=== PATIENT | male | born 1975 | race African-American/Black ===

== ENCOUNTER 2024-08-12 14:06 | Inpatient (IN) | payer OTHER, MEDICAID ==
[~2024-08-12] VITALS: Ht 195.6 cm; Wt 87.8 kg
[2024-08-12] VITALS (25 sets, daily range): BP systolic 73–196; BP diastolic 44–107; PULSE 72–114; RESP 16–24; TEMP 97.6; O2SAT 95–100
[~2024-08-12 14:06] MED LIST: OXYC30TA50 PO; PANT40T PO; PROM25TA10 PO; insulin
[2024-08-12] MEDS: AMIODARONE BOLUS KIT 100 ML IV ONE (14:17)
[2024-08-12] MEDS: AMIODARONE 360mg/200mL PREMIX 200 ML IV ONE ×2 (14:27→14:38)
[2024-08-12] MEDS: MIDAZOLAM DRIP 50 mg/50mL 50 ML IV ONE ×2 (14:36→15:48)
[2024-08-12] MEDS: EPINEPHrine HCL 250 ML IV ONE (14:38)
[2024-08-12] MEDS: NOREPINEPHRINE 8 MG/250ML KIT 250 ML IV SCH (14:42)
--- NOTE | 2024-08-12 15:06 | DVH ---
CHEST RADIOGRAPH Indication: POST INTUBATION AND OG Technique: Single frontal view of the chest was obtained COMPARISON: None FINDINGS: Lines and Tubes: Endotracheal tube, enteric catheter, left and right central venous catheter is in sa tisfactory position. Lungs: Clear Pleura: No effusion. No pneumothorax. Cardiomediastinal contours: Unremarkable Bones: Unremarkable IMPRESSION: Lines and tubes in satisfactory position.
[2024-08-12 15:09] LABS: Hematocrit 32.2 % (41.0-53.0); Mean Corpuscular Volume 102.8 fL (80.0-100.0); Red Blood Cells 3.14 10^6/uL (4.5-5.90)
[2024-08-12 15:10] LABS: Mean Corpuscular Hemoglobin 31.8 pg (28.0-32.0); Mean Corpuscular Hgb Conc. 30.9 g/dL (32.0-36.0); Platelet Count (auto) 172 10^3/uL (140-450); Red Cell Distribution Width 13.7 % (11.8-14.3)
[2024-08-12 15:14] LABS: Basophils % (manual) 0 (0.0-2.0); Blast Cells 0; Eosinophils % (manual) 0 (0-7); Myelocytes % 0; Promyelocytes % 0; Reactive Lymphocytes 0
[2024-08-12] MEDS: NOREPINEPHRINE 8 MG/250ML KIT 250 ML IV ONE (15:15)
[2024-08-12] MEDS: EPINEPHrine HCL 250 ML IV SCH (15:16)
[2024-08-12] MEDS: MIDAZOLAM DRIP 50 mg/50mL 50 ML IV SCH (15:17)
[2024-08-12 15:20] LABS: Alanine Aminotransferase 201 U/L (7-40); Albumin 3.1 g/dL (3.2-4.8); Alkaline Phosphatase 67 U/L (46-116); Anion Gap 18 (5-15); Aspartate Aminotransferase 290 U/L (13-40); BUN/Creatinine Ratio 3.8 (10.0-20.0); Blood Urea Nitrogen 16 mg/dL (9-23); Carbon Dioxide 22 mmol/L (20-31); Chloride 103 mmol/L (98-107); Glucose 321 mg/dL (74-106); Magnesium 2.2 mg/dL (1.6-2.6); Potassium 3.7 mmol/L (3.5-5.1); Sodium 143 mmol/L (136-145); Total Protein 5.3 g/dL (5.7-8.2)
[2024-08-12 15:21] LABS: Bilirubin, Total 0.2 mg/dL (0.2-1.0); Lactic Acid w/Reflex 12.8 mmol/L (0.4-2.0)
[2024-08-12 15:24] LABS: INR 1.16 (0.9-1.15); Partial Thromboplastin Time 39.3 SEC (24.5-34.5); Prothrombin Time 12.1 sec (9.3-11.8)
[2024-08-12] MEDS: PROPOFOL 100 ML IV SCH (15:28)
--- NOTE | 2024-08-12 15:38 | ECG ---
[facility] Test Date: 2024-08-12 Test Time: 15:36:50 Pat Name: KATIE REYES Department: ER Room: [address] [place] [address] Gender: M Activity Therapist: ROWENA : 1975 Requested By: SAMARA RIVERA Order Number: [id number] Reading MD: Shahab Winters Measurements Intervals Bledsoe Rate: 106 P: 76 AK: 176 QRS: -26 QRSD: 135 T: 30 QT: 370 QTc: 492 Interpretive Statements Sinus tachycardia Multiple ventricular premature complexes Right bundle branch block Inferior infarct, old Electronically Signed On 08-14-2024 14:56:52 PDT by Shahab Winters Please click the below link to view image of tracing.
--- NOTE | 2024-08-12 15:42 | DVHINCON2 ---
Date of service: Aug 12, 2024 History of Present Illness 49 yo M with ESRD , ?pad, toe amputation admitted for sob and shock. pt was found unresponsive at HD. he was brought here and bagged per ER team. pt then had PEA per dr morse and then code saritha mckinney. pt was intubated and given epi. now HR 130s and bp 180s . ecg showed ,wide complex rhythm rate of 130s. i was called for immediate assessment and saw the patient within 5 mins of call. Past Medical History reviewed Family History: FH: kidney disease G8 SISTER Family history: Arthritis G8 FATHER Family history: Diabetes mellitus G8 MOTHER G8 FATHER G8 SISTER Allergies: Coded Allergies: Ondansetron (Verified Allergy, Intermediate, Itching, 01/08/23) Metoclopramide (Unverified Allergy, Unknown, 12/19/16) Morphine (Unverified Allergy, Unknown, 12/19/16) Prochlorperazine (Unverified Allergy, Unknown, 12/19/16) Home Meds Active Scripts Pantoprazole Sodium Sesquihydr (Pantoprazole Sodium) 40 Mg Tab, 40 MG PO BID, #60 TAB Prov:MANUEL WAY MD 10/15/16 Reported Medications [insulin] No Conflict Check 01/11/18 Promethazine Hcl (Promethazine Hcl) 25 Mg Tab, 50 MG PO QIDP PRN for NAUSEA OR VOMITING, TAB 10/13/16 Oxycodone Hcl (Roxicodone) 30 Mg Tab, 30 MG PO QIDP PRN for SEVERE PAIN, TAB 01/27/14 Current Medications Current Medications Medications (Trade) Dose Ordered Sig/Clay Route PRN Reason Start Time Stop Time Status Last Admin Midazolam HCl 50 ml @ 1 mls/hr Q24H IV 08/12/24 14:45 08/12/24 15:17 Propofol 100 ml @ 2.19 mls/hr Q24H IV 08/12/24 14:45 08/12/24 15:28 Epinephrine HCl 250 ml @ 7.5 mls/hr Q24H IV 08/12/24 14:45 Norepinephrine Bitartrate 250 ml @ 3.75 mls/hr Q24H IV 08/12/24 14:45 08/12/24 14:42 Review of Systems not obtaiend Vital Signs Vital Signs Date Time Temp Pulse Resp B/P (MAP) Pulse Ox O2 Delivery O2 Flow Rate FiO2 08/12/24 15:28 183/104 08/12/24 14:30 18 95 Mechanical Ventilator+ 100 100 08/12/24 14:22 137 Physical Exam intubated sedated s1 s2 tachycardic diffuse rhonchi abd soft nt/ Labs/Diagnostic Data Labs Test 08/12/24 14:20 Range/Units White Blood Count 11.0 H 4.4-10.8 10^3/uL Red Blood Count 3.14 L 4.5-5.90 10^6/uL Hemoglobin 10.0 L 13.5-17.5 g/dL Hematocrit 32.2 L 41.0-53.0 % Mean Corpuscular Volume 102.8 H 80.0-100.0 fL Mean Corpuscular Hemoglobin 31.8 28.0-32.0 pg Mean Corpuscular Hemoglobin Concent 30.9 L 32.0-36.0 g/dL Red Cell Distribution Width 13.7 11.8-14.3 % Platelet Count 172 140-450 10^3/uL Mean Platelet Volume 8.4 6.9-10.8 fL Neutrophils (%) (Auto) 37.0-80.0 % Lymphocytes (%) (Auto) 10.0-50.0 % Monocytes (%) (Auto) 0.0-12.0 % Basophils (%) (Auto) 0.0-2.0 % Neutrophils # (Auto) 1.6-8.6 10 ^3/uL Lymphocytes # (Auto) 0.4-5.4 10 ^3/uL Monocytes # (Auto) 0-1.3 10 ^3/uL Prothrombin Time 12.1 H 9.3-11.8 sec Prothrombin Time INR 1.16 H 0.9-1.15 Activated Partial Thromboplast Time 39.3 H 24.5-34.5 SEC Sodium Level 143 136-145 mmol/L Potassium Level 3.7 3.5-5.1 mmol/L Chloride Level 103 98-107 mmol/L Carbon Dioxide Level 22 20-31 mmol/L Anion Gap 18 H 5-15 Blood Urea Nitrogen 16 9-23 mg/dL Creatinine 4.24 H 0.700-1.30 mg/dL Glomerular Filtration Rate Calc 16 >90 mL/min BUN/Creatinine Ratio 3.8 L 10.0-20.0 Serum Glucose 321 H 74-106 mg/dL Lactic Acid Level 12.8 *H 0.4-2.0 mmol/L Calcium Level 9.0 8.7-10.4 mg/dL Magnesium Level 2.2 1.6-2.6 mg/dL Total Bilirubin 0.2 0.2-1.0 mg/dL Aspartate Amino Transferase (AST) 290 H 13-40 U/L Alanine Aminotransferase (ALT) 201 H 7-40 U/L Alkaline Phosphatase 67 46-116 U/L Troponin I High Sensitivity 24 </=54 ng/L B-Type Natriuretic Peptide 52.46 0-100 pg/mL Total Protein 5.3 L 5.7-8.2 g/dL Albumin 3.1 L 3.2-4.8 g/dL Assessment cardiac arrest ESRD on HD wide complex tachycardia r/o ACS resp failure AMS Plan/Recommendation agree with current management wide complex rhythm, BMP is pending ,K is pending , pt got some amount of HD stat echo shows hyperdynamic LV ef 70%, trivial pericardial effusion, RV appears normal function limited study fu troponin vent management bicarb if needed renal consult pressors as needed, levophed 40 mins critical care time spent Plan discussed with: Patient CYNDIE BACON MD Aug 12, 2024 15:42
--- NOTE | 2024-08-12 15:43 | DVHINCON2 ---
Date of service: Aug 12, 2024 Reason for Consultation ESRD to manage HD History of Present Illness Patient is 49 y/o male with PMH of ESRD on HD q MWF, DM and hypertension is admitted from HD center when patient became unresponsiveness and hypotension. In the ER patient coded status post cardiac arrest, taken to the cardiac cath technologist by Dr. Ruth status post PTCA and PCI. Patient intubated on ventilator Past Medical History End-stage renal disease, DM, High Lipids, HTN, MT, peripheral arterial disease Past Surgical History PTCA, PCI, Right chest tunneled IJ hemodialysis catheter Bilateral midtarsal foot amputation Allergies: Coded Allergies: Ondansetron (Verified Allergy, Intermediate, Itching, 01/08/23) Metoclopramide (Unverified Allergy, Unknown, 12/19/16) Morphine (Unverified Allergy, Unknown, 12/19/16) Prochlorperazine (Unverified Allergy, Unknown, 12/19/16) Home Meds Active Scripts Pantoprazole Sodium Sesquihydr (Pantoprazole Sodium) 40 Mg Tab, 40 MG PO BID, #60 TAB Prov:MANUEL WAY MD 10/15/16 Reported Medications [insulin] No Conflict Check 01/11/18 Promethazine Hcl (Promethazine Hcl) 25 Mg Tab, 50 MG PO QIDP PRN for NAUSEA OR VOMITING, TAB 10/13/16 Oxycodone Hcl (Roxicodone) 30 Mg Tab, 30 MG PO QIDP PRN for SEVERE PAIN, TAB 01/27/14 Current Medications Current Medications Medications (Trade) Dose Ordered Sig/Clay Route PRN Reason Start Time Stop Time Status Last Admin Midazolam HCl 50 ml @ 1 mls/hr Q24H IV 08/12/24 14:45 08/13/24 07:53 Propofol 100 ml @ 2.19 mls/hr Q24H IV 08/12/24 14:45 08/13/24 09:58 Epinephrine HCl 250 ml @ 7.5 mls/hr Q24H IV 08/12/24 14:45 Norepinephrine Bitartrate 250 ml @ 3.75 mls/hr Q24H IV 08/12/24 14:45 08/12/24 14:42 Ticagrelor (Brilinta) 90 mg BID PO 08/13/24 07:30 08/13/24 07:53 Aspirin 81 mg DAILY PO 08/13/24 10:00 08/13/24 09:23 Atorvastatin Calcium (Lipitor) 80 mg DAILY PO 08/12/24 22:00 08/13/24 09:23 Diagnostic Test (Pha) (Accu-Chek Comfort Curve T) 1 strip Q6HR 08/13/24 12:00 Insulin Human Regular (InsuLIN R) Q6HR SC 08/13/24 12:00 Dextrose 50 ml UD PRN IV Blood Sugar LESS THAN 60 08/13/24 09:00 Family History: FH: kidney disease G8 SISTER Family history: Arthritis G8 FATHER Family history: Diabetes mellitus G8 MOTHER G8 FATHER G8 SISTER Review of Systems Can not be obtained H&P Exam Vital Signs/I&O Vital Sign Date Time Temp Pulse Resp B/P (MAP) Pulse Ox O2 Delivery O2 Flow Rate FiO2 08/13/24 11:17 88 18 107/80 (89) 100 30 08/13/24 10:00 Mechanical Ventilator+ 08/13/24 04:15 98.5 98.5 Intake and Output 08/12/24 08/13/24 19:00 07:00 Intake Total 128.03 ml 1493.82 ml Output Total 700 ml Balance 128.03 ml 793.82 ml Intake Oral 60 ml IV Total 128.03 ml 1433.82 ml Output Urine Total 700 ml Physical Exam Patient intubated on ventilator Lungs clear to auscultation bilaterally Cardiac exam regular rate and rhythm GI soft nontender Arauz catheter Extremity bilateral midtarsal amputation Neuro patient is unresponsive Labs/Diagnostic Data Labs/Diagnostic Data Laboratory Tests Test 08/13/24 06:55 08/13/24 03:30 08/12/24 19:40 08/12/24 18:15 Range/Units Blood Gas Specimen Type Arterial Arterial Blood Gas Sample Site Right radial Right radial Blood Gas Patient Temperature 37.0 37.0 Arterial Blood Date Drawn [id number] Arterial Blood pH 7.443 7.512 H 7.350-7.450 Arterial Blood Partial Pressure CO2 41.2 33.8 L 35.0-48.0 mmHg Arterial Blood Partial Pressure O2 60.9 L 83.2 83.0-108.0 mmHg Arterial Blood HCO3 27.5 26.5 21.0-28.0 mmol/L Arterial Blood Oxygen Saturation 90.3 L 96.0 94.0-98.0 % Arterial Blood Base Excess 3.2 H 3.7 H -2.0-3.0 mmol/L Arterial Blood Oxyhemoglobin 89.8 L 92.9 L 94.0-98.0 % Arterial Blood Carboxyhemoglobin 0.6 2.9 H 0.5-1.5 % Arterial Blood Methemoglobin 0.0 0.3 0.0-1.5 % Obey Test Modified Modified Blood Gas Total Hemoglobin 11.50 L 11.50 L 13.5-17.5 g/dL Blood Gas Set Respiration Rate 16.0 20.0 Blood Gas Modality Vent - ac Vent - ac FiO2 % 30.0 30.0 Blood Gas Tidal Volume 500.0 500.0 Blood Gas PEEP or CPAP 5.0 5.0 White Blood Count 20.1 #H 4.4-10.8 10^3/uL Red Blood Count 3.51 L 4.5-5.90 10^6/uL Hemoglobin 11.1 L 13.5-17.5 g/dL Hematocrit 33.7 L 41.0-53.0 % Mean Corpuscular Volume 95.9 # 80.0-100.0 fL Mean Corpuscular Hemoglobin 31.6 28.0-32.0 pg Mean Corpuscular Hemoglobin Concent 33.0 32.0-36.0 g/dL Red Cell Distribution Width 13.2 11.8-14.3 % Platelet Count 248 140-450 10^3/uL Mean Platelet Volume 8.5 6.9-10.8 fL Neutrophils (%) (Auto) 90.4 H 37.0-80.0 % Lymphocytes (%) (Auto) 4.2 L 10.0-50.0 % Monocytes (%) (Auto) 4.9 0.0-12.0 % Eosinophils (%) (Auto) 0.2 0.0-7.0 % Basophils (%) (Auto) 0.3 0.0-2.0 % Neutrophils # (Auto) 18.1 H 1.6-8.6 10 ^3/uL Lymphocytes # (Auto) 0.9 0.4-5.4 10 ^3/uL Monocytes # (Auto) 1.0 0-1.3 10 ^3/uL Eosinophils # (Auto) 0 0-0.8 10 ^3/uL Basophils # (Auto) 0.1 0-0.2 10 ^3/uL Nucleated Red Blood Cells 0.0 % Sodium Level 143 136-145 mmol/L Potassium Level 3.8 3.5-5.1 mmol/L Chloride Level 101 98-107 mmol/L Carbon Dioxide Level 28 20-31 mmol/L Anion Gap 14 5-15 Blood Urea Nitrogen 26 #H 9-23 mg/dL Creatinine 5.18 H 0.700-1.30 mg/dL Glomerular Filtration Rate Calc 13 >90 mL/min BUN/Creatinine Ratio 5.0 L 10.0-20.0 Serum Glucose 159 #H 74-106 mg/dL Calcium Level 7.9 L 8.7-10.4 mg/dL Total Bilirubin 0.2 0.2-1.0 mg/dL Aspartate Amino Transferase (AST) 433 H 13-40 U/L Alanine Aminotransferase (ALT) 255 H 7-40 U/L Alkaline Phosphatase 83 46-116 U/L Total Protein 6.5 5.7-8.2 g/dL Albumin 3.8 3.2-4.8 g/dL Urine Color Light-brown Yellow Urine Clarity Turbid H Clear Urine pH 6.0 5.0-9.0 Urine Specific [place] 1.015 1.001-1.035 Urine Protein 2+ H Negative Urine Ketones Negative Negative Urine Blood Negative Negative /uL Urine Nitrite Negative Negative Urine Bilirubin Negative Negative Urine Urobilinogen Normal Negative mg/dL Urine Leukocyte Esterase Negative Negative /uL Urine RBC <1 0 - 3 /hpf Urine Microscopic WBC < 1 0-3 /HPF Urine Squamous Epithelial Cells Mod <5 /hpf Urine Bacteria None seen None Seen /hpf Urine Glucose Normal Normal mg/dL Test 08/12/24 17:27 08/12/24 16:22 08/12/24 15:46 08/12/24 14:20 Range/Units Lactic Acid Level 3.6 *H 12.8 *H 0.4-2.0 mmol/L Troponin I High Sensitivity 05908 *H 5974 *H 24 </=54 ng/L Blood Gas Specimen Type Arterial Blood Gas Sample Site Right radial Blood Gas Patient Temperature 37.0 Arterial Blood Date Drawn [id number] Arterial Blood pH 7.170 *L 7.350-7.450 Arterial Blood Partial Pressure CO2 52.4 H 35.0-48.0 mmHg Arterial Blood Partial Pressure O2 222.9 H 83.0-108.0 mmHg Arterial Blood HCO3 18.7 L 21.0-28.0 mmol/L Arterial Blood Oxygen Saturation 99.1 H 94.0-98.0 % Arterial Blood Base Excess -9.8 L -2.0-3.0 mmol/L Arterial Blood Oxyhemoglobin 94.9 94.0-98.0 % Arterial Blood Carboxyhemoglobin 3.9 H 0.5-1.5 % Arterial Blood Methemoglobin 0.3 0.0-1.5 % Obey Test Yes Blood Gas Total Hemoglobin 11.90 L 13.5-17.5 g/dL Blood Gas Set Respiration Rate 18.0 Blood Gas Modality Vent - ac FiO2 % 80.0 Blood Gas Tidal Volume 500.0 Blood Gas PEEP or CPAP 5.0 Blood Gas Critical Value Read Back Yes Blood Gas Notified Whom janessa Head md Blood Gas Notified Time [id number] Blood Gas Notified By rebeka Freire rrt White Blood Count 11.0 H 4.4-10.8 10^3/uL Red Blood Count 3.14 L 4.5-5.90 10^6/uL Hemoglobin 10.0 L 13.5-17.5 g/dL Hematocrit 32.2 L 41.0-53.0 % Mean Corpuscular Volume 102.8 H 80.0-100.0 fL Mean Corpuscular Hemoglobin 31.8 28.0-32.0 pg Mean Corpuscular Hemoglobin Concent 30.9 L 32.0-36.0 g/dL Red Cell Distribution Width 13.7 11.8-14.3 % Platelet Count 172 140-450 10^3/uL Mean Platelet Volume 8.4 6.9-10.8 fL Neutrophils (%) (Auto) 37.0-80.0 % Lymphocytes (%) (Auto) 10.0-50.0 % Monocytes (%) (Auto) 0.0-12.0 % Basophils (%) (Auto) 0.0-2.0 % Neutrophils # (Auto) 1.6-8.6 10 ^3/uL Lymphocytes # (Auto) 0.4-5.4 10 ^3/uL Monocytes # (Auto) 0-1.3 10 ^3/uL Differential Total Cells Counted 100.0 100 Neutrophils % (Manual) 40 37.0-80.0 Band Neutrophils % (Manual) 6 Lymphocytes % (Manual) 41 10.0-50.0 Monocytes % (Manual) 12 0-12 Eosinophils % (Manual) 0 0-7 Basophils % (Manual) 0 0.0-2.0 Metamyelocytes % (manual) 1 Myelocytes % (Manual) 0 Promyelocytes % (Manual) 0 Blast Cells % (Manual) 0 Reactive Lymphocytes 0 Platelet Estimate Adequate Anisocytosis (manual) Slight Macrocytosis Slight [place] Cells Few Prothrombin Time 12.1 H 9.3-11.8 sec Prothrombin Time INR 1.16 H 0.9-1.15 Activated Partial Thromboplast Time 39.3 H 24.5-34.5 SEC Sodium Level 143 136-145 mmol/L Potassium Level 3.7 3.5-5.1 mmol/L Chloride Level 103 98-107 mmol/L Carbon Dioxide Level 22 20-31 mmol/L Anion Gap 18 H 5-15 Blood Urea Nitrogen 16 9-23 mg/dL Creatinine 4.24 H 0.700-1.30 mg/dL Glomerular Filtration Rate Calc 16 >90 mL/min BUN/Creatinine Ratio 3.8 L 10.0-20.0 Serum Glucose 321 H 74-106 mg/dL Uric Acid 4.3 3.7-9.2 mg/dL Calcium Level 9.0 8.7-10.4 mg/dL Phosphorus Level 5.6 H 2.4-5.1 mg/dL Magnesium Level 2.2 1.6-2.6 mg/dL Total Bilirubin 0.2 0.2-1.0 mg/dL Aspartate Amino Transferase (AST) 290 H 13-40 U/L Alanine Aminotransferase (ALT) 201 H 7-40 U/L Alkaline Phosphatase 67 46-116 U/L B-Type Natriuretic Peptide 52.46 0-100 pg/mL Total Protein 5.3 L 5.7-8.2 g/dL Albumin 3.1 L 3.2-4.8 g/dL Amylase Level 94 30-118 U/L Assessment ESRD on HD Acute respiratory failure, intubated on ventilator Status post cardiac arrest Acute MT status post PTCA/PCI 6/2 DM type II Hyperglycemia Septic shock Anemia of CKD, we will compensated REC: Resume hemodialysis 3 times weekly Strict I&Os IV Abx Insulin SS IV pressors for BP support Cardiology on board Will continue to follow Patient seen and examined by myself. I discussed my plan of care with the primary nurse at the bedside I would like to thank Dr. Head for the consult, will follow up Plan discussed with: Spouse, Other (Nurse) YANNA GARCIA MD Aug 12, 2024 15:42
[2024-08-12 15:54] LABS: Base Excess -9.8 mmol/L (-2.0-3.0)
--- NOTE | 2024-08-12 15:58 | DVHSR ---
APPROVED REPORT EXAM: Two-dimensional and M-mode echocardiogram with Doppler and color Doppler. Blood Pressure: 142/73 mmHg INDICATION S/P CPR RISK FACTORS Height: 6'0", Weight: 160 DIMENSIONS LVDd3.4 (3.8-5.7cm)LA (2D) (1.9-4.0cm)Aortic Root3.8 (2.0-3.7cm) LVDs2.3 (2.5-4.0cm)LA (MM) (1.9-4.0cm)Aortic Cusp Exc1.8 (1.5-2.0cm) EF (%) 65.0 (55-70%)Rt. Atrium (1.9-4.0cm)Asc. Aorta cm IVSd1.1 (0.7-1.1cm)RV (D) (1.8-2.4cm) PWd1.3 (0.7-1.1cm) Mitral Valve MitralMitral Stenosis E wave0.75m/sMV Mean GR.mmHg E/A ratio0.02D MVAcm2 Aortic Valve Aortic ValveAortic Stenosis V11.43m/Son Mean GR.3mmHg V21.19m/Son Peak GR.6mmHg LVOT Diameter2.4 (1.8-2.4cm)Doppler AVA5.43cm2 Pulmonic Valve V20.85m/s Tricuspid Valve TR Velocity3.39m/s [id number] Other Information Quality : LimitedRhythm : Technically limited study due to body habitus, patient position and on vent. Conclusion lvef 65-70% hyperdyanamic LV in setting of sinus tach rate of 130 mild LVH normal rv function normal atria mild to moderate tricuspid regurg moderate pulm htn trivial to small pericardial effusion noted, no HD compromise
[2024-08-12] MEDS: SODIUM BICARB 8.4% 50Meq/50ml SYR Vial IV ONE ×2 (16:07→17:53)
[2024-08-12 16:11] LABS: Uric Acid 4.3 mg/dL (3.7-9.2)
[2024-08-12] MEDS: CLINDAMYCIN 300MG IV 50 ML IV ONE (16:14)
[2024-08-12] MEDS: SODIUM CHLORIDE 0.9% 500 ML IV ONE ×2 (16:14→22:17)
[2024-08-12 16:15] LABS: Anisocytosis Slight; Band Neutrophils % (manual) 6; Lymphocytes % (manual) 41 (10.0-50.0); Macrocytosis Slight; Metamyelocytes % 1; Monocytes % (manual) 12 (0-12); Platelet Estimate Adequate
[2024-08-12 16:16] LABS: Phosphorus 5.6 mg/dL (2.4-5.1)
--- NOTE | 2024-08-12 16:21 | ED.PDOC ---
History of Present Illness HPI Comments 49-year-old male brought by paramedics from dialysis center because he was altered while getting dialysis. Unable to get a good history from the paramedics. Patient came in being bagged when transferred the patient to our gurney of the he had no pulses. We started CPR introduced ET tube. Patient did come without intravenous line ET tube or CPR. He was not sick prior to going to dialysis. History of chronic kidney disease on dialysis Monday hypertension. Chief Complaint: ALOC Time Seen by MD: 14:07 Primary Care Provider: unknown Reviewed Notes: Nurses Notes, Medications, Allergies Allergies: Coded Allergies: Ondansetron (Verified Allergy, Intermediate, Itching, 01/08/23) Metoclopramide (Unverified Allergy, Unknown, 12/19/16) Morphine (Unverified Allergy, Unknown, 12/19/16) Prochlorperazine (Unverified Allergy, Unknown, 12/19/16) Home Meds Active Scripts Pantoprazole Sodium Sesquihydr (Pantoprazole Sodium) 40 Mg Tab, 40 MG PO BID, #60 TAB Prov:MANUEL WAY MD 10/15/16 Reported Medications [insulin] No Conflict Check 01/11/18 Promethazine Hcl (Promethazine Hcl) 25 Mg Tab, 50 MG PO QIDP PRN for NAUSEA OR VOMITING, TAB 10/13/16 Oxycodone Hcl (Roxicodone) 30 Mg Tab, 30 MG PO QIDP PRN for SEVERE PAIN, TAB 01/27/14 Information Source: Emergency Med Personnel Mode of Arrival: EMS Severity: Moderate Timing: Hours Duration: Since onset Past Medical History PAST MEDICAL HISTORY: DM, High Lipids, HTN Surgical History: Denies all surgeries Family History Family History: Unknown Social History Smoker: Non-Smoker Alcohol: Denies ETOH Use Drugs: Marijuana Lives In: Home Unable to Obtain due to: Altered Mental Status Physical Exam General Appearance: Moderate Distress HEENT: Other (Pupils sluggish) Neck: Normal Inspection Respiratory: Accessory Muscle Use, Other (Intubated the patient) Cardiovascular: Other (No pulse) Breast Exam: Deferred Gastrointestinal: Soft Genitalia: Deferred Pelvic: Deferred Rectal: Deferred Extremities: Other (Bilateral toe amputation) Neurologic: Disoriented Cerebellar Function: NOT DONE Reflexes: NOT DONE Skin: Pallor Peripheral Pulses: 3+ Radial (R), 3+ Radial (L) Lymphatic: NOT DONE Was a procedure done? Was a procedure done?: Yes Sedation Sedation?: No Central Line Recorder of insertion practice: Aluminum Shingle Roofer Occupation of log rafter: Attending Physician Indication: Hypotension, CVP monitoring Room prepared for procedure: Yes Aluminum Shingle Roofer performed hand hygien: Yes Maximal sterile barrier precau: Mask/Eye shield, Sterile gown Skin Preparation: Chlorhexidine gluconate, Providine iodine Skin preparation completely dr: Yes Insertion site: Right, Femoral Central line catheter type: [id number] dialysis Number of lumens: 3 Antiseptic ointment applied to: Yes Intubation Indication: Respiratory Insufficiency Prep: Preoxygenation Pretreated with: Analgesia Medicated with: Vecuronium Intubation Approach: Orotracheal Intubation size: cm (8) EKG EKG : Pulse Rate (adult): 150 Cardiac Rhythm: Afib Block: LBBB Differential Dx Considerations may include: Encephalopathy Answering his renal disease X-Ray, Labs, Meds, VS Vital Signs Date Time Temp Pulse Resp B/P (MAP) Pulse Ox O2 Delivery O2 Flow Rate FiO2 08/12/24 17:30 106 08/12/24 17:30 103 26 174/98 (123) 97 08/12/24 17:29 174/98 08/12/24 17:29 174/98 08/12/24 17:20 180/88 08/12/24 17:15 108 26 174/97 (122) 97 08/12/24 17:00 112 20 212/107 (142) 97 08/12/24 17:00 180/88 08/12/24 16:45 111 26 187/100 (129) 97 08/12/24 16:30 128/84 08/12/24 16:30 128/84 08/12/24 16:30 109 14 128/84 (99) 96 08/12/24 16:23 114 20 196/107 (136) 96 30 08/12/24 16:20 160/92 08/12/24 16:20 150 08/12/24 16:15 120 14 183/105 (131) 96 08/12/24 16:00 107 20 105/71 (82) 99 08/12/24 16:00 160/92 08/12/24 15:45 106 18 94/63 (73) 100 08/12/24 15:36 106 08/12/24 15:30 115 17 163/95 (117) 100 08/12/24 15:28 183/104 08/12/24 15:17 180/98 08/12/24 15:17 150/94 08/12/24 15:15 118 18 183/104 (130) 100 08/12/24 15:00 119 18 183/102 (129) 100 08/12/24 14:45 78 18 119/81 (94) 100 08/12/24 14:42 80/40 08/12/24 14:30 18 95 Mechanical Ventilator+ 100 100 08/12/24 14:22 137 08/12/24 14:15 86 18 73/44 (54) 98 100 08/12/24 14:15 77 8 142/73 (96) 87 Lab Test 08/12/24 17:27 08/12/24 16:22 08/12/24 15:46 08/12/24 14:20 Range/Units Lactic Acid Level Pending 12.8 *H 0.4-2.0 mmol/L Troponin I High Sensitivity Pending 5974 *H 24 </=54 ng/L Blood Gas Specimen Type Arterial Blood Gas Sample Site Right radial Blood Gas Patient Temperature 37.0 Arterial Blood Date Drawn [id number] Arterial Blood pH 7.170 *L 7.350-7.450 Arterial Blood Partial Pressure CO2 52.4 H 35.0-48.0 mmHg Arterial Blood Partial Pressure O2 222.9 H 83.0-108.0 mmHg Arterial Blood HCO3 18.7 L 21.0-28.0 mmol/L Arterial Blood Oxygen Saturation 99.1 H 94.0-98.0 % Arterial Blood Base Excess -9.8 L -2.0-3.0 mmol/L Arterial Blood Oxyhemoglobin 94.9 94.0-98.0 % Arterial Blood Carboxyhemoglobin 3.9 H 0.5-1.5 % Arterial Blood Methemoglobin 0.3 0.0-1.5 % Obey Test Yes Blood Gas Total Hemoglobin 11.90 L 13.5-17.5 g/dL Blood Gas Set Respiration Rate 18.0 Blood Gas Modality Vent - ac FiO2 % 80.0 Blood Gas Tidal Volume 500.0 Blood Gas PEEP or CPAP 5.0 Blood Gas Critical Value Read Back Yes Blood Gas Notified Whom janessa Rivera md Blood Gas Notified Time [id number] Blood Gas Notified By rebeka Freire rrt White Blood Count 11.0 H 4.4-10.8 10^3/uL Red Blood Count 3.14 L 4.5-5.90 10^6/uL Hemoglobin 10.0 L 13.5-17.5 g/dL Hematocrit 32.2 L 41.0-53.0 % Mean Corpuscular Volume 102.8 H 80.0-100.0 fL Mean Corpuscular Hemoglobin 31.8 28.0-32.0 pg Mean Corpuscular Hemoglobin Concent 30.9 L 32.0-36.0 g/dL Red Cell Distribution Width 13.7 11.8-14.3 % Platelet Count 172 140-450 10^3/uL Mean Platelet Volume 8.4 6.9-10.8 fL Neutrophils (%) (Auto) 37.0-80.0 % Lymphocytes (%) (Auto) 10.0-50.0 % Monocytes (%) (Auto) 0.0-12.0 % Basophils (%) (Auto) 0.0-2.0 % Neutrophils # (Auto) 1.6-8.6 10 ^3/uL Lymphocytes # (Auto) 0.4-5.4 10 ^3/uL Monocytes # (Auto) 0-1.3 10 ^3/uL Differential Total Cells Counted 100.0 100 Neutrophils % (Manual) 40 37.0-80.0 Band Neutrophils % (Manual) 6 Lymphocytes % (Manual) 41 10.0-50.0 Monocytes % (Manual) 12 0-12 Eosinophils % (Manual) 0 0-7 Basophils % (Manual) 0 0.0-2.0 Metamyelocytes % (manual) 1 Myelocytes % (Manual) 0 Promyelocytes % (Manual) 0 Blast Cells % (Manual) 0 Reactive Lymphocytes 0 Platelet Estimate Adequate Anisocytosis (manual) Slight Macrocytosis Slight [place] Cells Few Prothrombin Time 12.1 H 9.3-11.8 sec Prothrombin Time INR 1.16 H 0.9-1.15 Activated Partial Thromboplast Time 39.3 H 24.5-34.5 SEC Sodium Level 143 136-145 mmol/L Potassium Level 3.7 3.5-5.1 mmol/L Chloride Level 103 98-107 mmol/L Carbon Dioxide Level 22 20-31 mmol/L Anion Gap 18 H 5-15 Blood Urea Nitrogen 16 9-23 mg/dL Creatinine 4.24 H 0.700-1.30 mg/dL Glomerular Filtration Rate Calc 16 >90 mL/min BUN/Creatinine Ratio 3.8 L 10.0-20.0 Serum Glucose 321 H 74-106 mg/dL Uric Acid 4.3 3.7-9.2 mg/dL Calcium Level 9.0 8.7-10.4 mg/dL Phosphorus Level 5.6 H 2.4-5.1 mg/dL Magnesium Level 2.2 1.6-2.6 mg/dL Total Bilirubin 0.2 0.2-1.0 mg/dL Aspartate Amino Transferase (AST) 290 H 13-40 U/L Alanine Aminotransferase (ALT) 201 H 7-40 U/L Alkaline Phosphatase 67 46-116 U/L B-Type Natriuretic Peptide 52.46 0-100 pg/mL Total Protein 5.3 L 5.7-8.2 g/dL Albumin 3.1 L 3.2-4.8 g/dL Amylase Level 94 30-118 U/L Current Medications Medications (Trade) Dose Ordered Sig/Clay Route Start Time Stop Time Status Last Admin Amiodarone HCl 100 ml @ 600 mls/hr ONCE ONCE IV 08/12/24 14:30 08/12/24 14:39 DC 08/12/24 14:17 Midazolam HCl 50 ml @ 1 mls/hr Q24H IV 08/12/24 14:45 08/12/24 15:17 Propofol 100 ml @ 2.19 mls/hr Q24H IV 08/12/24 14:45 08/12/24 15:28 Norepinephrine Bitartrate 250 ml @ 3.75 mls/hr Q24H IV 08/12/24 14:45 08/12/24 14:42 Sodium Bicarbonate 100 ml ONCE ONCE IV 08/12/24 16:00 08/12/24 16:01 DC 08/12/24 16:07 Sodium Chloride 500 ml @ 500 mls/hr Q1H ONCE IV 08/12/24 16:00 08/12/24 16:59 DC 08/12/24 16:14 Piperacillin Sod/ Tazobactam Sod 100 ml @ 100 mls/hr ONCE ONCE IV 08/12/24 16:00 08/12/24 16:59 DC 08/12/24 16:57 Clindamycin Phosphate 50 ml @ 50 mls/hr ONCE ONCE IV 08/12/24 16:00 08/12/24 16:59 DC 08/12/24 16:14 Patient unconscious. Came from dialysis. No pulse upon arrival. Started CPR. He was being bagged. Intubated the patient. Blood pressure on the low side. ACLS drugs use. Blood sugar elevated. Lactic acid level are elevated. Chronic kidney disease on dialysis. WBC slightly elevated. ABG does show metabolic acidosis with compensation. Adjusted the ventilator settings. Was able to revive the patient. Was given Zosyn. Was given clindamycin. Nephrology consultation. Family later came to bedside. Cardiology at bedside. Echocardiogram performed. Has good motion. Continue monitoring. Time of 1ST Reevaluation: 16:17 Reevaluation 1ST: Unchanged Patient Education/Counseling: Pt Unresponsive Family Education/Counseling: No Family Present Sepsis Sepsis Reasesment Focused Exam Orders: Laboratory Tests 08/12/24 14:20: Lactic Acid Level 12.8 08/12/24 17:27: Departure 1 Departure Time of Disposition: 16:20 Impression: Primary Impression: Cardiac arrest Additional Impressions: Metabolic encephalopathy Respiratory failure Qualified Codes: J96.01 - Acute respiratory failure with hypoxia NSTEMI (non-ST elevated myocardial infarction) Disposition: 09 ADMITTED INPATIENT Admit to: Med Surg Condition: Guarded Critical Care Note Critical Care Time?: Yes (90 min-critical care time only) Critical care comment: Continue to monitor Stability Stability form required: No Heart Score Heart Score: Heart Score Response (Comments) Value History Slightly Suspicious 0 EKG Normal 0 Age 45-64 1 Risk Factors >3 or Hx ASHD 2 Troponin >3 x's Normal limit 2 Total 5 SAMARA RIVERA MD Aug 12, 2024 16:20
[2024-08-12] MEDS: PIPERACILLIN-TAZOB 3.375GM 100 ML IV ONE (16:57)
[2024-08-12] MEDS: LABETALOL HCL 20 MG/4 ML VL IV ONE (17:29)
[2024-08-12] MEDS: HEPARIN IN NS 1000Units/500mL 1,500 ML ONE (17:37)
[2024-08-12] MEDS: IODIXANOL 320MG/ML 100ML BTL IV ONE (17:37)
[2024-08-12] MEDS: LIDOCAINE 2%HCL (LOCAL ANESTH.) INJ 20ML MDV ONE (17:41)
[2024-08-12] MEDS: SODIUM CHL 0.9% 50 ML ONE (17:41)
[2024-08-12] MEDS: ANGIOMAX 250 MG VIAL IV ONE (17:41)
--- NOTE | 2024-08-12 18:05 | RESUS ---
CHRISTINE BRITTON ASSESSSMENT History of Events History of Events: Patient brought to ER via EMS for c/o ALOC after dialysis treatment. Per ER Staff, patient was being intubated for airway protection when he suddenly became apneic and bedside phototypesetting equipment monitor displayed bradycardia. Upon assessment, no palpable detected. Christine Britton initiated Initial Information Date: Aug 12, 2024 Time: 14:11 Location of Arrest: ER Arrest Witnessed: Yes CPR started initial time: 14:11 CPR started by whom: Hospital Staff Pre-Hospital Care: ACLS Type of arrest: Cardiac, Respiratory Spontaneous Respirations: No Monitoring: Pulse Oximetry, Telemetry Crash Cart Opened and Supplies: Yes Airway Ventilation Breathing at Onset: Apneic Oxygen Delivery Method: Ambu-Bag Artificial Ventilation: Bag/Endo tube Intubation Size: 7.5 cuffed Intubated by: dr hinds Intubation Attempts: 1 Intubated orally: Yes Intubated Nasaly: No Tube secured at: 24 Cricoid pressure done: No CO2 indicator used: Yes Confirmation: Auscultation, Exhaled CO2 Circulation Circulation #1: Time: 14:13 Circulation Comment: asystole Circulation #2: Time: 14:15 Circulation Comment: ASYSTOLE Circulation #3: Time: 14:17 Pulse Rate (adult): 144 Blood Pressure Systolic: 96 Blood Pressure Diastolic: 59 Temperature (Fahrenheit): 96.8 Circulation Comment: ROSC AFIB RVR Procedure - IV Procedure - IV : IV Side: Right IV Location: Antecubital IV Catheter Type: Peripheral IV IV Placed: Pre-Hospital IV Placed by ems IV Gauge: 20 IV Line Care: Saline Flush Medications & Response Medications and Responses #1: Medication Time: 14:11 ADULT Medications Given ADULT: Epinephrine 1 mg Route of Administration: IV Medications and Responses #2: Medication Time: 14:12 ADULT Medications Given ADULT: Sodium Bacarbinate 50 meq, Calcium Chloride 10 mL Route of Administration: IV Medications and Responses #3: Medication Time: 14:14 ADULT Medications Given ADULT: Epinephrine 1 mg Route of Administration: IV Medications and Responses #4: Medication Time: 14:15 ADULT Medications Given ADULT: Sodium Bacarbinate 50 meq Route of Administration: IV Medications and Responses #5: Medication Time: 14:18 ADULT Medications Given ADULT: Sodium Bacarbinate 50 meq Route of Administration: IV Medication Comment: given post ROSC as ordered by Dr Duran Medications and Responses #6: Medication Time: 14:24 ADULT Medications Given ADULT: Amiodarone 150 mg Route of Administration: IV Procedure - Central Venous Cat Central venous catheter time: 14:13 Central venous catheter site: Rt Femoral Nurses Notes [place] Coma Scale Eye Opening: None (1) [place] Coma Scale Verbal: None (1) [place] Coma Scale Motor: None (1) Pupil Reaction: Sluggish Bedside Blood Glucose: 213 EKG Rhythm: Atrial Fibrillation Nurses Notes - Comment: EKG- AFIB RVR Time Code Ended Time Code Ended: 14:17 Post Arrest Status: Ventilated Outcome of code: Successful Family notified: Yes Code Team Present: DR HINDS RT MAYUR BLANC RN LOWELL LIAO LAURA ERT GABRIELA, DANIELLA RNRUIZ ZHANG ROSC Time of ROSC: 14:17 Marita Dickens Aug 12, 2024 18:05
[2024-08-12 18:31] LABS: Base Excess 3.7 mmol/L (-2.0-3.0)
--- NOTE | 2024-08-12 18:35 | DVH ---
EXAM: CT Head Without Intravenous Contrast CLINICAL INDICATION: altered TECHNIQUE: Axial computed tomography images of the head/brain without intravenous contrast. This CT exam was performed using one or more of the following dose reduction techniques: automated exposure control, adjustment of the mA and/or kV according to patient size, and/or use of iterative reconstru ction technique. CONTRAST: COMPARISON: None FINDINGS: BRAIN AND EXTRA-AXIAL SPACES: Multiple hypodense lesion in the left cerebellar hemisphere. Further evaluation with MRI is recommended. Areas of decreased attenuation in the deep cerebral white matte r are consistent with small vessel ischemic/degenerative changes. The cerebral and cerebellar sulci are prominent consistent with brain atrophy. No acute intracranial hemorrhage. BONES/JOINTS: Unremarkable. No acute fracture. SOFT TISSUES: Unremarkable. SINUSES: Unremarkable as visualized. No acute sinusitis. MASTOID AIR CELLS: Unremarkable as visualized. No mastoid effusion. OTHER FINDINGS: . . IMPRESSION: 1. No acute intracranial hemorrhage. 2. Multiple hypodense lesion in the left cerebellar hemisphere. Further evaluation with MRI is maryuri mmended. 3. Small vessel ischemic/degenerative changes. 4. Generalized brain atrophy.
[2024-08-12] MEDS: TICAGRELOR 90 MG TAB ONE (19:04)
[2024-08-12] MEDS: ASPirin 325 MG TAB ONE (19:04)
[2024-08-12 19:42] LABS: Urine Bacteria None Seen /hpf (None Seen)
[2024-08-12 19:58] LABS: Urine Blood Negative /uL (Negative); Urine Clarity Turbid (Clear); Urine Color Light-Brown (Yellow); Urine Protein, UAD 2+ (Negative); Urine Specific Gravity 1.015 (1.001-1.035); Urine Squamous Epithelial Cell MOD /hpf (<5); Urine Urobilinogen Normal (Negative); Urine WBC < 1 /HPF (0-3)
[2024-08-12] MEDS: AMIODARONE 360mg/200mL PREMIX 200 ML IV SCH (20:57)
[2024-08-12] MEDS: ATORVASTATIN 20 MG TAB PO SCH (21:02)
--- NOTE | 2024-08-12 21:43 | DVHOP ---
DATE OF SURGERY: 08/12/2024 PREOPERATIVE DIAGNOSES: Acute myocardial infarction, non-ST elevation myocardial infarction, cardiac arrest, shock. POSTOPERATIVE DIAGNOSES: Acute myocardial infarction, non-ST elevation myocardial infarction, cardiac arrest, shock. DESCRIPTION OF PROCEDURE: The patient's family signed informed consent. He understands the risks, benefits, and alternatives of procedure. They wished to proceed. He was brought to the labor standards director in NPO state. He was prepped in a sterile fashion. The patient was on Versed and fentanyl from being intubated. I gave 5 mL of 2% lidocaine to the left groin with antegrade flow wall puncture using ultrasound-guided access. I cannulated his left common femoral artery and saved to the PACS system and placed a 6-Ukrainian sheath. Ipsilateral angiogram was performed showing appropriate arteriotomy site. Then, I took a 6-Ukrainian JL4 and JR4 for selective coronary angiogram. FINDINGS: * Left vein: Short left vein, bifurcates LAD and circumflex free of any severe disease with mild diffuse plaquing. * LAD: LAD in the ostium and proximal portion are patent. Mid LAD has mild plaquing, but widely patent and mid and distal apical LAD is free of any severe disease. * Circumflex: Circumflex in the very proximal 3-4 mm has a 99% ruptured plaque with thrombus noted. There appears to be KAITLIN 2 flow with several OM branches going on distally and the distal circumflex in the AV groove is overall a small to moderate-sized vessel. * RCA: RCA is a moderately large vessel. It is dominant. It is free of any severe disease in the proximal, mid, and distal portion giving off a PDA and PL branch with mild diffuse plaque. * Intervention: I switched out to 6-Ukrainian XB 3.5 guide. Angiomax bolus and drip had been initiated. I brought an 0.014 x 190 cm BMW when I crossed into the distal circumflex. At this point, I took a 3.0 x 15 mm balloon and performed balloon angioplasty up to 10 atmospheres. Following this, I decided to stent with a 4.0 x 12 mm stent in the proximal circumflex and multiple views. I was satisfied with my position and the balloon was inflated up to 14 atmospheres with two separate inflations, each lasting 15 seconds. Following this, I removed the stent balloon. Angiogram was performed showing 0% residual stenosis and excellent flow throughout the circumflex and the coronary tree. The patient was initially on pressors, then was off pressors during the CT scan and now back on pressors for the cath as the blood pressure was in the 60s to 80s, but he was otherwise hemodynamically stable. At this point, all guides and wires were removed and a 6-Ukrainian Angio-Seal was delivered for closure. There were no immediate complications. The patient was Brilinta and aspirin loaded. CONCLUSION: Successful PCI of a 99% ruptured plaque in the proximal circumflex and placement of drug-eluting stent. PLAN: * Continue ICU admission. * DAPT. * Statin therapy. * Pressors as needed. * Dialysis Team evaluating the patient. Lonnie Ruth MD CM/THAI TID: [id number] RECEIPT: [id number]
[2024-08-12] MEDS: SODIUM CHLORIDE 0.9% 1,000 ML IV ONE (22:17)
[2024-08-13] VITALS (107 sets, daily range): BP systolic 99–195; BP diastolic 66–106; PULSE 77–115; RESP 15–25; TEMP 98.1–98.6; O2SAT 100
[2024-08-13 04:19] LABS: Alkaline Phosphatase 83 U/L (46-116); Anion Gap 14 (5-15); Carbon Dioxide 28 mmol/L (20-31); Chloride 101 mmol/L (98-107); Potassium 3.8 mmol/L (3.5-5.1); Sodium 143 mmol/L (136-145); Total Protein 6.5 g/dL (5.7-8.2)
[2024-08-13 04:20] LABS: Albumin 3.8 g/dL (3.2-4.8)
[2024-08-13 04:26] LABS: Alanine Aminotransferase 255 U/L (7-40); Aspartate Aminotransferase 433 U/L (13-40); Bilirubin, Total 0.2 mg/dL (0.2-1.0); Blood Urea Nitrogen 26 mg/dL (9-23); Calcium 7.9 mg/dL (8.7-10.4); Glucose 159 mg/dL (74-106)
[2024-08-13 04:39] LABS: Basophils # (auto) 0.1 10 ^3/uL (0-0.2); Basophils % (auto) 0.3 % (0.0-2.0); Eosinophils # (auto) 0 10 ^3/uL (0-0.8); Eosinophils % (auto) 0.2 % (0.0-7.0); Hematocrit 33.7 % (41.0-53.0); Hemoglobin 11.1 g/dL (13.5-17.5); Lymphocytes # (auto) 0.9 10 ^3/uL (0.4-5.4); Lymphocytes % (auto) 4.2 % (10.0-50.0); Mean Corpuscular Hemoglobin 31.6 pg (28.0-32.0); Mean Corpuscular Volume 95.9 fL (80.0-100.0); Monocytes % (auto) 4.9 % (0.0-12.0); Neutrophils # (auto) 18.1 10 ^3/uL (1.6-8.6); Neutrophils % (auto) 90.4 % (37.0-80.0); Platelet Count (auto) 248 10^3/uL (140-450); Red Blood Cells 3.51 10^6/uL (4.5-5.90); Red Cell Distribution Width 13.2 % (11.8-14.3); White Blood Cell 20.1 10^3/uL (4.4-10.8)
--- NOTE | 2024-08-13 05:39 | DVH ---
EXAM: XR Chest, 1 View CLINICAL INDICATION: intubation TECHNIQUE: Frontal view of the chest. COMPARISON: XY CHEST XRAY 1 VIEW on DOS: 08/12/24 FINDINGS: LUNGS AND PLEURAL SPACES: Stable interstitial opacity. HEART: Unremarkable. No cardiomegaly. MEDIASTINUM: Unremarkable. Normal mediastinal contour. BONES/JOINTS: Unremarkable. No acute fracture. TUBES, LINES AND DEVICES: Right internal jugular central venous catheter tip in the superior vena c elena. The endotracheal tube (ETT) is in satisfactory position. Enteric tube tip cannot be seen but i s below the diaphragm. Left internal jugular central venous catheter tip in the superior vena cava. Left-sided Mediport with the distal tip in the SVC. No pneumothorax. OTHER FINDINGS: . . . . . IMPRESSION: No significant change from the prior exam.
[2024-08-13 07:17] LABS: Base Excess 3.2 mmol/L (-2.0-3.0)
[2024-08-13] MEDS: TICAGRELOR 90 MG TAB PO SCH (07:53)
[2024-08-13] MEDS ORDERED: DEXTROSE (50%) 50ML SYRG IV PRN (09:00)
[2024-08-13] MEDS: ASPirin 81 mg TAB PO SCH (09:23)
--- NOTE | 2024-08-13 11:43 | DVHPN2 ---
Progress Note Date Seen: Aug 13, 2024 Medical Necessity Reason Pt with a Central, PICC or Fol: No Subjective Review of Systems: RESPIRATORY:Abnormal Other Systems: Patient seen and examined by myself today in follow-up Objective vital signs Vital Sign Date Time Temp Pulse Resp B/P (MAP) Pulse Ox O2 Delivery O2 Flow Rate FiO2 08/13/24 11:17 88 18 107/80 (89) 100 30 08/13/24 10:00 Mechanical Ventilator+ 08/13/24 04:15 98.5 98.5 Total Intake and Output 08/12/24 08/12/24 08/13/24 15:00 23:00 07:00 Intake Total 458.51 ml 1163.34 ml Output Total 700 ml Balance 458.51 ml 463.34 ml medications Current Medications Medications Dose Ordered Sig/Clay Route Start Time Stop Time Status Last Admin Dose Admin Midazolam HCl 50 ml @ 1 mls/hr Q24H IV 08/12/24 14:45 08/13/24 07:53 Propofol 100 ml @ 2.19 mls/hr Q24H IV 08/12/24 14:45 08/13/24 09:58 Epinephrine HCl 250 ml @ 7.5 mls/hr Q24H IV 08/12/24 14:45 Norepinephrine Bitartrate 250 ml @ 3.75 mls/hr Q24H IV 08/12/24 14:45 08/12/24 14:42 Ticagrelor 90 mg BID PO 08/13/24 07:30 08/13/24 07:53 Aspirin 81 mg DAILY PO 08/13/24 10:00 08/13/24 09:23 Atorvastatin Calcium 80 mg DAILY PO 08/12/24 22:00 08/13/24 09:23 Diagnostic Test (Pha) 1 strip Q6HR 08/13/24 12:00 Insulin Human Regular Q6HR SC 08/13/24 12:00 Dextrose 50 ml UD PRN IV 08/13/24 09:00 Examination: LUNGS:Normal, CVS:Normal, MSK:Abnormal laboratory and microbiology Laboratory Tests 08/13/24 03:30 Test 08/13/24 03:30 Range/Units Serum Glucose 159 #H 74-106 mg/dL Problem List/Assessment/Plan Problem List/Assessment/Plan ESRD on HD Acute respiratory failure, intubated on ventilator Status post cardiac arrest Acute VT status post PTCA/PCI 6/2 DM type II Hyperglycemia Septic shock Anemia of CKD, we will compensated REC: Hemodialysis tomorrow Epogen 2000 subQ 3 times weekly Strict I&Os IV Abx Insulin SS IV pressors for BP support Cardiology on board Will continue to follow Plan discussed with: Spouse, Other (Nurse) My Orders My Orders Orders - YANNA GARCIA MD Procedure Category Date Status Time Hemodialysis Orders ORDERS 08/14/24 Transmitted 07:00 Dialysis Nursing KAY 08/14/24 In Process Message 07:00 Heparin Sodium PHA 08/14/24 In Process (Porcine) 07:00 Sodium Chloride 0.9% PHA 08/14/24 In Process 07:00 Document Fluid Input KAY 08/14/24 In Process And Outpu 07:00 Dietary Evaluation Review Comments: 1. Pt needs a high protein lower calorie formula d/t Propofol fusiion. Recommend Vital High protein TF @50ml/hr, providing 105 g Protein, 1200kcal. meeting his protein needs @96%, energy needs @95% after adding Propofol@9.7ml/hr for 24 hours. 2. TPN perpharmacy if EN not tolerated. Expected Outcomes/Goals: Reassess needs when extubated YANNA GARCIA MD Aug 13, 2024 11:43
[2024-08-13] MEDS: InsuLIN REG 1unit/0.01ml Soln (100units/ml) SC SCH (11:44)
[2024-08-13] MEDS: ACCU-CHEK COMFORT CURVE STRIP VI SCH (11:44)
[2024-08-13] MEDS ORDERED: VANCOMYCIN PER PHARMACY 0 MG IV SCH (12:00)
--- NOTE | 2024-08-13 12:24 | DVHPN2 ---
Progress Note Date Seen: Aug 13, 2024 Medical Necessity Reason Pt with a Central, PICC or Fol: No Subjective Other Systems: intubated sedated seen with RN spoke to on phone Objective vital signs Vital Sign Date Time Temp Pulse Resp B/P (MAP) Pulse Ox O2 Delivery O2 Flow Rate FiO2 08/13/24 11:45 87 17 114/80 (91) 100 08/13/24 11:17 30 08/13/24 10:00 Mechanical Ventilator+ 08/13/24 08:00 98.4 98.4 Total Intake and Output 08/12/24 08/12/24 08/13/24 15:00 23:00 07:00 Intake Total 458.51 ml 1220.96 ml Output Total 700 ml Balance 458.51 ml 520.96 ml medications Current Medications Medications Dose Ordered Sig/Clay Route Start Time Stop Time Status Last Admin Dose Admin Midazolam HCl 50 ml @ 1 mls/hr Q24H IV 08/12/24 14:45 08/13/24 12:05 12 MLS/HR Propofol 100 ml @ 2.19 mls/hr Q24H IV 08/12/24 14:45 08/13/24 09:58 19.71 MLS/HR Epinephrine HCl 250 ml @ 7.5 mls/hr Q24H IV 08/12/24 14:45 Norepinephrine Bitartrate 250 ml @ 3.75 mls/hr Q24H IV 08/12/24 14:45 08/12/24 14:42 3.75 MLS/HR Ticagrelor 90 mg BID PO 08/13/24 07:30 08/13/24 07:53 90 MG Aspirin 81 mg DAILY PO 08/13/24 10:00 08/13/24 09:23 81 MG Atorvastatin Calcium 80 mg DAILY PO 08/12/24 22:00 08/13/24 09:23 80 MG Diagnostic Test (Pha) 1 strip Q6HR 08/13/24 12:00 08/13/24 11:44 1 STRIP Insulin Human Regular Q6HR SC 08/13/24 12:00 Dextrose 50 ml UD PRN IV 08/13/24 09:00 Vancomycin HCl 0 ml @ 0 mls/hr UD IV 08/13/24 12:00 UNV Examination: GENERAL:Abnormal, HEENT:Abnormal, LUNGS:Abnormal, CVS:Abnormal, ABDOMEN:Abnormal laboratory and microbiology Laboratory Tests 08/13/24 03:30 Test 08/13/24 03:30 Range/Units Serum Glucose 159 #H 74-106 mg/dL Microbiology Date/Time Source Procedure Growth Status 08/12/24 14:20 Blood Blood Culture - Preliminary Resulted Problem List/Assessment/Plan Problem List/Assessment/Plan cardiac arrest resp failure cad s/p pci nstemi esrd on hd pad hypotension cont dapt cont statin wean off pressors daily awakening, abg improved HD per renal eventual PAD assessment when more stable for chronic condition critial care time spent 40 mins Plan discussed with: Patient My Orders My Orders Orders - CYNDIE BACON MD Procedure Category Date Status Time Electrocardigram EKG 08/12/24 Logged 15:45 Electrocardigram EKG 08/12/24 Logged 18:45 Cl Left Heart Cath CL 08/12/24 Taken 17:23 Ticagrelor (Brilinta) PHA 08/13/24 In Process 07:30 Aspirin Tablet PHA 08/13/24 In Process 10:00 Atorvastatin (Lipitor) PHA 08/12/24 In Process 22:00 Admit ADMIT 08/12/24 Transmitted 19:21 * Hospitalist Consult CONS 08/12/24 Transmitted Communication Order ORDERS 08/12/24 Transmitted 19:21 Mrsa Screen JAVIER 08/12/24 In Process 20:15 Pharmacy KAY 08/13/24 In Process Clarification: 04:00 Ventilator Orders RT 08/12/24 Transmitted 19:30 * Wound Consult CONS 08/13/24 Transmitted * Dietary Consult CONS 08/13/24 Transmitted 07:20 *Consult CONS 08/13/24 Transmitted / 07:50 Dietary Evaluation Review Comments: 1. Pt needs a high protein lower calorie formula d/t Propofol fusiion. Recommend Vital High protein TF @50ml/hr, providing 105 g Protein, 1200kcal. meeting his protein needs @96%, energy needs @95% after adding Propofol@9.7ml/hr for 24 hours. 2. TPN perpharmacy if EN not tolerated. Expected Outcomes/Goals: Reassess needs when extubated Date of Service: Aug 13, 2024 Billing Provider: CYNDIE BACON MD Common Visit Codes: NOT BILLABLE CYNDIE BACON MD Aug 13, 2024 12:24
[2024-08-13] MEDS ORDERED: AMIODARONE HCL (50 MG/ ML) 3 ML VIAL IV ONE (12:30)
--- NOTE | 2024-08-13 13:16 | ECG ---
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
--- NOTE | 2024-08-13 14:43 | DVHHP2 ---
Review of Systems Allergies: Coded Allergies: Ondansetron (Verified Allergy, Intermediate, Itching, 01/08/23) Metoclopramide (Unverified Allergy, Unknown, 12/19/16) Morphine (Unverified Allergy, Unknown, 12/19/16) Prochlorperazine (Unverified Allergy, Unknown, 12/19/16) Medications Current Medications Medications Dose Ordered Sig/Clay Route Start Time Stop Time Status Last Admin Dose Admin Midazolam HCl 50 ml @ 1 mls/hr Q24H IV 08/12/24 14:45 08/13/24 12:05 12 MLS/HR Propofol 100 ml @ 2.19 mls/hr Q24H IV 08/12/24 14:45 08/13/24 14:27 21.9 MLS/HR Epinephrine HCl 250 ml @ 7.5 mls/hr Q24H IV 08/12/24 14:45 Norepinephrine Bitartrate 250 ml @ 3.75 mls/hr Q24H IV 08/12/24 14:45 08/12/24 14:42 3.75 MLS/HR Ticagrelor 90 mg BID PO 08/13/24 07:30 08/13/24 07:53 90 MG Aspirin 81 mg DAILY PO 08/13/24 10:00 08/13/24 09:23 81 MG Atorvastatin Calcium 80 mg DAILY PO 08/12/24 22:00 08/13/24 09:23 80 MG Diagnostic Test (Pha) 1 strip Q6HR 08/13/24 12:00 08/13/24 11:44 1 STRIP Insulin Human Regular Q6HR SC 08/13/24 12:00 Dextrose 50 ml UD PRN IV 08/13/24 09:00 Vancomycin HCl 0 ml @ 0 mls/hr UD IV 08/13/24 12:00 Exam Vital Signs Vital Signs Date Time Temp Pulse Resp B/P (MAP) Pulse Ox O2 Delivery O2 Flow Rate FiO2 08/13/24 14:15 83 17 106/71 (83) 100 08/13/24 14:00 30 08/13/24 14:00 Mechanical Ventilator+ 08/13/24 12:00 98.6 98.6 Labs/Xrays Labs Test 08/13/24 11:41 08/13/24 06:55 08/13/24 03:30 6/2/25 19:40 Range/Units POC Glucose 150 H 70-106 mg/dl Blood Gas Specimen Type Arterial Blood Gas Sample Site Right radial Blood Gas Patient Temperature 37.0 Arterial Blood Date Drawn [id number] Arterial Blood pH 7.443 7.350-7.450 Arterial Blood Partial Pressure CO2 41.2 35.0-48.0 mmHg Arterial Blood Partial Pressure O2 60.9 L 83.0-108.0 mmHg Arterial Blood HCO3 27.5 21.0-28.0 mmol/L Arterial Blood Oxygen Saturation 90.3 L 94.0-98.0 % Arterial Blood Base Excess 3.2 H -2.0-3.0 mmol/L Arterial Blood Oxyhemoglobin 89.8 L 94.0-98.0 % Arterial Blood Carboxyhemoglobin 0.6 0.5-1.5 % Arterial Blood Methemoglobin 0.0 0.0-1.5 % Obey Test Modified Blood Gas Total Hemoglobin 11.50 L 13.5-17.5 g/dL Blood Gas Set Respiration Rate 16.0 Blood Gas Modality Vent - ac FiO2 % 30.0 Blood Gas Tidal Volume 500.0 Blood Gas PEEP or CPAP 5.0 White Blood Count 20.1 #H 4.4-10.8 10^3/uL Red Blood Count 3.51 L 4.5-5.90 10^6/uL Hemoglobin 11.1 L 13.5-17.5 g/dL Hematocrit 33.7 L 41.0-53.0 % Mean Corpuscular Volume 95.9 # 80.0-100.0 fL Mean Corpuscular Hemoglobin 31.6 28.0-32.0 pg Mean Corpuscular Hemoglobin Concent 33.0 32.0-36.0 g/dL Red Cell Distribution Width 13.2 11.8-14.3 % Platelet Count 248 140-450 10^3/uL Mean Platelet Volume 8.5 6.9-10.8 fL Neutrophils (%) (Auto) 90.4 H 37.0-80.0 % Lymphocytes (%) (Auto) 4.2 L 10.0-50.0 % Monocytes (%) (Auto) 4.9 0.0-12.0 % Eosinophils (%) (Auto) 0.2 0.0-7.0 % Basophils (%) (Auto) 0.3 0.0-2.0 % Neutrophils # (Auto) 18.1 H 1.6-8.6 10 ^3/uL Lymphocytes # (Auto) 0.9 0.4-5.4 10 ^3/uL Monocytes # (Auto) 1.0 0-1.3 10 ^3/uL Eosinophils # (Auto) 0 0-0.8 10 ^3/uL Basophils # (Auto) 0.1 0-0.2 10 ^3/uL Nucleated Red Blood Cells 0.0 % Sodium Level 143 136-145 mmol/L Potassium Level 3.8 3.5-5.1 mmol/L Chloride Level 101 98-107 mmol/L Carbon Dioxide Level 28 20-31 mmol/L Anion Gap 14 5-15 Blood Urea Nitrogen 26 #H 9-23 mg/dL Creatinine 5.18 H 0.700-1.30 mg/dL Glomerular Filtration Rate Calc 13 >90 mL/min BUN/Creatinine Ratio 5.0 L 10.0-20.0 Serum Glucose 159 #H 74-106 mg/dL Calcium Level 7.9 L 8.7-10.4 mg/dL Total Bilirubin 0.2 0.2-1.0 mg/dL Aspartate Amino Transferase (AST) 433 H 13-40 U/L Alanine Aminotransferase (ALT) 255 H 7-40 U/L Alkaline Phosphatase 83 46-116 U/L Total Protein 6.5 5.7-8.2 g/dL Albumin 3.8 3.2-4.8 g/dL Urine Color Light-brown Yellow Urine Clarity Turbid H Clear Urine pH 6.0 5.0-9.0 Urine Specific [place] 1.015 1.001-1.035 Urine Protein 2+ H Negative Urine Ketones Negative Negative Urine Blood Negative Negative /uL Urine Nitrite Negative Negative Urine Bilirubin Negative Negative Urine Urobilinogen Normal Negative mg/dL Urine Leukocyte Esterase Negative Negative /uL Urine RBC <1 0 - 3 /hpf Urine Microscopic WBC < 1 0-3 /HPF Urine Squamous Epithelial Cells Mod <5 /hpf Urine Bacteria None seen None Seen /hpf Urine Glucose Normal Normal mg/dL Test 08/12/24 17:27 08/12/24 15:46 08/12/24 14:20 Range/Units Lactic Acid Level 3.6 *H 0.4-2.0 mmol/L Troponin I High Sensitivity 31762 *H </=54 ng/L Blood Gas Critical Value Read Back Yes Blood Gas Notified Whom janessa Head md Blood Gas Notified Time [id number] Blood Gas Notified By rebeka Freire rrt Differential Total Cells Counted 100.0 100 Neutrophils % (Manual) 40 37.0-80.0 Band Neutrophils % (Manual) 6 Lymphocytes % (Manual) 41 10.0-50.0 Monocytes % (Manual) 12 0-12 Eosinophils % (Manual) 0 0-7 Basophils % (Manual) 0 0.0-2.0 Metamyelocytes % (manual) 1 Myelocytes % (Manual) 0 Promyelocytes % (Manual) 0 Blast Cells % (Manual) 0 Reactive Lymphocytes 0 Platelet Estimate Adequate Anisocytosis (manual) Slight Macrocytosis Slight [place] Cells Few Prothrombin Time 12.1 H 9.3-11.8 sec Prothrombin Time INR 1.16 H 0.9-1.15 Activated Partial Thromboplast Time 39.3 H 24.5-34.5 SEC Uric Acid 4.3 3.7-9.2 mg/dL Phosphorus Level 5.6 H 2.4-5.1 mg/dL Magnesium Level 2.2 1.6-2.6 mg/dL B-Type Natriuretic Peptide 52.46 0-100 pg/mL Amylase Level 94 30-118 U/L Microbiology Date/Time Source Procedure Growth Status 08/12/24 14:28 Sputum Gram Stain - Final Resulted 08/12/24 14:28 Sputum Respiratory Culture - Preliminary Resulted 08/12/24 14:20 Blood Blood Culture - Preliminary Resulted Assessment/Plan Assessment/Plan see dictated note Plan discussed with: Other (rn) My Orders Orders - MAUREEN DOUGHERTY MD Procedure Category Date Status Time Abg W/ Co-Ox RT 08/13/24 Logged 06:00 Vancomycin Per PHA 08/13/24 In Process Pharmacy 12:00 Date of Service: Aug 13, 2024 Billing Provider: MAUREEN DOUGHERTY MD Common Visit Codes: 35784-[id number] CARE 30-74 MIN, [id number] CARE-EACH +30MIN MAUREEN DOUGHERTY MD Aug 13, 2024 14:43
[2024-08-13] MEDS: DEXMEDETOMIDINE HCL IN D5W 100 ML IV SCH (14:45)
[2024-08-13] MEDS: VANCOMYCIN 1.5GM/300ML 300 ML IV ONE (15:00)
[2024-08-13] MEDS: PANTOPRAZOLE 40 MG/10 ML VIAL INJ IV ONE (15:46)
--- NOTE | 2024-08-13 15:50 | DVHHP ---
ADMIT DATE: 08/12/2024 HISTORY OF PRESENT ILLNESS: The patient is a 49-year-old gentleman, who came to the Emergency Room from the dialysis center where he was noted to be increasingly altered. The patient subsequently came to the Emergency Room where he was intubated by the Emergency Room doctor. The patient subsequently, however, went into cardiorespiratory arrest and had CPR performed. The patient was noted to have no pulse at that time. The patient is currently intubated and mechanically ventilated. No other history is currently available. PAST MEDICAL HISTORY: Significant for end-stage renal disease, on hemodialysis as well as history of hypertension, GERD. MEDICATIONS: Include oxycodone, Protonix. ALLERGIES: REGLAN, MORPHINE, ZOFRAN, AND . SOCIAL HISTORY: Lives with family. Rest is unknown. FAMILY HISTORY: Negative. PHYSICAL EXAMINATION: GENERAL: The patient is intubated, mechanically ventilated. VITAL SIGNS: Temperature of 98.6, pulse of 83 per minute, blood pressure 106/71. SHEENT: Unremarkable. Pupils are reactive to light. There is no pedal edema. LUNGS: Equal bilaterally. CARDIOVASCULAR: S1 and S2 is regular. ABDOMEN: Soft. There is no organomegaly. NEUROLOGIC: Intubated and sedated. MUSCULOSKELETAL: The patient has bilateral lower extremity midfoot amputations. ASSESSMENT AND PLAN: * Acute respiratory failure for which the patient will continue on assist control ventilation. * Shock, questionably septic, questionably cardiac. The patient will be placed on broad-spectrum antibiotics. His blood cultures are currently positive. * Acute myocardial infarction, status post coronary angiography with stenting of the proximal circumflex. * Transaminitis. * End-stage renal disease, on hemodialysis. * Status post CPR. * To rule out hypoxic encephalopathy. * Peripheral vascular disease with bilateral midfoot amputations. Critical care time spent in review of information and the patient exam excluding procedures was 81 minutes. MD NADINE Brody/BEV/PRESLEY TID: [id number] RECEIPT: [id number]
[2024-08-13] MEDS: CEFEPIME 1GM/ 50ML 50 ML IV ONE (16:34)
[2024-08-13] MEDS: ENOXAPARIN SOD 30 MG/0.3 ML SYRINGE SC ONE (16:37)
[2024-08-13] MEDS ORDERED: CEFEPIME 1GM/ 50ML 50 ML IV SCH (18:00)
[2024-08-13] MEDS: hydrALAZINE HCL 20 MG/ML VL IV PRN (21:16)
[2024-08-14] VITALS (109 sets, daily range): BP systolic 81–212; BP diastolic 53–105; PULSE 68–89; RESP 8–29; TEMP 97.8–98.8; O2SAT 99–100
[2024-08-14] MEDS: LABETALOL HCL 20 MG/4 ML VL IV ONE ×2 (00:32)
--- NOTE | 2024-08-14 03:16 | DVH ---
CHEST RADIOGRAPH Indication: resp failure Technique: Single frontal view of the chest was obtained COMPARISON: XY CHEST PORTABLE on DOS: 08/13/24, XY CHEST XRAY 1 VIEW on DOS: 08/12/24 FINDINGS: Lines and Tubes: Unchanged. Lungs: Clear Pleura: No effusion. No pneumothorax. Cardiomediastinal contours: Unremarkable Bones: Unremarkable IMPRESSION: 1. No acute disease. 2. Lines and tubes unchanged.
[2024-08-14 03:44] LABS: Basophils # (auto) 0.1 10 ^3/uL (0-0.2); Basophils % (auto) 0.5 % (0.0-2.0); Eosinophils # (auto) 0.1 10 ^3/uL (0-0.8); Eosinophils % (auto) 0.7 % (0.0-7.0); Hematocrit 30.4 % (41.0-53.0); Lymphocytes # (auto) 0.9 10 ^3/uL (0.4-5.4); Lymphocytes % (auto) 7.5 % (10.0-50.0); Mean Corpuscular Hemoglobin 31.9 pg (28.0-32.0); Mean Corpuscular Volume 96.8 fL (80.0-100.0); Monocytes # (auto) 0.7 10 ^3/uL (0-1.3); Neutrophils # (auto) 10.5 10 ^3/uL (1.6-8.6); Neutrophils % (auto) 85.3 % (37.0-80.0); Platelet Count (auto) 157 10^3/uL (140-450); Red Blood Cells 3.15 10^6/uL (4.5-5.90); Red Cell Distribution Width 13.3 % (11.8-14.3); White Blood Cell 12.3 10^3/uL (4.4-10.8)
[2024-08-14 03:47] LABS: Albumin 3.7 g/dL (3.2-4.8); Alkaline Phosphatase 78 U/L (46-116); Anion Gap 12 (5-15); BUN/Creatinine Ratio 5.5 (10.0-20.0); Carbon Dioxide 26 mmol/L (20-31); Chloride 103 mmol/L (98-107); Sodium 141 mmol/L (136-145); Total Protein 6.5 g/dL (5.7-8.2)
[2024-08-14 03:48] LABS: Bilirubin, Total 0.3 mg/dL (0.2-1.0)
[2024-08-14 04:13] LABS: Alanine Aminotransferase 124 U/L (7-40); Aspartate Aminotransferase 124 U/L (13-40); Blood Urea Nitrogen 32 mg/dL (9-23); Calcium 7.7 mg/dL (8.7-10.4); Glucose 144 mg/dL (74-106)
[2024-08-14] MEDS: SODIUM CHL 0.9% 1000 ML BAG XX ONE (07:00)
[2024-08-14 07:21] LABS: Base Excess -2.8 mmol/L (-2.0-3.0)
--- NOTE | 2024-08-14 07:29 | ECG ---
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
[2024-08-14] MEDS: ALBUMIN 25% 100 ML IV SCH (09:15)
[2024-08-14] MEDS: ENOXAPARIN SOD 30 MG/0.3 ML SYRINGE SC SCH (10:00)
--- NOTE | 2024-08-14 11:01 | DVHPN2 ---
Progress Note Date Seen: Aug 14, 2024 Medical Necessity Reason Pt with a Central, PICC or Fol: No Subjective Review of Systems: RESPIRATORY:Abnormal Other Systems: Patient seen and examined by myself today in follow-up, patient remained intubated on ventilator Patient examined hemodialysis, blood pressure stable Objective vital signs Vital Sign Date Time Temp Pulse Resp B/P (MAP) Pulse Ox O2 Delivery O2 Flow Rate FiO2 08/14/24 10:00 30 08/14/24 10:00 16 100 Mechanical Ventilator+ 08/14/24 10:00 72 08/14/24 09:40 109/79 (89) 08/14/24 08:00 98.0 98.0 Total Intake and Output 08/13/24 08/13/24 08/14/24 15:00 23:00 07:00 Intake Total 419.69 ml 448.72 ml 297.42 ml Output Total 225 ml 500 ml Balance 419.69 ml 223.72 ml -202.58 ml medications Current Medications Medications Dose Ordered Sig/Clay Route Start Time Stop Time Status Last Admin Dose Admin Midazolam HCl 50 ml @ 1 mls/hr Q24H IV 08/12/24 14:45 08/13/24 19:40 11 MLS/HR Propofol 100 ml @ 2.19 mls/hr Q24H IV 08/12/24 14:45 08/14/24 08:44 15.33 MLS/HR Epinephrine HCl 250 ml @ 7.5 mls/hr Q24H IV 08/12/24 14:45 Norepinephrine Bitartrate 250 ml @ 3.75 mls/hr Q24H IV 08/12/24 14:45 08/14/24 08:44 3.75 MLS/HR Ticagrelor 90 mg BID PO 08/13/24 07:30 08/13/24 20:20 90 MG Aspirin 81 mg DAILY PO 08/13/24 10:00 08/13/24 09:23 81 MG Atorvastatin Calcium 80 mg DAILY PO 08/12/24 22:00 08/13/24 09:23 80 MG Diagnostic Test (Pha) 1 strip Q6HR 08/13/24 12:00 08/14/24 05:46 1 STRIP Insulin Human Regular Q6HR SC 08/13/24 12:00 Dextrose 50 ml UD PRN IV 08/13/24 09:00 Vancomycin HCl 0 ml @ 0 mls/hr UD IV 08/13/24 12:00 Pantoprazole Sodium 40 mg DAILY IV 08/14/24 10:00 Enoxaparin Sodium 30 mg DAILY SC 08/14/24 10:00 Cefepime HCl 50 ml @ 12.5 mls/hr DAILY@1800 IV 08/14/24 18:00 Hydralazine HCl 10 mg Q6HP PRN IV 08/13/24 20:45 08/14/24 06:20 10 MG Albumin Human 100 ml @ 100 mls/hr Q1HR IV 08/14/24 09:00 08/14/24 10:59 08/14/24 10:07 100 MLS/HR Examination: LUNGS:Normal, CVS:Normal, MSK:Normal laboratory and microbiology Laboratory Tests 08/14/24 03:00 Test 08/14/24 03:00 Range/Units Serum Glucose 144 H 74-106 mg/dL Microbiology Date/Time Source Procedure Growth Status 08/12/24 20:15 Nose MRSA Screen - Final Complete 08/12/24 14:28 Sputum Gram Stain - Final Resulted 08/12/24 14:28 Sputum Respiratory Culture - Preliminary Resulted 08/12/24 14:20 Blood Blood Culture - Preliminary Resulted Problem List/Assessment/Plan Problem List/Assessment/Plan ESRD on HD Acute respiratory failure, intubated on ventilator Status post cardiac arrest Acute LA status post PTCA/PCI 08/12 DM type II Hyperglycemia Septic shock Anemia of CKD, we will compensated REC: Continue with UF 1-2 L as tolerated Epogen 2000 subQ 3 times weekly Strict I&Os IV Abx Insulin SS IV pressors for BP support Cardiology on board Will continue to follow Plan discussed with: Other (Nurse) My Orders My Orders Orders - YANNA GARCIA MD Procedure Category Date Status Time Hepatitis B Surface LAB 08/14/24 In Process Antigen 09:25 Dietary Evaluation Review Comments: 1. Pt needs a high protein lower calorie formula d/t Propofol fusiion. Recommend Vital High protein TF @50ml/hr, providing 105 g Protein, 1200kcal. meeting his protein needs @96%, energy needs @95% after adding Propofol@9.7ml/hr for 24 hours. 2. TPN perpharmacy if EN not tolerated. Expected Outcomes/Goals: Reassess needs when extubated YANNA GARCIA MD Aug 14, 2024 11:01
[2024-08-14] MEDS: PANTOPRAZOLE 40 MG/10 ML VIAL INJ IV SCH (11:09)
--- NOTE | 2024-08-14 13:11 | DVHPN2 ---
Progress Note Date Seen: Aug 14, 2024 Medical Necessity Reason Pt with a Central, PICC or Fol: No Subjective Other Systems: spoke to [place] yesterday 6/3 RN for possible further braing imaging based off ct once pt stable Objective vital signs Vital Sign Date Time Temp Pulse Resp B/P (MAP) Pulse Ox O2 Delivery O2 Flow Rate FiO2 08/14/24 13:00 71 15 94/62 (73) 100 08/14/24 12:00 30 08/14/24 12:00 Mechanical Ventilator+ 08/14/24 11:40 98.8 98.8 Total Intake and Output 08/13/24 08/13/24 08/14/24 15:00 23:00 07:00 Intake Total 419.69 ml 448.72 ml 297.42 ml Output Total 225 ml 500 ml Balance 419.69 ml 223.72 ml -202.58 ml medications Current Medications Medications Dose Ordered Sig/Clay Route Start Time Stop Time Status Last Admin Dose Admin Midazolam HCl 50 ml @ 1 mls/hr Q24H IV 08/12/24 14:45 08/13/24 19:40 11 MLS/HR Propofol 100 ml @ 2.19 mls/hr Q24H IV 08/12/24 14:45 08/14/24 08:44 15.33 MLS/HR Epinephrine HCl 250 ml @ 7.5 mls/hr Q24H IV 08/12/24 14:45 Norepinephrine Bitartrate 250 ml @ 3.75 mls/hr Q24H IV 08/12/24 14:45 08/14/24 08:44 3.75 MLS/HR Ticagrelor 90 mg BID PO 08/13/24 07:30 08/14/24 11:09 90 MG Aspirin 81 mg DAILY PO 08/13/24 10:00 08/14/24 11:10 81 MG Atorvastatin Calcium 80 mg DAILY PO 08/12/24 22:00 08/13/24 09:23 80 MG Diagnostic Test (Pha) 1 strip Q6HR 08/13/24 12:00 08/14/24 11:10 1 STRIP Insulin Human Regular Q6HR SC 08/13/24 12:00 Dextrose 50 ml UD PRN IV 08/13/24 09:00 Vancomycin HCl 0 ml @ 0 mls/hr UD IV 08/13/24 12:00 Pantoprazole Sodium 40 mg DAILY IV 08/14/24 10:00 08/14/24 11:09 40 MG Enoxaparin Sodium 30 mg DAILY SC 08/14/24 10:00 Cefepime HCl 50 ml @ 12.5 mls/hr DAILY@1800 IV 08/14/24 18:00 Hydralazine HCl 10 mg Q6HP PRN IV 08/13/24 20:45 08/14/24 06:20 10 MG Examination: GENERAL:Abnormal, HEENT:Abnormal, LUNGS:Abnormal, CVS:Abnormal, ABDOMEN:Abnormal laboratory and microbiology Laboratory Tests 08/14/24 03:00 Test 08/14/24 03:00 Range/Units Serum Glucose 144 H 74-106 mg/dL Microbiology Date/Time Source Procedure Growth Status 08/12/24 20:15 Nose MRSA Screen - Final Complete 08/12/24 14:28 Sputum Gram Stain - Final Resulted 08/12/24 14:28 Sputum Respiratory Culture - Preliminary Resulted 08/12/24 14:20 Blood Blood Culture - Preliminary Resulted Problem List/Assessment/Plan Problem List/Assessment/Plan cardiac arrest resp failure cad s/p pci nstemi esrd on hd pad hypotension cont dapt cont statin wean off pressors daily awakening, abg improved HD per renal eventual PAD assessment when more stable for chronic condition abnormal head ct-fu per primary group critial care time spent 40 mins Plan discussed with: Other (n) Dietary Evaluation Review Comments: 1. Pt needs a high protein lower calorie formula d/t Propofol fusiion. Recommend Vital High protein TF @50ml/hr, providing 105 g Protein, 1200kcal. meeting his protein needs @96%, energy needs @95% after adding Propofol@9.7ml/hr for 24 hours. 2. TPN perpharmacy if EN not tolerated. Expected Outcomes/Goals: Reassess needs when extubated Date of Service: Aug 14, 2024 Billing Provider: CYNDIE BACON MD Common Visit Codes: NOT BILLABLE CYNDIE BACON MD Aug 14, 2024 13:11
[2024-08-14] MEDS: VANCOMYCIN 1GM/200ML PM 200 ML IV ONE (15:29)
--- NOTE | 2024-08-14 16:00 | DVHPN2 ---
Progress Note Date Seen: Aug 14, 2024 Medical Necessity Reason Pt with a Central, PICC or Fol: No Subjective Patient reports: No new complaints Review of Systems: HEENT:Normal, CVS:Normal, RESPIRATORY:Normal, GI:Normal, :Normal, MSK:Normal, NEURO:Normal Objective vital signs Vital Sign Date Time Temp Pulse Resp B/P (MAP) Pulse Ox O2 Delivery O2 Flow Rate FiO2 08/14/24 15:49 77 21 141/89 (106) 99 30 08/14/24 14:00 Mechanical Ventilator+ 08/14/24 11:40 98.8 98.8 Total Intake and Output 08/13/24 08/13/24 08/14/24 14:59 22:59 06:59 Intake Total 423.00 ml 460.29 ml 316.66 ml Output Total 225 ml 500 ml Balance 423.00 ml 235.29 ml -183.34 ml medications Current Medications Medications Dose Ordered Sig/Clay Route Start Time Stop Time Status Last Admin Dose Admin Midazolam HCl 50 ml @ 1 mls/hr Q24H IV 08/12/24 14:45 08/13/24 19:40 11 MLS/HR Propofol 100 ml @ 2.19 mls/hr Q24H IV 08/12/24 14:45 08/14/24 08:44 15.33 MLS/HR Epinephrine HCl 250 ml @ 7.5 mls/hr Q24H IV 08/12/24 14:45 Norepinephrine Bitartrate 250 ml @ 3.75 mls/hr Q24H IV 08/12/24 14:45 08/14/24 08:44 3.75 MLS/HR Ticagrelor 90 mg BID PO 08/13/24 07:30 08/14/24 11:09 90 MG Aspirin 81 mg DAILY PO 08/13/24 10:00 08/14/24 11:10 81 MG Atorvastatin Calcium 80 mg DAILY PO 08/12/24 22:00 08/13/24 09:23 80 MG Diagnostic Test (Pha) 1 strip Q6HR 08/13/24 12:00 08/14/24 11:10 1 STRIP Insulin Human Regular Q6HR SC 08/13/24 12:00 Dextrose 50 ml UD PRN IV 08/13/24 09:00 Vancomycin HCl 0 ml @ 0 mls/hr UD IV 08/13/24 12:00 Pantoprazole Sodium 40 mg DAILY IV 08/14/24 10:00 08/14/24 11:09 40 MG Enoxaparin Sodium 30 mg DAILY SC 08/14/24 10:00 Cefepime HCl 50 ml @ 12.5 mls/hr DAILY@1800 IV 08/14/24 18:00 Hydralazine HCl 10 mg Q6HP PRN IV 08/13/24 20:45 08/14/24 06:20 10 MG Examination: GENERAL:Normal, HEENT:Normal, NECK:Normal, LUNGS:Normal, LUNGS:Abnormal (intubated), CVS:Normal, ABDOMEN:Normal, MSK:Normal, MSK:Abnormal (bilateral toe amputations), SKIN:Normal, NEURO:Normal, :Normal laboratory and microbiology Laboratory Tests 08/14/24 03:00 Test 08/14/24 03:00 Range/Units Serum Glucose 144 H 74-106 mg/dL Microbiology Date/Time Source Procedure Growth Status 08/12/24 20:15 Nose MRSA Screen - Final Complete 08/12/24 14:28 Sputum Gram Stain - Final Resulted 08/12/24 14:28 Sputum Respiratory Culture - Preliminary Resulted 08/12/24 14:20 Blood Blood Culture - Preliminary Resulted Problem List/Assessment/Plan Problem List/Assessment/Plan * Acute respiratory failure for which the patient will continue on assist control ventilation, cpap trial in am * Shock, questionably septic, questionably cardiac. The patient will be placed on broad-spectrum antibiotics. His blood cultures are currently positive, iv vanc * Acute myocardial infarction, status post coronary angiography with stenting of the proximal circumflex. * Transaminitis: monitor * End-stage renal disease, on hemodialysis. * Status post CPR. * To rule out hypoxic encephalopathy. * Peripheral vascular disease with bilateral midfoot amputations. Plan discussed with: Son My Orders My Orders Orders - MAUREEN DOUGHERTY MD Procedure Category Date Status Time Cefepime 1gm/ 50ml PHA 08/14/24 In Process (Maxipime 1gm/50ml) 18:00 Communication Order ORDERS 08/14/24 Transmitted 00:59 Cpap/Sed Vacation Med ORDERS 08/14/24 Transmitted Weaning 00:59 Pharmacy [facility] 08/14/24 In Process Clarification: 09:12 Vancomycin 1gm/200ml PHA 08/14/24 In Process Pm 15:00 Vancomycin,Random LAB 08/16/24 Verified 05:00 Vancomycin Per [facility]AY 08/14/24 In Process Pharmacy Protoc 14:13 Creatinine LAB 08/16/24 Verified 05:00 Cpap Trial For Am ORDERS 08/14/24 Verified 15:56 Complete Blood Count LAB 08/15/24 Verified 06:00 Comprehensive LAB 08/15/24 Verified Metabolic Panel 06:00 Chest Portable XY 08/15/24 Verified 06:00 Abg W/ Co-Ox RT 08/15/24 Verified 06:00 Blood Culture JAVIER 08/15/24 Verified 05:00 Dietary Evaluation Review Comments: 1. Pt needs a high protein lower calorie formula d/t Propofol fusiion. Recommend Vital High protein TF @50ml/hr, providing 105 g Protein, 1200kcal. meeting his protein needs @96%, energy needs @95% after adding Propofol@9.7ml/hr for 24 hours. 2. TPN perpharmacy if EN not tolerated. Expected Outcomes/Goals: Reassess needs when extubated Critical Care Time (mins): 48 (critical care time excluding procedures is 48 mins) Date of Service: Aug 14, 2024 Billing Provider: MAUREEN DOUGHERTY MD Common Visit Codes: [id number] CARE 30-74 MIN MAUREEN DOUGHERTY MD Aug 14, 2024 16:00
[2024-08-14] MEDS: CEFEPIME 1GM/ 50ML 50 ML IV SCH (17:32)
[2024-08-14] MEDS: HEPARIN SODIUM (PORCINE) 5000 UNITS/ML 1ML VIAL SC SCH (21:30)
[2024-08-15] VITALS (75 sets, daily range): BP systolic 110–205; BP diastolic 63–112; PULSE 71–96; RESP 12–29; TEMP 97.8–98.8; O2SAT 94–100
[2024-08-15 03:54] LABS: Basophils # (auto) 0.1 10 ^3/uL (0-0.2); Basophils % (auto) 0.7 % (0.0-2.0); Eosinophils # (auto) 0.3 10 ^3/uL (0-0.8); Eosinophils % (auto) 2.6 % (0.0-7.0); Hematocrit 28.5 % (41.0-53.0); Hemoglobin 9.5 g/dL (13.5-17.5); Lymphocytes # (auto) 0.7 10 ^3/uL (0.4-5.4); Lymphocytes % (auto) 5.5 % (10.0-50.0); Mean Corpuscular Hgb Conc. 33.3 g/dL (32.0-36.0); Mean Corpuscular Volume 96.1 fL (80.0-100.0); Monocytes # (auto) 0.7 10 ^3/uL (0-1.3); Monocytes % (auto) 5.6 % (0.0-12.0); Neutrophils # (auto) 10.7 10 ^3/uL (1.6-8.6); Neutrophils % (auto) 85.6 % (37.0-80.0); Platelet Count (auto) 164 10^3/uL (140-450); Red Blood Cells 2.96 10^6/uL (4.5-5.90); White Blood Cell 12.5 10^3/uL (4.4-10.8)
[2024-08-15 04:27] LABS: Albumin 4.4 g/dL (3.2-4.8); Alkaline Phosphatase 77 U/L (46-116); Anion Gap 16 (5-15); BUN/Creatinine Ratio 4.7 (10.0-20.0); Carbon Dioxide 24 mmol/L (20-31); Chloride 101 mmol/L (98-107); Potassium 4.1 mmol/L (3.5-5.1); Sodium 141 mmol/L (136-145); Total Protein 7.3 g/dL (5.7-8.2)
[2024-08-15 04:28] LABS: Bilirubin, Total 0.6 mg/dL (0.2-1.0)
[2024-08-15 04:42] LABS: Alanine Aminotransferase 70 U/L (7-40); Aspartate Aminotransferase 53 U/L (13-40); Blood Urea Nitrogen 26 mg/dL (9-23); Calcium 8.4 mg/dL (8.7-10.4); Glucose 136 mg/dL (74-106)
--- NOTE | 2024-08-15 05:39 | DVH ---
CHEST RADIOGRAPH Indication: resp fAILURE Technique: Single frontal view of the chest was obtained Comparison: XY CHEST PORTABLE on DOS: 08/14/24 FINDINGS: Lines and Tubes: The endotracheal tube terminates 6.7 cm above the choco. The enteric tube terminate s in the stomach. Right hemodialysis catheter terminates in the right atrium. Left central venous ca theter terminates in the superior vena cava. Lungs: The left apex is excluded from the field of view limiting evaluation. No focal consolidation. Pleura: No effusion. No pneumothorax. Cardiomediastinal contours: Unremarkable Bones: No acute osseous abnormality. IMPRESSION: 1. Stable position of the support lines and tubes. 2. No acute cardiopulmonary disease.
[2024-08-15] MEDS: LABETALOL HCL 20 MG/4 ML VL IV PRN (05:53)
[2024-08-15 06:54] LABS: Base Excess -2.9 mmol/L (-2.0-3.0)
--- NOTE | 2024-08-15 09:00 | DVHPN2 ---
Progress Note Date Seen: Aug 15, 2024 Medical Necessity Reason Pt with a Central, PICC or Fol: No Subjective Patient reports: Feels better Other Systems: cpap trial pending on ami gtt Objective vital signs Vital Sign Date Time Temp Pulse Resp B/P (MAP) Pulse Ox O2 Delivery O2 Flow Rate FiO2 08/15/24 07:31 80 15 172/88 (116) 100 30 08/15/24 06:00 Mechanical Ventilator+ 08/15/24 04:00 98.1 98.1 Total Intake and Output 08/14/24 08/14/24 08/15/24 15:00 23:00 07:00 Intake Total 309.28 ml 270.21 ml 239.83 ml Output Total 300 ml 500 ml Balance 309.28 ml -29.79 ml -260.17 ml medications Current Medications Medications Dose Ordered Sig/Clay Route Start Time Stop Time Status Last Admin Dose Admin Midazolam HCl 50 ml @ 1 mls/hr Q24H IV 08/12/24 14:45 08/13/24 19:40 11 MLS/HR Propofol 100 ml @ 2.19 mls/hr Q24H IV 08/12/24 14:45 08/14/24 23:34 2.19 MLS/HR Epinephrine HCl 250 ml @ 7.5 mls/hr Q24H IV 08/12/24 14:45 Norepinephrine Bitartrate 250 ml @ 3.75 mls/hr Q24H IV 08/12/24 14:45 08/14/24 08:44 3.75 MLS/HR Ticagrelor 90 mg BID PO 08/13/24 07:30 08/14/24 21:29 90 MG Aspirin 81 mg DAILY PO 08/13/24 10:00 08/14/24 11:10 81 MG Atorvastatin Calcium 80 mg DAILY PO 08/12/24 22:00 08/13/24 09:23 80 MG Diagnostic Test (Pha) 1 strip Q6HR 08/13/24 12:00 08/15/24 05:52 1 STRIP Insulin Human Regular Q6HR SC 08/13/24 12:00 Dextrose 50 ml UD PRN IV 08/13/24 09:00 Vancomycin HCl 0 ml @ 0 mls/hr UD IV 08/13/24 12:00 Pantoprazole Sodium 40 mg DAILY IV 08/14/24 10:00 08/14/24 11:09 40 MG Cefepime HCl 50 ml @ 12.5 mls/hr DAILY@1800 IV 08/14/24 18:00 08/14/24 17:32 12.5 MLS/HR Hydralazine HCl 10 mg Q6HP PRN IV 08/13/24 20:45 08/14/24 19:00 10 MG Heparin Sodium (Porcine) 5,000 units Q12HR SC 08/14/24 22:00 08/14/24 21:30 5,000 UNITS Labetalol HCl 10 mg Q4HPRN PRN IV 08/14/24 20:00 08/15/24 05:53 10 MG Examination: GENERAL:Abnormal, HEENT:Abnormal, LUNGS:Abnormal, CVS:Abnormal, ABDOMEN:Abnormal laboratory and microbiology Laboratory Tests 08/15/24 03:00 Test 08/15/24 03:00 Range/Units Serum Glucose 136 H 74-106 mg/dL Microbiology Date/Time Source Procedure Growth Status 08/12/24 20:15 Nose MRSA Screen - Final Complete 08/12/24 14:28 Sputum Gram Stain - Final Resulted 08/12/24 14:28 Sputum Respiratory Culture - Preliminary Resulted 08/12/24 14:20 Blood Blood Culture - Preliminary Resulted Problem List/Assessment/Plan Problem List/Assessment/Plan cardiac arrest resp failure cad s/p pci nstemi esrd on hd pad hypotension cont dapt cont statin wean off pressors daily awakening, abg improved HD per renal eventual PAD assessment when more stable for chronic condition abnormal head ct-fu per primary group dc amio gtt start coreg cont bp control extubate when feasible cont dapt critial care time spent 40 mins Plan discussed with: Patient Dietary Evaluation Review Comments: 1. Pt needs a high protein lower calorie formula d/t Propofol fusiion. Recommend Vital High protein TF @50ml/hr, providing 105 g Protein, 1200kcal. meeting his protein needs @96%, energy needs @95% after adding Propofol@9.7ml/hr for 24 hours. 2. TPN perpharmacy if EN not tolerated. Expected Outcomes/Goals: Reassess needs when extubated Date of Service: Aug 15, 2024 Billing Provider: CYNDIE BACON MD Common Visit Codes: NOT BILLABLE CYNDIE BACON MD Aug 15, 2024 09:00
--- NOTE | 2024-08-15 09:19 | DVHPN2 ---
Progress Note Date Seen: Aug 15, 2024 Medical Necessity Reason Pt with a Central, PICC or Fol: No Subjective Review of Systems: RESPIRATORY:Abnormal Other Systems: Patient seen and examined by myself today in follow-up, patient remained intubated on ventilator Objective vital signs Vital Sign Date Time Temp Pulse Resp B/P (MAP) Pulse Ox O2 Delivery O2 Flow Rate FiO2 08/15/24 07:31 80 15 172/88 (116) 100 30 08/15/24 06:00 Mechanical Ventilator+ 08/15/24 04:00 98.1 98.1 Total Intake and Output 08/14/24 08/14/24 08/15/24 15:00 23:00 07:00 Intake Total 309.28 ml 270.21 ml 239.83 ml Output Total 300 ml 500 ml Balance 309.28 ml -29.79 ml -260.17 ml medications Current Medications Medications Dose Ordered Sig/Clay Route Start Time Stop Time Status Last Admin Dose Admin Midazolam HCl 50 ml @ 1 mls/hr Q24H IV 08/12/24 14:45 08/13/24 19:40 11 MLS/HR Propofol 100 ml @ 2.19 mls/hr Q24H IV 08/12/24 14:45 08/14/24 23:34 2.19 MLS/HR Epinephrine HCl 250 ml @ 7.5 mls/hr Q24H IV 08/12/24 14:45 Norepinephrine Bitartrate 250 ml @ 3.75 mls/hr Q24H IV 08/12/24 14:45 08/14/24 08:44 3.75 MLS/HR Ticagrelor 90 mg BID PO 08/13/24 07:30 08/14/24 21:29 90 MG Aspirin 81 mg DAILY PO 08/13/24 10:00 08/14/24 11:10 81 MG Atorvastatin Calcium 80 mg DAILY PO 08/12/24 22:00 08/13/24 09:23 80 MG Diagnostic Test (Pha) 1 strip Q6HR 08/13/24 12:00 08/15/24 05:52 1 STRIP Insulin Human Regular Q6HR SC 08/13/24 12:00 Dextrose 50 ml UD PRN IV 08/13/24 09:00 Vancomycin HCl 0 ml @ 0 mls/hr UD IV 08/13/24 12:00 Pantoprazole Sodium 40 mg DAILY IV 08/14/24 10:00 08/14/24 11:09 40 MG Cefepime HCl 50 ml @ 12.5 mls/hr DAILY@1800 IV 08/14/24 18:00 08/14/24 17:32 12.5 MLS/HR Hydralazine HCl 10 mg Q6HP PRN IV 08/13/24 20:45 08/14/24 19:00 10 MG Heparin Sodium (Porcine) 5,000 units Q12HR SC 08/14/24 22:00 08/14/24 21:30 5,000 UNITS Labetalol HCl 10 mg Q4HPRN PRN IV 08/14/24 20:00 08/15/24 05:53 10 MG Carvedilol 6.25 mg Q12HR PO 08/15/24 10:00 Examination: LUNGS:Normal, CVS:Normal, MSK:Normal laboratory and microbiology Laboratory Tests 08/15/24 03:00 Test 08/15/24 03:00 Range/Units Serum Glucose 136 H 74-106 mg/dL Microbiology Date/Time Source Procedure Growth Status 08/12/24 20:15 Nose MRSA Screen - Final Complete 08/12/24 14:28 Sputum Gram Stain - Final Resulted 08/12/24 14:28 Sputum Respiratory Culture - Preliminary Resulted 08/12/24 14:20 Blood Blood Culture - Preliminary Resulted Problem List/Assessment/Plan Problem List/Assessment/Plan ESRD on HD Acute respiratory failure, intubated on ventilator Status post cardiac arrest Acute WI status post PTCA/PCI 08/12 DM type II Hyperglycemia Septic shock Anemia of CKD, we will compensated REC: Hemodialysis tomorrow Epogen 10,000 subQ 3 times weekly Strict I&Os IV Abx Insulin SS IV pressors for BP support Cardiology on board Will continue to follow Plan discussed with: Other (Nurse) Dietary Evaluation Review Comments: 1. Pt needs a high protein lower calorie formula d/t Propofol fusiion. Recommend Vital High protein TF @50ml/hr, providing 105 g Protein, 1200kcal. meeting his protein needs @96%, energy needs @95% after adding Propofol@9.7ml/hr for 24 hours. 2. TPN perpharmacy if EN not tolerated. Expected Outcomes/Goals: Reassess needs when extubated YANNA GARCIA MD Aug 15, 2024 09:19
[2024-08-15] MEDS: CARVEDILOL 3.125 MG TAB PO SCH (09:58)
[2024-08-15 10:04] LABS: Base Excess -3.7 mmol/L (-2.0-3.0)
--- NOTE | 2024-08-15 11:54 | DVHPN2 ---
Progress Note Date Seen: Aug 15, 2024 Medical Necessity Reason Pt with a Central, PICC or Fol: No Subjective Patient reports: No new complaints Review of Systems: HEENT:Normal, CVS:Normal, RESPIRATORY:Normal, GI:Normal, :Normal, MSK:Normal, NEURO:Normal Objective vital signs Vital Sign Date Time Temp Pulse Resp B/P (MAP) Pulse Ox O2 Delivery O2 Flow Rate FiO2 08/15/24 11:29 171/91 08/15/24 11:15 78 18 100 08/15/24 10:22 8.0 08/15/24 10:00 Mechanical Ventilator+ 30 30 08/15/24 08:00 98.8 98.8 Total Intake and Output 08/14/24 08/14/24 08/15/24 15:00 23:00 07:00 Intake Total 309.28 ml 270.21 ml 248.86 ml Output Total 300 ml 500 ml Balance 309.28 ml -29.79 ml -251.14 ml medications Current Medications Medications Dose Ordered Sig/Clay Route Start Time Stop Time Status Last Admin Dose Admin Midazolam HCl 50 ml @ 1 mls/hr Q24H IV 08/12/24 14:45 08/13/24 19:40 11 MLS/HR Propofol 100 ml @ 2.19 mls/hr Q24H IV 08/12/24 14:45 08/14/24 23:34 2.19 MLS/HR Epinephrine HCl 250 ml @ 7.5 mls/hr Q24H IV 08/12/24 14:45 Norepinephrine Bitartrate 250 ml @ 3.75 mls/hr Q24H IV 08/12/24 14:45 08/14/24 08:44 3.75 MLS/HR Ticagrelor 90 mg BID PO 08/13/24 07:30 08/15/24 09:57 90 MG Aspirin 81 mg DAILY PO 08/13/24 10:00 08/15/24 09:56 81 MG Atorvastatin Calcium 80 mg DAILY PO 08/12/24 22:00 08/15/24 09:59 80 MG Diagnostic Test (Pha) 1 strip Q6HR 08/13/24 12:00 08/15/24 05:52 1 STRIP Insulin Human Regular Q6HR SC 08/13/24 12:00 Dextrose 50 ml UD PRN IV 08/13/24 09:00 Vancomycin HCl 0 ml @ 0 mls/hr UD IV 08/13/24 12:00 Pantoprazole Sodium 40 mg DAILY IV 08/14/24 10:00 08/15/24 09:55 40 MG Cefepime HCl 50 ml @ 12.5 mls/hr DAILY@1800 IV 08/14/24 18:00 08/14/24 17:32 12.5 MLS/HR Hydralazine HCl 10 mg Q6HP PRN IV 08/13/24 20:45 08/15/24 11:29 10 MG Heparin Sodium (Porcine) 5,000 units Q12HR SC 08/14/24 22:00 08/15/24 10:04 5,000 UNITS Labetalol HCl 10 mg Q4HPRN PRN IV 08/14/24 20:00 08/15/24 05:53 10 MG Carvedilol 6.25 mg Q12HR PO 08/15/24 10:00 08/15/24 09:58 6.25 MG Examination: GENERAL:Normal, HEENT:Normal, NECK:Normal, LUNGS:Normal, LUNGS:Abnormal (intubated), CVS:Normal, ABDOMEN:Normal, MSK:Normal, MSK:Abnormal (bilateral mid foot amputations), SKIN:Normal, NEURO:Normal, :Normal laboratory and microbiology Laboratory Tests 08/15/24 03:00 Test 08/15/24 03:00 Range/Units Serum Glucose 136 H 74-106 mg/dL Microbiology Date/Time Source Procedure Growth Status 08/12/24 20:15 Nose MRSA Screen - Final Complete 08/12/24 14:28 Sputum Gram Stain - Final Resulted 08/12/24 14:28 Sputum Respiratory Culture - Preliminary Resulted 08/12/24 14:20 Blood Blood Culture - Preliminary Resulted Problem List/Assessment/Plan Problem List/Assessment/Plan * Acute respiratory failure for which the patient will continue on assist control ventilation, cpap trial- extubate * Shock, questionably septic, questionably cardiac. The patient will be placed on broad-spectrum antibiotics. His blood cultures are currently positive, iv vanc * Acute myocardial infarction, status post coronary angiography with stenting of the proximal circumflex. * Transaminitis: monitor * End-stage renal disease, on hemodialysis. * Status post CPR. * To rule out hypoxic encephalopathy. * Peripheral vascular disease with bilateral midfoot amputations. Plan discussed with: Other (rn) My Orders My Orders Orders - MAUREEN DOUGHERTY MD Procedure Category Date Status Time Vancomycin,Random LAB 08/16/24 Verified 05:00 Vancomycin Per [facility] 08/14/24 In Process Pharmacy Protoc 14:13 Creatinine LAB 08/16/24 Verified 05:00 Cpap Trial For Am ORDERS 08/14/24 Transmitted 15:56 Chest Portable XY 08/15/24 Resulted 06:00 Abg W/ Co-Ox RT 08/15/24 Logged 06:00 Blood Culture JAVIER 08/15/24 In Process 05:00 Abg W/ Co-Ox RT 08/15/24 Logged 10:00 Extubate KAY 08/15/24 In Process 10:11 Dietary Evaluation Review Comments: 1. Pt needs a high protein lower calorie formula d/t Propofol fusiion. Recommend Vital High protein TF @50ml/hr, providing 105 g Protein, 1200kcal. meeting his protein needs @96%, energy needs @95% after adding Propofol@9.7ml/hr for 24 hours. 2. TPN perpharmacy if EN not tolerated. Expected Outcomes/Goals: Reassess needs when extubated Critical Care Time (mins): 81 (critical care time including monitoring during cpap trial and excluding procedures was 81 mins) Date of Service: Aug 15, 2024 Billing Provider: MAUREEN DOUGHERTY MD Common Visit Codes: 62901-[id number] CARE 30-74 MIN, [id number] CARE-EACH +30MIN MAUREEN DOUGHERTY MD Aug 15, 2024 11:54
[2024-08-15] MEDS: cloNIDine HCL 0.1 MG TAB PO SCH (23:45)
[2024-08-16] VITALS (70 sets, daily range): BP systolic 102–199; BP diastolic 71–105; PULSE 71–102; RESP 11–28; TEMP 97.7–98.3; O2SAT 91–100
[2024-08-16] MEDS: NIFEdipine ER 30 MG TAB PO SCH (00:23)
[2024-08-16 03:42] LABS: Basophils # (auto) 0.1 10 ^3/uL (0-0.2); Basophils % (auto) 0.7 % (0.0-2.0); Eosinophils # (auto) 0.1 10 ^3/uL (0-0.8); Eosinophils % (auto) 1.3 % (0.0-7.0); Hematocrit 31.4 % (41.0-53.0); Hemoglobin 10.5 g/dL (13.5-17.5); Lymphocytes # (auto) 0.8 10 ^3/uL (0.4-5.4); Mean Corpuscular Hemoglobin 32.1 pg (28.0-32.0); Mean Corpuscular Hgb Conc. 33.4 g/dL (32.0-36.0); Mean Corpuscular Volume 96.1 fL (80.0-100.0); Monocytes # (auto) 0.7 10 ^3/uL (0-1.3); Monocytes % (auto) 6.9 % (0.0-12.0); Neutrophils # (auto) 9.1 10 ^3/uL (1.6-8.6); Neutrophils % (auto) 84.1 % (37.0-80.0); Platelet Count (auto) 179 10^3/uL (140-450); Red Blood Cells 3.27 10^6/uL (4.5-5.90); Red Cell Distribution Width 13.8 % (11.8-14.3); White Blood Cell 10.8 10^3/uL (4.4-10.8)
[2024-08-16 04:03] LABS: Albumin 4.3 g/dL (3.2-4.8); Alkaline Phosphatase 82 U/L (46-116); Anion Gap 14 (5-15); BUN/Creatinine Ratio 5.1 (10.0-20.0); Carbon Dioxide 22 mmol/L (20-31); Chloride 103 mmol/L (98-107); Glucose 100 mg/dL (74-106); Potassium 3.9 mmol/L (3.5-5.1); Sodium 139 mmol/L (136-145); Total Protein 7.3 g/dL (5.7-8.2)
[2024-08-16 04:04] LABS: Alanine Aminotransferase 44 U/L (7-40); Aspartate Aminotransferase 31 U/L (13-40); Bilirubin, Total 0.8 mg/dL (0.2-1.0); Blood Urea Nitrogen 32 mg/dL (9-23); Calcium 8.6 mg/dL (8.7-10.4)
--- NOTE | 2024-08-16 06:04 | DVH ---
CHEST RADIOGRAPH Indication: chf Technique: Single frontal view of the chest was obtained Comparison: XY CHEST PORTABLE on DOS: 08/15/24 FINDINGS: Lines and Tubes: Right central venous catheter terminates in the right atrium. Left infusion cathete r terminates in the superior vena cava. Lungs: Hazy right lung opacities. Pleura: No effusion. No pneumothorax. Cardiomediastinal contours: Unremarkable Bones: No acute osseous abnormality. IMPRESSION: 1. Hazy right lung opacities which may reflect pulmonary congestion.
[2024-08-16] MEDS: SODIUM CHL 0.9% 1000 ML BAG XX ONE (07:00)
--- NOTE | 2024-08-16 12:12 | DVHPN2 ---
Progress Note - Dictate Date Seen: Aug 16, 2024 Medical Necessity Reason Pt with a Central, PICC or Fol: No Subjective somnolent, head of the bed elevatred. patient's daughter at bedside vital signs Vital Sign Date Time Temp Pulse Resp B/P (MAP) Pulse Ox O2 Delivery O2 Flow Rate FiO2 08/16/24 11:23 84 145/85 08/16/24 10:00 14 100 08/16/24 10:00 Nasal Cannula* 5 40 08/16/24 08:00 98.2 98.2 Total Intake and Output 08/15/24 08/15/24 08/16/24 15:00 23:00 07:00 Intake Total 24.763 ml 60 ml 120 ml Output Total 790 ml 700 ml Balance 24.763 ml -730 ml -580 ml medications Current Medications Medications Dose Ordered Sig/Clay Route Start Time Stop Time Status Last Admin Dose Admin Epinephrine HCl 250 ml @ 7.5 mls/hr Q24H IV 08/12/24 14:45 Norepinephrine Bitartrate 250 ml @ 3.75 mls/hr Q24H IV 08/12/24 14:45 08/14/24 08:44 3.75 MLS/HR Ticagrelor 90 mg BID PO 08/13/24 07:30 08/15/24 21:53 90 MG Aspirin 81 mg DAILY PO 08/13/24 10:00 08/15/24 09:56 81 MG Atorvastatin Calcium 80 mg DAILY PO 08/12/24 22:00 08/15/24 09:59 80 MG Diagnostic Test (Pha) 1 strip Q6HR 08/13/24 12:00 08/16/24 06:12 1 STRIP Insulin Human Regular Q6HR SC 08/13/24 12:00 08/15/24 23:56 2 UNITS Dextrose 50 ml UD PRN IV 08/13/24 09:00 Vancomycin HCl 0 ml @ 0 mls/hr UD IV 08/13/24 12:00 Pantoprazole Sodium 40 mg DAILY IV 08/14/24 10:00 08/16/24 11:24 40 MG Cefepime HCl 50 ml @ 12.5 mls/hr DAILY@1800 IV 08/14/24 18:00 08/15/24 17:39 12.5 MLS/HR Hydralazine HCl 10 mg Q6HP PRN IV 08/13/24 20:45 08/16/24 03:29 10 MG Heparin Sodium (Porcine) 5,000 units Q12HR SC 08/14/24 22:00 08/16/24 11:36 5,000 UNITS Labetalol HCl 10 mg Q4HPRN PRN IV 08/14/24 20:00 08/16/24 04:45 10 MG Carvedilol 6.25 mg Q12HR PO 08/15/24 10:00 08/16/24 11:23 6.25 MG Nifedipine 60 mg DAILY PO 08/15/24 23:30 08/16/24 00:23 60 MG Clonidine HCl 0.1 mg TID PO 08/15/24 23:30 08/16/24 06:12 0.1 MG Albuterol 2.5 mg Q4HR NEB 08/16/24 14:00 Ipratropium [place] 0.5 mg Q4HR NEB 08/16/24 14:00 objective gen: nad lungs: cta cvs: no rub ext + edema laboratory and microbiology Laboratory Tests 08/16/24 03:15 Test 08/16/24 03:15 Range/Units Serum Glucose 100 74-106 mg/dL Assessment/Plan ESRD on HD Acute respiratory failure, intubated on ventilator Status post cardiac arrest Acute [place] status post PTCA/PCI 08/12 DM type II Hyperglycemia Septic shock Anemia of CKD, we will compensated REC: will continue with daily evaluation for [employer] discussed with patient's family re plan of care from nephrology perspective Dietary Evaluation Review Comments: 1. Pt needs a high protein lower calorie formula d/t Propofol fusiion. Recommend Vital High protein TF @50ml/hr, providing 105 g Protein, 1200kcal. meeting his protein needs @96%, energy needs @95% after adding Propofol@9.7ml/hr for 24 hours. 2. TPN perpharmacy if EN not tolerated. Expected Outcomes/Goals: Reassess needs when extubated Plan discussed with: Daughter KIERSTEN LEE MD Aug 16, 2024 12:12
--- NOTE | 2024-08-16 12:19 | DVHPN2 ---
Progress Note - Dictate Date Seen: Aug 16, 2024 Medical Necessity Reason Pt with a Central, PICC or Fol: No vital signs Vital Sign Date Time Temp Pulse Resp B/P (MAP) Pulse Ox O2 Delivery O2 Flow Rate FiO2 08/16/24 11:23 84 145/85 08/16/24 10:00 14 100 08/16/24 10:00 Nasal Cannula* 5 40 08/16/24 08:00 98.2 98.2 Total Intake and Output 08/15/24 08/15/24 08/16/24 15:00 23:00 07:00 Intake Total 24.763 ml 60 ml 120 ml Output Total 790 ml 700 ml Balance 24.763 ml -730 ml -580 ml medications Current Medications Medications Dose Ordered Sig/Clay Route Start Time Stop Time Status Last Admin Dose Admin Epinephrine HCl 250 ml @ 7.5 mls/hr Q24H IV 08/12/24 14:45 Norepinephrine Bitartrate 250 ml @ 3.75 mls/hr Q24H IV 08/12/24 14:45 08/14/24 08:44 3.75 MLS/HR Ticagrelor 90 mg BID PO 08/13/24 07:30 08/15/24 21:53 90 MG Aspirin 81 mg DAILY PO 08/13/24 10:00 08/15/24 09:56 81 MG Atorvastatin Calcium 80 mg DAILY PO 08/12/24 22:00 08/15/24 09:59 80 MG Diagnostic Test (Pha) 1 strip Q6HR 08/13/24 12:00 08/16/24 06:12 1 STRIP Insulin Human Regular Q6HR SC 08/13/24 12:00 08/15/24 23:56 2 UNITS Dextrose 50 ml UD PRN IV 08/13/24 09:00 Vancomycin HCl 0 ml @ 0 mls/hr UD IV 08/13/24 12:00 Pantoprazole Sodium 40 mg DAILY IV 08/14/24 10:00 08/16/24 11:24 40 MG Cefepime HCl 50 ml @ 12.5 mls/hr DAILY@1800 IV 08/14/24 18:00 08/15/24 17:39 12.5 MLS/HR Hydralazine HCl 10 mg Q6HP PRN IV 08/13/24 20:45 08/16/24 03:29 10 MG Heparin Sodium (Porcine) 5,000 units Q12HR SC 08/14/24 22:00 08/16/24 11:36 5,000 UNITS Labetalol HCl 10 mg Q4HPRN PRN IV 08/14/24 20:00 08/16/24 04:45 10 MG Carvedilol 6.25 mg Q12HR PO 08/15/24 10:00 08/16/24 11:23 6.25 MG Nifedipine 60 mg DAILY PO 08/15/24 23:30 08/16/24 00:23 60 MG Clonidine HCl 0.1 mg TID PO 08/15/24 23:30 08/16/24 06:12 0.1 MG Albuterol 2.5 mg Q4HR NEB 08/16/24 14:00 Ipratropium [place] 0.5 mg Q4HR NEB 08/16/24 14:00 laboratory and microbiology Laboratory Tests 08/16/24 03:15 Test 08/16/24 03:15 Range/Units Serum Glucose 100 74-106 mg/dL Assessment/Plan covering for Dr Tran Patient seen and examined in the ICU Events Asked to see patient For altered mental status Impression/diagnoses Status post cardiac arrest requiring CPR End-stage renal disease/hemodialysis Acute hypoxemic respiratory failure status post extubation Diabetes with multiple complications Labs reviewed/imaging studies reviewed Chest x-ray hazy opacity Patient arousable to noxious stimuli only Very lethargic Did not sleep last night Status post hemodialysis 2 L Management plan Obtain ABG Okay to use BiPAP for increased work of breathing And hypercapnia NPO until more awake Risk for aspiration Continue antibiotics for sepsis Bronchodilators Dialysis/defer to Nephrology Family at the bedside updated Patient is full code Critical care time 35 minutes Dietary Evaluation Review Comments: 1. Pt needs a high protein lower calorie formula d/t Propofol fusiion. Recommend Vital High protein TF @50ml/hr, providing 105 g Protein, 1200kcal. meeting his protein needs @96%, energy needs @95% after adding Propofol@9.7ml/hr for 24 hours. 2. TPN perpharmacy if EN not tolerated. Expected Outcomes/Goals: Reassess needs when extubated Plan discussed with: Patient (rn) IVONNE BEAUCHAMP MD Aug 16, 2024 12:19
--- NOTE | 2024-08-16 13:05 | DVH ---
CT HEAD WITHOUT CONTRAST INDICATION: ALOC EXAM DATE: 08/16/2024 12:33 PM COMPARISON: CT HEAD WITHOUT CONTRAST on DOS: 08/12/24 RADIATION DOSE: CTDIvol: 69.38 mGy, DLP: 1366.97 mGy*cm PROCEDURE: CT scans of the head were obtained from the vertex to the skull base. Sagittal and coronal reconstructions were provided. All CT scans at this medical facility are performed using dose modulation techniques as appropriate t o a performed exam including the following: Automated exposure control was utilized; adjustment of th e MA and/or KV according to patient size; and use of iterative reconstruction technique. FINDINGS: Hypodensity in the left cerebellum from old infarct, stable. There is sulcal and ventricul ar prominence. The brain otherwise shows normal morphology and bagley-white matter differentiation, wit hout intracranial hemorrhage, extra-axial fluid collection, mass effect or acute large vessel infarct . The ventricles are normal in size. The basal cisterns are patent. The skull and visible facial bone s are intact. The paranasal sinuses, mastoid air cells and middle ear cavities are well-aerated. The soft tissues of the scalp are unremarkable. IMPRESSION: No acute intracranial abnormality.
--- NOTE | 2024-08-16 14:23 | DVHPN2 ---
Subjective He was extubated yesterday morning He is lethargic now He wakes up and follows commands was very weak with faint voice He is able to move his extremities on command Oxygen saturation is normal although he was hypoxic overnight Changes from previous H/P or p: Changes Objective Vitals Vital Signs Date Time Temp Pulse Resp B/P (MAP) Pulse Ox O2 Delivery O2 Flow Rate FiO2 08/16/24 12:54 83 159/94 08/16/24 12:00 14 100 Nasal Cannula* 5 40 08/16/24 08:00 98.2 98.2 Intake/Output Intake and Output 08/16/24 07:00 Intake Total 204.763 ml Output Total 1490 ml Balance -1285.237 ml Intake Oral 180 ml IV Total 24.763 ml Output Urine Total 1490 ml Stool Total 0 ml General Appearance: Alert, Other Lungs: Clear to auscultation, Normal air movement Cardiovascular: Regular rate, Normal S1, Normal S2 Abdomen: Normal bowel sounds, Soft, No tenderness Extremities: No edema Medications Current Medications Medications Dose Ordered Sig/Clay Route Start Time Stop Time Status Last Admin Dose Admin Epinephrine HCl 250 ml @ 7.5 mls/hr Q24H IV 08/12/24 14:45 Norepinephrine Bitartrate 250 ml @ 3.75 mls/hr Q24H IV 08/12/24 14:45 08/14/24 08:44 3.75 MLS/HR Ticagrelor 90 mg BID PO 08/13/24 07:30 08/15/24 21:53 90 MG Aspirin 81 mg DAILY PO 08/13/24 10:00 08/15/24 09:56 81 MG Diagnostic Test (Pha) 1 strip Q6HR 08/13/24 12:00 08/16/24 12:00 1 STRIP Insulin Human Regular Q6HR SC 08/13/24 12:00 08/15/24 23:56 2 UNITS Dextrose 50 ml UD PRN IV 08/13/24 09:00 Vancomycin HCl 0 ml @ 0 mls/hr UD IV 08/13/24 12:00 Pantoprazole Sodium 40 mg DAILY IV 08/14/24 10:00 08/16/24 11:24 40 MG Cefepime HCl 50 ml @ 12.5 mls/hr DAILY@1800 IV 08/14/24 18:00 08/15/24 17:39 12.5 MLS/HR Hydralazine HCl 10 mg Q6HP PRN IV 08/13/24 20:45 08/16/24 03:29 10 MG Heparin Sodium (Porcine) 5,000 units Q12HR SC 08/14/24 22:00 08/16/24 11:36 5,000 UNITS Labetalol HCl 10 mg Q4HPRN PRN IV 08/14/24 20:00 08/16/24 04:45 10 MG Carvedilol 6.25 mg Q12HR PO 08/15/24 10:00 08/16/24 11:23 6.25 MG Nifedipine 60 mg DAILY PO 08/15/24 23:30 08/16/24 00:23 60 MG Clonidine HCl 0.1 mg TID PO 08/15/24 23:30 08/16/24 06:12 0.1 MG Albuterol 2.5 mg Q4HR NEB 08/16/24 14:00 Ipratropium [place] 0.5 mg Q4HR NEB 08/16/24 14:00 Atorvastatin Calcium 80 mg HS PO 08/16/24 22:00 Laboratory Results Laboratory Tests 08/16/24 03:15 Chemistry Test 08/16/24 03:15 Albumin 4.3 g/dL (3.2-4.8) Calcium Level 8.6 mg/dL (8.7-10.4) L Total Protein 7.3 g/dL (5.7-8.2) LFT Test 08/16/24 03:15 Alanine Aminotransferase (ALT) 44 U/L (7-40) H Alkaline Phosphatase 82 U/L (46-116) Aspartate Amino Transferase (AST) 31 U/L (13-40) Total Bilirubin 0.8 mg/dL (0.2-1.0) Urinalysis Test 08/12/24 19:40 Urine Color Light-brown (Yellow) Urine Clarity Turbid (Clear) H Urine pH 6.0 (5.0-9.0) Urine Specific [place] 1.015 (1.001-1.035) Urine Protein 2+ (Negative) H Urine Ketones Negative (Negative) Urine Blood Negative /uL (Negative) Urine Nitrite Negative (Negative) Urine Bilirubin Negative (Negative) Urine Urobilinogen Normal mg/dL (Negative) Urine Leukocyte Esterase Negative /uL (Negative) Urine RBC <1 /hpf (0 - 3) Urine Microscopic WBC < 1 /HPF (0-3) Urine Squamous Epithelial Cells Mod /hpf (<5) Urine Bacteria None seen /hpf (None Seen) Urine Glucose Normal mg/dL (Normal) Microbiology Microbiology Date/Time Source Procedure Growth Status 08/15/24 03:00 Blood Blood Culture - Preliminary NO GROWTH AFTER 24 HOURS OF INCUBATION. Resulted 08/12/24 20:15 Nose MRSA Screen - Final Complete 08/12/24 14:28 Sputum Gram Stain - Final Complete 08/12/24 14:28 Sputum Respiratory Culture - Final Complete Assessment/Plan Assessment/Plan Metabolic encephalopathy most likely residual of sedation Acute hypoxic respiratory failure, status post extubation since yesterday Old CVA Type 2 diabetes End-stage renal disease on hemodialysis Status post bilateral partial feet amputations NSTEMI status post stenting of the circumflex artery on aspirin and Brilinta Status post CPR Anemia of chronic kidney disease Plan Repeat CT scan of the head was done today was negative for acute changes, he has old CVA in the left cerebellum IV antibiotics cefepime and vancomycin Continue aspirin and Brilinta The patient is not able to swallow and therefore we will try to do a swallow evaluation but if not possible then we will insert an NG tube so the patient can have his aspirin and Brilinta Discussed with the daughter at the bedside and the on the phone Monitor closely Plan discussed with: Patient My Orders Orders - MECHE TEIXEIRA MD Procedure Category Date Status Time *Consult CONS 08/16/24 Transmitted / 11:29 Place Ng ORDERS 08/16/24 Transmitted 11:[address] 08/16/24 Logged 11:45 Abg W/ Co-Ox RT 08/16/24 Logged 11:[address] 08/16/24 Resulted 11:58 Date of Service: Aug 16, 2024 Billing Provider: MECHE TEIXEIRA MD Common Visit Codes: [id number] INP/OBS CARE(HIGH) MECHE TEIXEIRA MD Aug 16, 2024 14:23
[2024-08-16] MEDS: ALBUTEROL SULF 2.5 MG/0.5ML(0.5%) NEB SOLN NEB SCH (14:24)
[2024-08-16] MEDS: IPRATROPIUM BROM 0.5 MG/2.5ML INH SOL NEB SCH (14:24)
--- NOTE | 2024-08-16 15:37 | DVH ---
Indication: check placement of ng tube Technique: Single view lower chest/upper abdomen Comparison: None FINDINGS/IMPRESSION: Nasogastric tube projects towards the stomach. Left chest escobar catheter tip projecting over the SVC . Right IJ Perma catheter tip projecting over the cavoatrial junction.
[2024-08-16] MEDS: cloNIDine HCL 0.1 MG TAB PO SCH ×2 (16:04→22:10)
[2024-08-16 16:38] LABS: Base Excess -2.9 mmol/L (-2.0-3.0)
[2024-08-16] MEDS: EPOETIN ALFA-EPBX 10,000 UNIT/1ML VIAL SC ONE (22:10)
[2024-08-16] MEDS: ATORVASTATIN 20 MG TAB PO SCH (22:10)
[2024-08-17] VITALS (100 sets, daily range): BP systolic 93–197; BP diastolic 61–117; PULSE 65–97; RESP 8–24; TEMP 97.9–98.6; O2SAT 96–100
[2024-08-17] MEDS: HYDROmorphone HCL 2 MG/ML VL/or syr IV ONE (03:14)
[2024-08-17 04:16] LABS: Basophils # (auto) 0.1 10 ^3/uL (0-0.2); Basophils % (auto) 0.9 % (0.0-2.0); Eosinophils # (auto) 0 10 ^3/uL (0-0.8); Eosinophils % (auto) 0.5 % (0.0-7.0); Hematocrit 32.9 % (41.0-53.0); Lymphocytes # (auto) 0.8 10 ^3/uL (0.4-5.4); Lymphocytes % (auto) 8.5 % (10.0-50.0); Mean Corpuscular Hemoglobin 32.3 pg (28.0-32.0); Mean Corpuscular Hgb Conc. 33.5 g/dL (32.0-36.0); Mean Corpuscular Volume 96.5 fL (80.0-100.0); Monocytes # (auto) 0.8 10 ^3/uL (0-1.3); Neutrophils # (auto) 7.8 10 ^3/uL (1.6-8.6); Neutrophils % (auto) 82.1 % (37.0-80.0); Platelet Count (auto) 238 10^3/uL (140-450); Red Blood Cells 3.41 10^6/uL (4.5-5.90); Red Cell Distribution Width 13.5 % (11.8-14.3); White Blood Cell 9.5 10^3/uL (4.4-10.8)
[2024-08-17 04:33] LABS: Alanine Aminotransferase 30 U/L (7-40); Albumin 4.4 g/dL (3.2-4.8); Alkaline Phosphatase 88 U/L (46-116); Anion Gap 18 (5-15); Aspartate Aminotransferase 22 U/L (13-40); BUN/Creatinine Ratio 4.8 (10.0-20.0); Calcium 9.4 mg/dL (8.7-10.4); Chloride 101 mmol/L (98-107); Magnesium 2.2 mg/dL (1.6-2.6); Potassium 3.9 mmol/L (3.5-5.1); Sodium 139 mmol/L (136-145); Total Protein 7.6 g/dL (5.7-8.2)
[2024-08-17 04:34] LABS: Bilirubin, Total 0.7 mg/dL (0.2-1.0)
[2024-08-17 04:36] LABS: Blood Urea Nitrogen 26 mg/dL (9-23); Carbon Dioxide 20 mmol/L (20-31); Glucose 118 mg/dL (74-106)
--- NOTE | 2024-08-17 13:26 | DVHPN2 ---
Subjective He is more alert and oriented today He is following commands Changes from previous H/P or p: Changes Objective Vitals Vital Signs Date Time Temp Pulse Resp B/P (MAP) Pulse Ox O2 Delivery O2 Flow Rate FiO2 08/17/24 12:53 171/91 08/17/24 12:00 87 08/17/24 12:00 12 100 Nasal Cannula* 3 32 08/17/24 04:00 98.6 98.6 Intake/Output Intake and Output 08/17/24 07:00 Intake Total 50 ml Output Total 500 ml Balance -450 ml IV Total 50 ml Output Urine Total 500 ml General Appearance: Alert, Other Lungs: Clear to auscultation, Normal air movement Cardiovascular: Regular rate, Normal S1, Normal S2 Abdomen: Normal bowel sounds, Soft, No tenderness Extremities: No edema Medications Current Medications Medications Dose Ordered Sig/Clay Route Start Time Stop Time Status Last Admin Dose Admin Epinephrine HCl 250 ml @ 7.5 mls/hr Q24H IV 08/12/24 14:45 Norepinephrine Bitartrate 250 ml @ 3.75 mls/hr Q24H IV 08/12/24 14:45 08/14/24 08:44 3.75 MLS/HR Ticagrelor 90 mg BID PO 08/13/24 07:30 08/17/24 10:24 90 MG Aspirin 81 mg DAILY PO 08/13/24 10:00 08/17/24 10:26 81 MG Diagnostic Test (Pha) 1 strip Q6HR 08/13/24 12:00 08/17/24 11:41 1 STRIP Insulin Human Regular Q6HR SC 08/13/24 12:00 08/15/24 23:56 2 UNITS Dextrose 50 ml UD PRN IV 08/13/24 09:00 Vancomycin HCl 0 ml @ 0 mls/hr UD IV 08/13/24 12:00 Pantoprazole Sodium 40 mg DAILY IV 08/14/24 10:00 08/17/24 10:25 40 MG Cefepime HCl 50 ml @ 12.5 mls/hr DAILY@1800 IV 08/14/24 18:00 08/16/24 18:26 12.5 MLS/HR Hydralazine HCl 10 mg Q6HP PRN IV 08/13/24 20:45 08/16/24 03:29 10 MG Heparin Sodium (Porcine) 5,000 units Q12HR SC 08/14/24 22:00 08/17/24 10:24 5,000 UNITS Labetalol HCl 10 mg Q4HPRN PRN IV 08/14/24 20:00 08/17/24 00:09 10 MG Carvedilol 6.25 mg Q12HR PO 08/15/24 10:00 08/17/24 10:25 6.25 MG Albuterol 2.5 mg Q4HR NEB 08/16/24 14:00 08/17/24 09:35 2.5 MG Ipratropium [place] 0.5 mg Q4HR NEB 08/16/24 14:00 08/17/24 09:36 0.5 MG Atorvastatin Calcium 80 mg HS PO 08/16/24 22:00 08/16/24 22:10 80 MG Clonidine HCl 0.2 mg Q6H PO 08/16/24 22:00 08/17/24 12:53 0.2 MG Laboratory Results Laboratory Tests 08/17/24 03:17 08/17/24 03:47 Chemistry Test 08/17/24 03:17 Albumin 4.4 g/dL (3.2-4.8) Calcium Level 9.4 mg/dL (8.7-10.4) Magnesium Level 2.2 mg/dL (1.6-2.6) Total Protein 7.6 g/dL (5.7-8.2) LFT Test 08/17/24 03:17 Alanine Aminotransferase (ALT) 30 U/L (7-40) Alkaline Phosphatase 88 U/L (46-116) Aspartate Amino Transferase (AST) 22 U/L (13-40) Total Bilirubin 0.7 mg/dL (0.2-1.0) Urinalysis Test 08/12/24 19:40 Urine Color Light-brown (Yellow) Urine Clarity Turbid (Clear) H Urine pH 6.0 (5.0-9.0) Urine Specific [place] 1.015 (1.001-1.035) Urine Protein 2+ (Negative) H Urine Ketones Negative (Negative) Urine Blood Negative /uL (Negative) Urine Nitrite Negative (Negative) Urine Bilirubin Negative (Negative) Urine Urobilinogen Normal mg/dL (Negative) Urine Leukocyte Esterase Negative /uL (Negative) Urine RBC <1 /hpf (0 - 3) Urine Microscopic WBC < 1 /HPF (0-3) Urine Squamous Epithelial Cells Mod /hpf (<5) Urine Bacteria None seen /hpf (None Seen) Urine Glucose Normal mg/dL (Normal) Microbiology Microbiology Date/Time Source Procedure Growth Status 08/15/24 03:00 Blood Blood Culture - Preliminary NO GROWTH AFTER 48 HOURS OF INCUBATION. Resulted 08/12/24 20:15 Nose MRSA Screen - Final Complete 08/12/24 14:28 Sputum Gram Stain - Final Complete 08/12/24 14:28 Sputum Respiratory Culture - Final Complete Assessment/Plan Assessment/Plan Metabolic encephalopathy most likely residual of sedation Acute hypoxic respiratory failure, status post extubation since yesterday Old CVA Type 2 diabetes End-stage renal disease on hemodialysis Status post bilateral partial feet amputations NSTEMI status post stenting of the circumflex artery on aspirin and Brilinta Status post CPR Anemia of chronic kidney disease Plan Repeat CT scan of the head was done today was negative for acute changes, he has old CVA in the left cerebellum IV antibiotics cefepime and vancomycin Continue aspirin and Brilinta The patient is not able to swallow and therefore we will try to do a swallow evaluation but if not possible then we will insert an NG tube so the patient can have his aspirin and Brilinta Discussed with the daughter at the bedside and the on the phone Monitor closely 08/17/2024: Continue IV antibiotics cefepime and vancomycin Continue aspirin and Brilinta with the NG tube Start tube feeding Dysphagia: Continue NG tube and start feeding For dialysis per Nephrology Plan discussed with: Patient My Orders Orders - MECHE TEIXEIRA MD Procedure Category Date Status Time Chest Portable XY 08/16/24 Resulted 14:55 Clonidine Hcl Tablet PHA 08/16/24 In Process (Catapres Tablet) 22:00 Date of Service: Aug 17, 2024 Billing Provider: MECHE TEIXEIRA MD Common Visit Codes: [id number] INP/OBS CARE(HIGH) MECHE TEIXEIRA MD Aug 17, 2024 13:25
--- NOTE | 2024-08-17 13:54 | DVHPN2 ---
Progress Note Date Seen: Aug 17, 2024 Medical Necessity Reason Pt with a Central, PICC or Fol: No Subjective Review of Systems Pt awake and alert. Patient reports: No new complaints Objective vital signs Vital Sign Date Time Temp Pulse Resp B/P (MAP) Pulse Ox O2 Delivery O2 Flow Rate FiO2 08/17/24 13:44 161/93 08/17/24 13:37 75 18 100 08/17/24 13:26 Nasal Cannula 2.0 08/17/24 13:26 28 08/17/24 04:00 98.6 98.6 Total Intake and Output 08/16/24 08/16/24 08/17/24 15:00 23:00 07:00 Intake Total 50 ml Output Total 250 ml 250 ml Balance -200 ml -250 ml medications Current Medications Medications Dose Ordered Sig/Clay Route Start Time Stop Time Status Last Admin Dose Admin Epinephrine HCl 250 ml @ 7.5 mls/hr Q24H IV 08/12/24 14:45 Norepinephrine Bitartrate 250 ml @ 3.75 mls/hr Q24H IV 08/12/24 14:45 08/14/24 08:44 3.75 MLS/HR Ticagrelor 90 mg BID PO 08/13/24 07:30 08/17/24 10:24 90 MG Aspirin 81 mg DAILY PO 08/13/24 10:00 08/17/24 10:26 81 MG Diagnostic Test (Pha) 1 strip Q6HR 08/13/24 12:00 08/17/24 11:41 1 STRIP Insulin Human Regular Q6HR SC 08/13/24 12:00 08/15/24 23:56 2 UNITS Dextrose 50 ml UD PRN IV 08/13/24 09:00 Vancomycin HCl 0 ml @ 0 mls/hr UD IV 08/13/24 12:00 Pantoprazole Sodium 40 mg DAILY IV 08/14/24 10:00 08/17/24 10:25 40 MG Cefepime HCl 50 ml @ 12.5 mls/hr DAILY@1800 IV 08/14/24 18:00 08/16/24 18:26 12.5 MLS/HR Hydralazine HCl 10 mg Q6HP PRN IV 08/13/24 20:45 08/17/24 13:44 10 MG Heparin Sodium (Porcine) 5,000 units Q12HR SC 08/14/24 22:00 6/7/25 10:24 5,000 UNITS Labetalol HCl 10 mg Q4HPRN PRN IV 08/14/24 20:00 08/17/24 00:09 10 MG Carvedilol 6.25 mg Q12HR PO 08/15/24 10:00 08/17/24 10:25 6.25 MG Albuterol 2.5 mg Q4HR NEB 08/16/24 14:00 08/17/24 13:26 2.5 MG Ipratropium [place] 0.5 mg Q4HR NEB 08/16/24 14:00 08/17/24 13:26 0.5 MG Atorvastatin Calcium 80 mg HS PO 08/16/24 22:00 08/16/24 22:10 80 MG Clonidine HCl 0.2 mg Q6H PO 08/16/24 22:00 08/17/24 12:53 0.2 MG Examination Gen: NAD Lungs: Bilateral air entry, no rales Heart: RRR, normal S1 and S2 Ext: No edema Neuro: Alert laboratory and microbiology Laboratory Tests 08/17/24 03:47 08/17/24 03:17 Test 08/17/24 03:17 Range/Units Serum Glucose 118 H 74-106 mg/dL Microbiology Date/Time Source Procedure Growth Status 08/15/24 03:00 Blood Blood Culture - Preliminary NO GROWTH AFTER 48 HOURS OF INCUBATION. Resulted 08/12/24 20:15 Nose MRSA Screen - Final Complete 08/12/24 14:28 Sputum Gram Stain - Final Complete 08/12/24 14:28 Sputum Respiratory Culture - Final Complete Labs and/or images reviewed: Labs reviewed by me Problem List/Assessment/Plan Problem List/Assessment/Plan IMP ESRD on HD- last HD 08/16 Acute respiratory failure Status post cardiac arrest Acute UT status post PTCA/PCI 08/12 DM type II Hyperglycemia Septic shock Anemia of CKD REC: Daily evaluation for ANTHROPOLOGIST Chemistry panel Strict I&Os Agree with Nepro tube feedings We will continue to follow Case discussed with Dr. Sid Do Plan discussed with: Patient, Spouse, Daughter Dietary Evaluation Review Comments: 1. Pt needs a high protein lower calorie formula d/t Propofol fusiion. Recommend Vital High protein TF @50ml/hr, providing 105 g Protein, 1200kcal. meeting his protein needs @96%, energy needs @95% after adding Propofol@9.7ml/hr for 24 hours. 2. TPN perpharmacy if EN not tolerated. Expected Outcomes/Goals: Reassess needs when extubated [facility] Aug 17, 2024 13:54
[2024-08-17] MEDS ORDERED: ACETAMINOPHEN 650 mg PER 20.3 mL UD GT PRN (14:00)
[2024-08-17] MEDS: VANCOMYCIN 500mg/100mL 100 ML IV ONE (15:14)
[2024-08-17] MEDS: Nepro With Carb Steady 1 Liter Bottle GT SCH (18:53)
--- NOTE | 2024-08-17 19:01 | DVHPN2 ---
Progress Note - Dictate Date Seen: Aug 17, 2024 Medical Necessity Reason Pt with a Central, PICC or Fol: No vital signs Vital Sign Date Time Temp Pulse Resp B/P (MAP) Pulse Ox O2 Delivery O2 Flow Rate FiO2 08/17/24 18:41 70 18 100 08/17/24 18:34 Nasal Cannula* 2 28 08/17/24 18:26 134/87 08/17/24 16:00 97.9 97.9 Total Intake and Output 08/16/24 08/16/24 08/17/24 15:00 23:00 07:00 Intake Total 50 ml Output Total 250 ml 250 ml Balance -200 ml -250 ml medications Current Medications Medications Dose Ordered Sig/Clay Route Start Time Stop Time Status Last Admin Dose Admin Epinephrine HCl 250 ml @ 7.5 mls/hr Q24H IV 08/12/24 14:45 Norepinephrine Bitartrate 250 ml @ 3.75 mls/hr Q24H IV 08/12/24 14:45 08/14/24 08:44 3.75 MLS/HR Ticagrelor 90 mg BID PO 08/13/24 07:30 08/17/24 10:24 90 MG Aspirin 81 mg DAILY PO 08/13/24 10:00 08/17/24 10:26 81 MG Diagnostic Test (Pha) 1 strip Q6HR 08/13/24 12:00 08/17/24 17:36 1 STRIP Insulin Human Regular Q6HR SC 08/13/24 12:00 08/15/24 23:56 2 UNITS Dextrose 50 ml UD PRN IV 08/13/24 09:00 Vancomycin HCl 0 ml @ 0 mls/hr UD IV 08/13/24 12:00 Pantoprazole Sodium 40 mg DAILY IV 08/14/24 10:00 08/17/24 10:25 40 MG Cefepime HCl 50 ml @ 12.5 mls/hr DAILY@1800 IV 08/14/24 18:00 08/17/24 17:35 12.5 MLS/HR Hydralazine HCl 10 mg Q6HP PRN IV 08/13/24 20:45 08/17/24 13:44 10 MG Heparin Sodium (Porcine) 5,000 units Q12HR SC 08/14/24 22:00 08/17/24 10:24 5,000 UNITS Labetalol HCl 10 mg Q4HPRN PRN IV 08/14/24 20:00 08/17/24 18:26 10 MG Carvedilol 6.25 mg Q12HR PO 08/15/24 10:00 08/17/24 10:25 6.25 MG Albuterol 2.5 mg Q4HR NEB 08/16/24 14:00 08/17/24 18:34 2.5 MG Ipratropium [place] 0.5 mg Q4HR NEB 08/16/24 14:00 08/17/24 18:34 0.5 MG Atorvastatin Calcium 80 mg HS PO 08/16/24 22:00 08/16/24 22:10 80 MG Clonidine HCl 0.2 mg Q6H PO 08/16/24 22:00 08/17/24 18:11 0.2 MG Enteral Nutritional Formula 1,000 ml 30ML/HR GT 08/17/24 14:00 08/17/24 18:53 1,000 ML Acetaminophen 650 mg Q6HP PRN GT 08/17/24 14:00 laboratory and microbiology Laboratory Tests 08/17/24 03:47 08/17/24 03:17 Test 08/17/24 03:17 Range/Units Serum Glucose 118 H 74-106 mg/dL Dietary Evaluation Review Comments: 1. Pt needs a high protein lower calorie formula d/t Propofol fusiion. Recommend Vital High protein TF @50ml/hr, providing 105 g Protein, 1200kcal. meeting his protein needs @96%, energy needs @95% after adding Propofol@9.7ml/hr for 24 hours. 2. TPN perpharmacy if EN not tolerated. Expected Outcomes/Goals: Reassess needs when extubated RASHID DUENAS MD Aug 17, 2024 19:01
--- NOTE | 2024-08-17 19:58 | DVHINCON2 ---
Date of service: Aug 17, 2024 Referring Physician Tima Gutierrez MD [facility] Reason for Consultation Acute hypoxic respiratory failure History of Present Illness Patient is 49-year-old man with past medical history of ESRD on HD q --, diabetes mellitus, and hypertension who was admitted from HD center on 08/12/24 when patient was noted with unresponsiveness and hypotension. In the ER patient coded status post cardiac arrest, was taken to the yard laborer by Dr. Ruth and status post PTCA and PCI. He was intubated and placed on mechanical ventilator. Patient is currently extubated and on supplemental oxygen. Pulmonary consultation is requested for evaluation and management of acute hypoxic respiratory failure. Review of Systems: 14-point review of systems negative unless otherwise noted above. Past Medical History End-stage renal disease, DM, High Lipids, HTN, [place], peripheral arterial disease Past Surgical History PTCA, PCI, Right chest tunneled IJ hemodialysis catheter Bilateral mid-tarsal foot amputation Medications: Reviewed. Allergies: Ondansetron Metoclopramide Morphine Prochlorperazine Family History: Diabetes mellitus, kidney disease. Social History: Nonsmoker. No alcohol or illicit drug use. Family History: FH: kidney disease G8 SISTER Family history: Arthritis G8 FATHER Family history: Diabetes mellitus G8 MOTHER G8 FATHER G8 SISTER Allergies: Coded Allergies: Ondansetron (Verified Allergy, Intermediate, Itching, 01/08/23) Metoclopramide (Unverified Allergy, Unknown, 12/19/16) Morphine (Unverified Allergy, Unknown, 12/19/16) Prochlorperazine (Unverified Allergy, Unknown, 12/19/16) Home Meds Active Scripts Pantoprazole Sodium Sesquihydr (Pantoprazole Sodium) 40 Mg Tab, 40 MG PO BID, #60 TAB Prov:MANUEL WAY MD 10/15/16 Reported Medications [insulin] No Conflict Check 01/11/18 Promethazine Hcl (Promethazine Hcl) 25 Mg Tab, 50 MG PO QIDP PRN for NAUSEA OR VOMITING, TAB 10/13/16 Oxycodone Hcl (Roxicodone) 30 Mg Tab, 30 MG PO QIDP PRN for SEVERE PAIN, TAB 01/27/14 Current Medications Current Medications Medications (Trade) Dose Ordered Sig/Clay Route PRN Reason Start Time Stop Time Status Last Admin Atorvastatin Calcium (Lipitor) 80 mg HS PO 08/16/24 22:00 08/16/24 22:10 Clonidine HCl (Catapres Tablet) 0.2 mg Q6H PO 08/16/24 22:00 08/17/24 18:11 Enteral Nutritional Formula (Nepro With Carb Steady) 1,000 ml 30ML/HR GT 08/17/24 14:00 08/17/24 18:53 Acetaminophen (Tylenol Solution Oral) 650 mg Q6HP PRN GT PAIN SCALE 1-3 OR TEMP>100.4 08/17/24 14:00 Vital Signs Vital Signs Date Time Temp Pulse Resp B/P (MAP) Pulse Ox O2 Delivery O2 Flow Rate FiO2 08/17/24 19:30 74 15 169/91 (117) 99 08/17/24 18:34 Nasal Cannula* 2 28 08/17/24 16:00 97.9 97.9 Physical Exam Gen.: Patient lying in bed in no apparent distress. On supplemental oxygen. Head: Normocephalic, atraumatic. Eyes: EOMI/PERRLA. Ears: Normal hearing. Normal anatomy. Neck/trachea: Trachea midline, supple. Nose: Normal external anatomy. Mouth: Moist mucous membranes. Chest: Decreased air entry bilaterally. No wheezing or rhonchi. Cardiovascular: Positive S1, positive S2. Regular rate and rhythm. Abdomen: Positive bowel sounds in all 4 quadrants. Soft, non-tender, non- distended. : Deferred. Rectal: Deferred. Skin: Warm, dry. Intact. Extremities: 2+ radial pulses bilaterally. No lower extremity edema. Neuro: Awake, alert, oriented x3. No gross motor or sensory deficits. Cranial nerves II through XII intact. Gait not assessed. Labs/Diagnostic Data Labs Test 08/17/24 17:32 08/17/24 03:47 08/17/24 03:17 08/16/24 12:08 Range/Units POC Glucose 108 H 70-106 mg/dl White Blood Count 9.5 4.4-10.8 10^3/uL Red Blood Count 3.41 L 4.5-5.90 10^6/uL Hemoglobin 11.0 L 13.5-17.5 g/dL Hematocrit 32.9 L 41.0-53.0 % Mean Corpuscular Volume 96.5 80.0-100.0 fL Mean Corpuscular Hemoglobin 32.3 H 28.0-32.0 pg Mean Corpuscular Hemoglobin Concent 33.5 32.0-36.0 g/dL Red Cell Distribution Width 13.5 11.8-14.3 % Platelet Count 238 140-450 10^3/uL Mean Platelet Volume 9.0 6.9-10.8 fL Neutrophils (%) (Auto) 82.1 H 37.0-80.0 % Lymphocytes (%) (Auto) 8.5 L 10.0-50.0 % Monocytes (%) (Auto) 8.0 0.0-12.0 % Eosinophils (%) (Auto) 0.5 0.0-7.0 % Basophils (%) (Auto) 0.9 0.0-2.0 % Neutrophils # (Auto) 7.8 1.6-8.6 10 ^3/uL Lymphocytes # (Auto) 0.8 0.4-5.4 10 ^3/uL Monocytes # (Auto) 0.8 0-1.3 10 ^3/uL Eosinophils # (Auto) 0 0-0.8 10 ^3/uL Basophils # (Auto) 0.1 0-0.2 10 ^3/uL Nucleated Red Blood Cells 0.0 % Sodium Level 139 136-145 mmol/L Potassium Level 3.9 3.5-5.1 mmol/L Chloride Level 101 98-107 mmol/L Carbon Dioxide Level 20 20-31 mmol/L Anion Gap 18 H 5-15 Blood Urea Nitrogen 26 H 9-23 mg/dL Creatinine 5.46 H 0.700-1.30 mg/dL Glomerular Filtration Rate Calc 12 >90 mL/min BUN/Creatinine Ratio 4.8 L 10.0-20.0 Serum Glucose 118 H 74-106 mg/dL Calcium Level 9.4 8.7-10.4 mg/dL Magnesium Level 2.2 1.6-2.6 mg/dL Total Bilirubin 0.7 0.2-1.0 mg/dL Aspartate Amino Transferase (AST) 22 13-40 U/L Alanine Aminotransferase (ALT) 30 7-40 U/L Alkaline Phosphatase 88 46-116 U/L Total Protein 7.6 5.7-8.2 g/dL Albumin 4.4 3.2-4.8 g/dL Random Vancomycin Level 16.2 H 5-10 ug/mL Blood Gas Specimen Type Arterial Blood Gas Sample Site Right radial Blood Gas Patient Temperature 37.0 Arterial Blood Date Drawn [id number] Arterial Blood pH 7.407 7.350-7.450 Arterial Blood Partial Pressure CO2 34.5 L 35.0-48.0 mmHg Arterial Blood Partial Pressure O2 100.9 83.0-108.0 mmHg Arterial Blood HCO3 21.2 21.0-28.0 mmol/L Arterial Blood Oxygen Saturation 96.8 94.0-98.0 % Arterial Blood Base Excess -2.9 L -2.0-3.0 mmol/L Arterial Blood Oxyhemoglobin 95.6 94.0-98.0 % Arterial Blood Carboxyhemoglobin 0.9 0.5-1.5 % Arterial Blood Methemoglobin 0.3 0.0-1.5 % Obey Test Modified Blood Gas Total Hemoglobin 11.50 L 13.5-17.5 g/dL Blood Gas Liter Flow 4.00 Blood Gas Modality Nasal cannula FiO2 % 36.0 Test 08/15/24 09:59 08/15/24 06:37 08/14/24 10:22 08/12/24 19:40 Range/Units Blood Gas Spontaneous Rate 18 Blood Gas Spontaneous Tidal Volume 832 Blood Gas Pressure Support 8 Blood Gas PEEP or CPAP 5.0 Blood Gas Set Respiration Rate 16.0 Blood Gas Tidal Volume 500.0 Hepatitis B Surface Antigen Negative Negative Urine Color Light-brown Yellow Urine Clarity Turbid H Clear Urine pH 6.0 5.0-9.0 Urine Specific [place] 1.015 1.001-1.035 Urine Protein 2+ H Negative Urine Ketones Negative Negative Urine Blood Negative Negative /uL Urine Nitrite Negative Negative Urine Bilirubin Negative Negative Urine Urobilinogen Normal Negative mg/dL Urine Leukocyte Esterase Negative Negative /uL Urine RBC <1 0 - 3 /hpf Urine Microscopic WBC < 1 0-3 /HPF Urine Squamous Epithelial Cells Mod <5 /hpf Urine Bacteria None seen None Seen /hpf Urine Glucose Normal Normal mg/dL Test 08/12/24 17:27 08/12/24 15:46 08/12/24 14:20 Range/Units Lactic Acid Level 3.6 *H 0.4-2.0 mmol/L Troponin I High Sensitivity 82597 *H </=54 ng/L Blood Gas Critical Value Read Back Yes Blood Gas Notified Whom janessa Head md Blood Gas Notified Time [id number] Blood Gas Notified By rebeka Freire senior salesforce developer Differential Total Cells Counted 100.0 100 Neutrophils % (Manual) 40 37.0-80.0 Band Neutrophils % (Manual) 6 Lymphocytes % (Manual) 41 10.0-50.0 Monocytes % (Manual) 12 0-12 Eosinophils % (Manual) 0 0-7 Basophils % (Manual) 0 0.0-2.0 Metamyelocytes % (manual) 1 Myelocytes % (Manual) 0 Promyelocytes % (Manual) 0 Blast Cells % (Manual) 0 Reactive Lymphocytes 0 Platelet Estimate Adequate Anisocytosis (manual) Slight Macrocytosis Slight Valeria Cells Few Prothrombin Time 12.1 H 9.3-11.8 sec Prothrombin Time INR 1.16 H 0.9-1.15 Activated Partial Thromboplast Time 39.3 H 24.5-34.5 SEC Uric Acid 4.3 3.7-9.2 mg/dL Phosphorus Level 5.6 H 2.4-5.1 mg/dL B-Type Natriuretic Peptide 52.46 0-100 pg/mL Amylase Level 94 30-118 U/L Microbiology Date/Time Source Procedure Growth Status 08/15/24 03:00 Blood Blood Culture - Preliminary NO GROWTH AFTER 48 HOURS OF INCUBATION. Resulted 08/12/24 20:15 Nose MRSA Screen - Final Complete 08/12/24 14:28 Sputum Gram Stain - Final Complete 08/12/24 14:28 Sputum Respiratory Culture - Final Complete Assessment Impression: Acute hypoxemic respiratory failure, status post extubation Status post cardiac arrest requiring CPR Non-ST elevation myocardial infarction End-stage renal disease, on hemodialysis Diabetes mellitus with multiple complications Hx of cerebrovascular accident Plan: Supplemental oxygen Titrate to keep O2 sats above 92%. Patient with weak cough Tube feeds for nutritional support Head of bed elevation Aspiration precautions CT head reviewed, reveals no evidence of acute stroke or intracranial hemorrhage. Follow up Cardiology recs Continue antibiotics Bronchodilators Accu-Cheks, ISS. Hemodialysis per Nephrology Status post hemodialysis yesterday with 2 L removed. Monitor renal function. Monitor electrolytes. Supplement as necessary. Monitor ins and outs. Labs and imaging studies reviewed Patient is full code DVT prophylaxis. Prognosis: Poor given patient's multiple co-morbidities. Condition: Critical Rest of plan per hospitalist and other consultants. A total of 35 minutes of critical care time was spent reviewing the patient record, examining the patient, making a diagnostic and therapeutic plan, discussing this plan with the medical personnel, following up on diagnostic studies and following the patient for clinical stability excluding any and all procedures. At least 50% of this time was spent in direct, [id number] contact. Thank you Dr. Gutierrez, for allowing me to participate in this patient's care. Further recommendations will depend on the patient's clinical course. Please do not hesitate to contact me if you have any questions or concerns. This medical document was created using an electronic medical record system with [employer] dictation system. Although these documentations are being carefully reviewed, there may still be some phonetic and typographical changes. The errors are purely typographical, due to imperfection on the software program, and do not reflect any compromise in the patient's medical care. Plan discussed with: Other (WARREN Clancy/Dr. Gutierrez) RASHID DUENAS MD Aug 17, 2024 19:58
--- NOTE | 2024-08-17 22:16 | DVHINCON2 ---
Date of service: Aug 17, 2024 Referring Physician Cristin Reason for Consultation Patient remains altered after extubation History of Present Illness Mr. Tom is a 49 years old gentleman with a history of hypertension, diabetes, dyslipidemia, chronic kidney failure on hemodialysis, peripheral a rterial disease, chronic leg wound, he was taken to the [facility] ER on 08/12/2024 with altered mental status. At that time, he is awake, oriented to person place, not able to provide history According to ER documentation, he was mentally altered in the hemodialysis center, the patient was bagged when he arrived the ER, and he became pulseless when [place] is [place], the patient was resuscitated in 6 minutes and intubated. With appropriate treatment, the patient was extubated on 08/15/2024, but the patient does not recovered mentally as expected Urinalysis, 08/12/2024: WBC/HB/PLT/MCV, 08/17/2024: 9.5/11/238/96.25 TG/INR/PTT, 08/12/2024: 12.1/1.16/39.3 BUN/CR, 08/17/2024: 26/5.46 Liver function tests, 08/17/2024: Unremarkable CT head, 08/12/2024: 1. No acute intracranial hemorrhage. 2. Multiple hypodense lesion in the left cerebellar hemisphere. Further evaluation with MRI is recommended. 3. Small vessel ischemic/degenerative changes. 4. Generalized brain atrophy. CT head, 08/16/2024: No acute intracranial abnormality Past Medical History Hypertension, diabetes, dyslipidemia, chronic kidney failure hemodialysis, peripheral arterial disease, chronic leg wound Past Surgical History Bilateral metatarsal amputation. Knee surgery Family History: FH: kidney disease G8 SISTER Family history: Arthritis G8 FATHER Family history: Diabetes mellitus G8 MOTHER G8 FATHER G8 SISTER Family History Diabetes, arthritis, kidney disorder Social History Tobacco: Non-Smoker Alcohol: Denies ETOH Use Drugs: Marijuana Lives In: Home Allergies: Coded Allergies: Ondansetron (Verified Allergy, Intermediate, Itching, 01/08/23) Metoclopramide (Unverified Allergy, Unknown, 12/19/16) Morphine (Unverified Allergy, Unknown, 12/19/16) Prochlorperazine (Unverified Allergy, Unknown, 12/19/16) Home Meds Active Scripts Pantoprazole Sodium Sesquihydr (Pantoprazole Sodium) 40 Mg Tab, 40 MG PO BID, #60 TAB Prov:MANUEL WAY MD 10/15/16 Reported Medications [insulin] No Conflict Check 01/11/18 Promethazine Hcl (Promethazine Hcl) 25 Mg Tab, 50 MG PO QIDP PRN for NAUSEA OR VOMITING, TAB 10/13/16 Oxycodone Hcl (Roxicodone) 30 Mg Tab, 30 MG PO QIDP PRN for SEVERE PAIN, TAB 01/27/14 Current Medications Current Medications Medications (Trade) Dose Ordered Sig/Clay Route PRN Reason Start Time Stop Time Status Last Admin Enteral Nutritional Formula (Nepro With Carb Steady) 1,000 ml 30ML/HR GT 08/17/24 14:00 08/17/24 18:53 Acetaminophen (Tylenol Solution Oral) 650 mg Q6HP PRN GT PAIN SCALE 1-3 OR TEMP>100.4 08/17/24 14:00 Review of Systems Unobtainable Vital Signs Vital Signs Date Time Temp Pulse Resp B/P (MAP) Pulse Ox O2 Delivery O2 Flow Rate FiO2 08/17/24 21:43 75 156/86 08/17/24 19:30 15 99 08/17/24 18:34 Nasal Cannula* 2 28 08/17/24 16:00 97.9 97.9 Physical Exam GENERAL EXAM: General: the patient is well developed and nourished. No acute distress. HEENT: Normocephalic, neck is supple, no carotid bruits. No mass. Th RESPIRATORY: Normal respiratory effort with symmetrical lung expansion. Lungs clear to auscultation. CARDIOVASCULAR: Regular rate and rhythm with no murmurs. S1, S2. ABDOMEN: Soft, nontender, normal bowel sound MUSCULOSKELETAL EXAM: Status post bilateral metatarsal amputation in the feet NEUROLOGICAL: MENTAL STATUS: Awake and alert. Oriented to person, places SPEECH, LANGUAGE, HIGHER CORTICAL FUNCTION: no aphasia, he speaks with weak voice. CRANIAL NERVES: #2: Right homonymous hemianopsia. #3,4,6: Pupils are equal, round and reactive. EOMs full and conjugate. No nystagmus. #5: Facial sensation intact in all three divisions bilaterally. Mandibular strength intact. #7: Facial muscles symmetrical and strength intact. #8: Hearing grossly normal to voice. #9,10: Uvula and soft palate rise in the midline. Swallow and voice are normal. #11: Trapezius and sternomastoid strength intact bilaterally. #12: Tongue midline. No fasciculations or atrophy. SENSATION: Sensation to touch and pinprick is normal. MOTOR: Normal tone in the upper and lower extremity. Normal muscle bulk. No fasciculations. No abnormal movements or posturing. Muscle strength of the major groups in the upper extremities is 2-3/5. Muscle strength of the major groups in the lower extremities is 2/5 with the left-sided weaker. REFLEXES: Deep tendon reflexes are symmetrical. No pathological reflexes. CEREBELLAR/COORDINATION: Finger to nose showed intentional tremor in the right hand. GAIT/STATION: deferred. Labs/Diagnostic Data Labs Test 08/17/24 17:32 08/17/24 03:47 08/17/24 03:17 08/16/24 12:08 Range/Units POC Glucose 108 H 70-106 mg/dl White Blood Count 9.5 4.4-10.8 10^3/uL Red Blood Count 3.41 L 4.5-5.90 10^6/uL Hemoglobin 11.0 L 13.5-17.5 g/dL Hematocrit 32.9 L 41.0-53.0 % Mean Corpuscular Volume 96.5 80.0-100.0 fL Mean Corpuscular Hemoglobin 32.3 H 28.0-32.0 pg Mean Corpuscular Hemoglobin Concent 33.5 32.0-36.0 g/dL Red Cell Distribution Width 13.5 11.8-14.3 % Platelet Count 238 140-450 10^3/uL Mean Platelet Volume 9.0 6.9-10.8 fL Neutrophils (%) (Auto) 82.1 H 37.0-80.0 % Lymphocytes (%) (Auto) 8.5 L 10.0-50.0 % Monocytes (%) (Auto) 8.0 0.0-12.0 % Eosinophils (%) (Auto) 0.5 0.0-7.0 % Basophils (%) (Auto) 0.9 0.0-2.0 % Neutrophils # (Auto) 7.8 1.6-8.6 10 ^3/uL Lymphocytes # (Auto) 0.8 0.4-5.4 10 ^3/uL Monocytes # (Auto) 0.8 0-1.3 10 ^3/uL Eosinophils # (Auto) 0 0-0.8 10 ^3/uL Basophils # (Auto) 0.1 0-0.2 10 ^3/uL Nucleated Red Blood Cells 0.0 % Sodium Level 139 136-145 mmol/L Potassium Level 3.9 3.5-5.1 mmol/L Chloride Level 101 98-107 mmol/L Carbon Dioxide Level 20 20-31 mmol/L Anion Gap 18 H 5-15 Blood Urea Nitrogen 26 H 9-23 mg/dL Creatinine 5.46 H 0.700-1.30 mg/dL Glomerular Filtration Rate Calc 12 >90 mL/min BUN/Creatinine Ratio 4.8 L 10.0-20.0 Serum Glucose 118 H 74-106 mg/dL Calcium Level 9.4 8.7-10.4 mg/dL Magnesium Level 2.2 1.6-2.6 mg/dL Total Bilirubin 0.7 0.2-1.0 mg/dL Aspartate Amino Transferase (AST) 22 13-40 U/L Alanine Aminotransferase (ALT) 30 7-40 U/L Alkaline Phosphatase 88 46-116 U/L Total Protein 7.6 5.7-8.2 g/dL Albumin 4.4 3.2-4.8 g/dL Random Vancomycin Level 16.2 H 5-10 ug/mL Blood Gas Specimen Type Arterial Blood Gas Sample Site Right radial Blood Gas Patient Temperature 37.0 Arterial Blood Date Drawn [id number] Arterial Blood pH 7.407 7.350-7.450 Arterial Blood Partial Pressure CO2 34.5 L 35.0-48.0 mmHg Arterial Blood Partial Pressure O2 100.9 83.0-108.0 mmHg Arterial Blood HCO3 21.2 21.0-28.0 mmol/L Arterial Blood Oxygen Saturation 96.8 94.0-98.0 % Arterial Blood Base Excess -2.9 L -2.0-3.0 mmol/L Arterial Blood Oxyhemoglobin 95.6 94.0-98.0 % Arterial Blood Carboxyhemoglobin 0.9 0.5-1.5 % Arterial Blood Methemoglobin 0.3 0.0-1.5 % Obey Test Modified Blood Gas Total Hemoglobin 11.50 L 13.5-17.5 g/dL Blood Gas Liter Flow 4.00 Blood Gas Modality Nasal cannula FiO2 % 36.0 Test 08/15/24 09:59 08/15/24 06:37 08/14/24 10:22 08/12/24 19:40 Range/Units Blood Gas Spontaneous Rate 18 Blood Gas Spontaneous Tidal Volume 832 Blood Gas Pressure Support 8 Blood Gas PEEP or CPAP 5.0 Blood Gas Set Respiration Rate 16.0 Blood Gas Tidal Volume 500.0 Hepatitis B Surface Antigen Negative Negative Urine Color Light-brown Yellow Urine Clarity Turbid H Clear Urine pH 6.0 5.0-9.0 Urine Specific [place] 1.015 1.001-1.035 Urine Protein 2+ H Negative Urine Ketones Negative Negative Urine Blood Negative Negative /uL Urine Nitrite Negative Negative Urine Bilirubin Negative Negative Urine Urobilinogen Normal Negative mg/dL Urine Leukocyte Esterase Negative Negative /uL Urine RBC <1 0 - 3 /hpf Urine Microscopic WBC < 1 0-3 /HPF Urine Squamous Epithelial Cells Mod <5 /hpf Urine Bacteria None seen None Seen /hpf Urine Glucose Normal Normal mg/dL Test 08/12/24 17:27 08/12/24 15:46 08/12/24 14:20 Range/Units Lactic Acid Level 3.6 *H 0.4-2.0 mmol/L Troponin I High Sensitivity 12527 *H </=54 ng/L Blood Gas Critical Value Read Back Yes Blood Gas Notified Whom janessa Head md Blood Gas Notified Time [id number] Blood Gas Notified By rebeka Freire rrt Differential Total Cells Counted 100.0 100 Neutrophils % (Manual) 40 37.0-80.0 Band Neutrophils % (Manual) 6 Lymphocytes % (Manual) 41 10.0-50.0 Monocytes % (Manual) 12 0-12 Eosinophils % (Manual) 0 0-7 Basophils % (Manual) 0 0.0-2.0 Metamyelocytes % (manual) 1 Myelocytes % (Manual) 0 Promyelocytes % (Manual) 0 Blast Cells % (Manual) 0 Reactive Lymphocytes 0 Platelet Estimate Adequate Anisocytosis (manual) Slight Macrocytosis Slight [place] Cells Few Prothrombin Time 12.1 H 9.3-11.8 sec Prothrombin Time INR 1.16 H 0.9-1.15 Activated Partial Thromboplast Time 39.3 H 24.5-34.5 SEC Uric Acid 4.3 3.7-9.2 mg/dL Phosphorus Level 5.6 H 2.4-5.1 mg/dL B-Type Natriuretic Peptide 52.46 0-100 pg/mL Amylase Level 94 30-118 U/L Microbiology Date/Time Source Procedure Growth Status 08/15/24 03:00 Blood Blood Culture - Preliminary NO GROWTH AFTER 48 HOURS OF INCUBATION. Resulted 08/12/24 20:15 Nose MRSA Screen - Final Complete 08/12/24 14:28 Sputum Gram Stain - Final Complete 08/12/24 14:28 Sputum Respiratory Culture - Final Complete Assessment Altered mental status, improving Hypoxic encephalopathy Metabolic encephalopathy Status post cardiopulmonary arrest Status post CPR Right homonymous hemianopsia/rule out right visual neglect Right upper extremity intentional tremor Left leg weakness Strokes Plan/Recommendation Monitoring Supportive treatment Lipitor profile EEG Carotid Doppler MICHAEL MRI brain scan Aspirin 81 mg daily Brilinta 90 mg b.i.d. Lipitor 80 mg daily DVT prophylaxis/heparin 5000 units subQ q.12 hours More recommendation per clinical course Condition: Critical Prognosis: Poor This medical document was created using an electronic medical record system with [employer] computerized dictation system. Although this document has been carefully reviewed, there may still be some phonetic and typographical errors. These areas are purely typographical due to imperfections of the software programs, and do not reflect any compromise in the patient's medical care. Plan discussed with: Other EULALIO TOBIAS MD Aug 17, 2024 22:16
[2024-08-17] MEDS ORDERED: LORazepam 2MG/ML-1ML VIAL IV PRN (23:00)
[2024-08-17 23:22] LABS: LDL Cholesterol 77 mg/dL (< 100)
[2024-08-17 23:23] LABS: Cholesterol 145 mg/dL (< 200); HDL Cholesterol 41 mg/dL (40-59)
[2024-08-17 23:29] LABS: Triglycerides 172 mg/dL (< 150)
[2024-08-18] VITALS (76 sets, daily range): BP systolic 100–169; BP diastolic 59–110; PULSE 61–94; RESP 9–25; TEMP 98–99.7; O2SAT 97–100
[2024-08-18 04:06] LABS: Basophils # (auto) 0.1 10 ^3/uL (0-0.2); Basophils % (auto) 1.3 % (0.0-2.0); Eosinophils # (auto) 0.1 10 ^3/uL (0-0.8); Eosinophils % (auto) 0.8 % (0.0-7.0); Hematocrit 33.6 % (41.0-53.0); Hemoglobin 11.2 g/dL (13.5-17.5); Lymphocytes # (auto) 1.3 10 ^3/uL (0.4-5.4); Lymphocytes % (auto) 14.3 % (10.0-50.0); Mean Corpuscular Hemoglobin 31.9 pg (28.0-32.0); Mean Corpuscular Hgb Conc. 33.3 g/dL (32.0-36.0); Monocytes % (auto) 10.7 % (0.0-12.0); Neutrophils # (auto) 6.7 10 ^3/uL (1.6-8.6); Neutrophils % (auto) 72.9 % (37.0-80.0); Nucleated Red Blood Cells % 0.3 %; Platelet Count (auto) 211 10^3/uL (140-450); Red Cell Distribution Width 13.5 % (11.8-14.3); White Blood Cell 9.1 10^3/uL (4.4-10.8)
[2024-08-18 04:16] LABS: Chloride 100 mmol/L (98-107); Potassium 3.9 mmol/L (3.5-5.1); Sodium 139 mmol/L (136-145)
[2024-08-18 04:17] LABS: Anion Gap 16 (5-15); Carbon Dioxide 23 mmol/L (20-31)
[2024-08-18 04:22] LABS: Magnesium 2.3 mg/dL (1.6-2.6)
[2024-08-18 04:23] LABS: Blood Urea Nitrogen 41 mg/dL (9-23); Glucose 115 mg/dL (74-106)
[2024-08-18] MEDS: SODIUM CHL 0.9% 1000 ML BAG XX ONE (09:45)
--- NOTE | 2024-08-18 12:39 | DVHPN2 ---
Subjective More alert and oriented Sounds stronger when he speaks Able to move extremities Able to swallow now Changes from previous H/P or p: Changes Objective Vitals Vital Signs Date Time Temp Pulse Resp B/P (MAP) Pulse Ox O2 Delivery O2 Flow Rate FiO2 08/18/24 12:00 14 100 Nasal Cannula* 3 32 08/18/24 11:30 72 111/72 (85) 08/18/24 09:00 98.0 98.0 Intake/Output Intake and Output 08/18/24 07:00 Intake Total 820.0 ml Output Total 650 ml Balance 170.0 ml Intake Oral 240 ml IV Total 250.0 ml Tube Feeding 330 ml Output Urine Total 650 ml General Appearance: Alert, Other Lungs: Clear to auscultation, Normal air movement Cardiovascular: Regular rate, Normal S1, Normal S2 Abdomen: Normal bowel sounds, Soft, No tenderness Extremities: No edema Medications Current Medications Medications Dose Ordered Sig/Clay Route Start Time Stop Time Status Last Admin Dose Admin Epinephrine HCl 250 ml @ 7.5 mls/hr Q24H IV 08/12/24 14:45 Norepinephrine Bitartrate 250 ml @ 3.75 mls/hr Q24H IV 08/12/24 14:45 08/14/24 08:44 3.75 MLS/HR Ticagrelor 90 mg BID PO 08/13/24 07:30 08/18/24 10:38 90 MG Aspirin 81 mg DAILY PO 08/13/24 10:00 08/18/24 10:38 81 MG Diagnostic Test (Pha) 1 strip Q6HR 08/13/24 12:00 08/18/24 12:01 1 STRIP Insulin Human Regular Q6HR SC 08/13/24 12:00 08/18/24 12:06 2 UNITS Dextrose 50 ml UD PRN IV 08/13/24 09:00 Vancomycin HCl 0 ml @ 0 mls/hr UD IV 08/13/24 12:00 Pantoprazole Sodium 40 mg DAILY IV 08/14/24 10:00 08/18/24 10:37 40 MG Cefepime HCl 50 ml @ 12.5 mls/hr DAILY@1800 IV 08/14/24 18:00 08/17/24 17:35 12.5 MLS/HR Hydralazine HCl 10 mg Q6HP PRN IV 08/13/24 20:45 08/17/24 13:44 10 MG Heparin Sodium (Porcine) 5,000 units Q12HR SC 08/14/24 22:00 08/18/24 10:51 5,000 UNITS Labetalol HCl 10 mg Q4HPRN PRN IV 08/14/24 20:00 08/18/24 06:04 10 MG Carvedilol 6.25 mg Q12HR PO 08/15/24 10:00 08/17/24 21:43 6.25 MG Albuterol 2.5 mg Q4HR NEB 08/16/24 14:00 08/18/24 09:51 2.5 MG Ipratropium [place] 0.5 mg Q4HR NEB 08/16/24 14:00 08/18/24 09:51 0.5 MG Atorvastatin Calcium 80 mg HS PO 08/16/24 22:00 08/17/24 21:42 80 MG Clonidine HCl 0.2 mg Q6H PO 08/16/24 22:00 08/18/24 04:22 0.2 MG Acetaminophen 650 mg Q6HP PRN GT 08/17/24 14:00 Lorazepam 1 mg ONCE PRN IV 08/17/24 23:00 Laboratory Results Laboratory Tests 08/18/24 03:38 Chemistry Test 08/18/24 03:38 Calcium Level 9.0 mg/dL (8.7-10.4) Magnesium Level 2.3 mg/dL (1.6-2.6) Urinalysis Test 08/12/24 19:40 Urine Color Light-brown (Yellow) Urine Clarity Turbid (Clear) H Urine pH 6.0 (5.0-9.0) Urine Specific [place] 1.015 (1.001-1.035) Urine Protein 2+ (Negative) H Urine Ketones Negative (Negative) Urine Blood Negative /uL (Negative) Urine Nitrite Negative (Negative) Urine Bilirubin Negative (Negative) Urine Urobilinogen Normal mg/dL (Negative) Urine Leukocyte Esterase Negative /uL (Negative) Urine RBC <1 /hpf (0 - 3) Urine Microscopic WBC < 1 /HPF (0-3) Urine Squamous Epithelial Cells Mod /hpf (<5) Urine Bacteria None seen /hpf (None Seen) Urine Glucose Normal mg/dL (Normal) Microbiology Microbiology Date/Time Source Procedure Growth Status 08/15/24 03:00 Blood Blood Culture - Preliminary NO GROWTH AFTER 72 HOURS OF INCUBATION. Resulted 08/12/24 20:15 Nose MRSA Screen - Final Complete 08/12/24 14:28 Sputum Gram Stain - Final Complete 08/12/24 14:28 Sputum Respiratory Culture - Final Complete Assessment/Plan Assessment/Plan Metabolic encephalopathy most likely residual of sedation Acute hypoxic respiratory failure, status post extubation since yesterday Old CVA Type 2 diabetes End-stage renal disease on hemodialysis Status post bilateral partial feet amputations NSTEMI status post stenting of the circumflex artery on aspirin and Brilinta Status post CPR Anemia of chronic kidney disease Plan Repeat CT scan of the head was done today was negative for acute changes, he has old CVA in the left cerebellum IV antibiotics cefepime and vancomycin Continue aspirin and Brilinta The patient is not able to swallow and therefore we will try to do a swallow evaluation but if not possible then we will insert an NG tube so the patient can have his aspirin and Brilinta Discussed with the daughter at the bedside and the on the phone Monitor closely 08/17/2024: Continue IV antibiotics cefepime and vancomycin Continue aspirin and Brilinta with the NG tube Start tube feeding Dysphagia: Continue NG tube and start feeding For dialysis per Nephrology 08/18/2024: Discontinue the NG tube Start pureed diet Continue aspirin and Brilinta Physical therapy evaluation Downgrade to the FITO IV antibiotics cefepime and vancomycin Dialysis per Nephrology Plan discussed with: Patient My Orders Orders - MECHE TEIXEIRA MD Procedure Category Date Status Time Acetaminophen PHA 08/17/24 In Process Solution Oral 14:00 Renal DIET 08/18/24 Transmitted Standard(2gna,3gk,Lopho) Lunch Discontinue Ng ORDERS 08/18/24 Transmitted 12:15 Date of Service: Aug 18, 2024 Billing Provider: MECHE TEIXEIRA MD Common Visit Codes: [id number] CARE 30-74 MIN MECHE TEIXEIRA MD Aug 18, 2024 12:39
--- NOTE | 2024-08-18 13:14 | DVH ---
CAROTID DOPPLER ULTRASOUND HISTORY: CVA COMPARISON: None TECHNIQUE: Real time bagley scale, color Doppler, and spectral duplex images are obtained through the c arotid and vertebral arteries. Findings: Peak systolic velocity right internal carotid artery is 108 cm/s and right common carotid artery is 7 0 cm/s. Ratio is 1.5. Antegrade flow noted in right vertebral artery. No significant atherosclerotic plaque noted within the right carotid arterial system. Peak systolic velocity left internal carotid artery is 81 cm/s and left common carotid artery is 93 c m/s. Ratio is 0.9. Antegrade flow noted in left vertebral artery. No significant atherosclerotic plaq ue noted within the left carotid arterial system. Impression: 1. No evidence of hemodynamically significant stenosis within the bilateral carotid arterial systems. 2. Antegrade flow within bilateral vertebral arteries.
--- NOTE | 2024-08-18 14:50 | DVHPN2 ---
Progress Note Date Seen: Aug 18, 2024 Medical Necessity Reason Pt with a Central, PICC or Fol: No Subjective Review of Systems Pt had HD today, tolerated well. Patient reports: No new complaints, Feels better Objective vital signs Vital Sign Date Time Temp Pulse Resp B/P (MAP) Pulse Ox O2 Delivery O2 Flow Rate FiO2 08/18/24 12:00 14 100 Nasal Cannula* 3 32 08/18/24 11:30 72 111/72 (85) 08/18/24 09:00 98.0 98.0 Total Intake and Output 08/17/24 08/17/24 08/18/24 15:00 23:00 07:00 Intake Total 490.0 ml 330 ml Output Total 300 ml 350 ml Balance 190.0 ml -20 ml medications Current Medications Medications Dose Ordered Sig/Clay Route Start Time Stop Time Status Last Admin Dose Admin Epinephrine HCl 250 ml @ 7.5 mls/hr Q24H IV 08/12/24 14:45 Norepinephrine Bitartrate 250 ml @ 3.75 mls/hr Q24H IV 08/12/24 14:45 08/14/24 08:44 3.75 MLS/HR Ticagrelor 90 mg BID PO 08/13/24 07:30 08/18/24 10:38 90 MG Aspirin 81 mg DAILY PO 08/13/24 10:00 08/18/24 10:38 81 MG Diagnostic Test (Pha) 1 strip Q6HR 08/13/24 12:00 08/18/24 12:01 1 STRIP Insulin Human Regular Q6HR SC 08/13/24 12:00 08/18/24 12:06 2 UNITS Dextrose 50 ml UD PRN IV 08/13/24 09:00 Vancomycin HCl 0 ml @ 0 mls/hr UD IV 08/13/24 12:00 Pantoprazole Sodium 40 mg DAILY IV 08/14/24 10:00 08/18/24 10:37 40 MG Cefepime HCl 50 ml @ 12.5 mls/hr DAILY@1800 IV 08/14/24 18:00 08/17/24 17:35 12.5 MLS/HR Hydralazine HCl 10 mg Q6HP PRN IV 08/13/24 20:45 08/17/24 13:44 10 MG Heparin Sodium (Porcine) 5,000 units Q12HR SC 08/14/24 22:00 08/18/24 10:51 5,000 UNITS Labetalol HCl 10 mg Q4HPRN PRN IV 08/14/24 20:00 08/18/24 06:04 10 MG Carvedilol 6.25 mg Q12HR PO 08/15/24 10:00 08/17/24 21:43 6.25 MG Albuterol 2.5 mg Q4HR NEB 08/16/24 14:00 08/18/24 14:20 2.5 MG Ipratropium [place] 0.5 mg Q4HR NEB 08/16/24 14:00 08/18/24 14:20 0.5 MG Atorvastatin Calcium 80 mg HS PO 08/16/24 22:00 08/17/24 21:42 80 MG Clonidine HCl 0.2 mg Q6H PO 08/16/24 22:00 08/18/24 04:22 0.2 MG Acetaminophen 650 mg Q6HP PRN GT 08/17/24 14:00 Lorazepam 1 mg ONCE PRN IV 08/17/24 23:00 Examination Gen: NAD Lungs: Bilateral air entry, no rales Heart: RRR, normal S1 and S2 Ext: No edema Neuro: A&O x3 laboratory and microbiology Laboratory Tests 08/18/24 03:38 Test 08/18/24 03:38 Range/Units Serum Glucose 115 H 74-106 mg/dL Microbiology Date/Time Source Procedure Growth Status 08/15/24 03:00 Blood Blood Culture - Preliminary NO GROWTH AFTER 72 HOURS OF INCUBATION. Resulted 08/12/24 20:15 Nose MRSA Screen - Final Complete 08/12/24 14:28 Sputum Gram Stain - Final Complete 08/12/24 14:28 Sputum Respiratory Culture - Final Complete Labs and/or images reviewed: Labs reviewed by me Problem List/Assessment/Plan Problem List/Assessment/Plan IMP ESRD on HD- last HD 08/18 Acute respiratory failure Status post cardiac arrest Acute PR status post PTCA/PCI 08/12 DM type II Hyperglycemia Septic shock Anemia of CKD REC: Chemistry panel 08/19 Daily evaluation for [employer] Strict I&Os Agree with Renal diet We will continue to follow Case discussed with Dr. Sid Do Plan discussed with: Patient, Other (Family) Dietary Evaluation Review Comments: 1. Pt needs a high protein lower calorie formula d/t Propofol fusiion. Recommend Vital High protein TF @50ml/hr, providing 105 g Protein, 1200kcal. meeting his protein needs @96%, energy needs @95% after adding Propofol@9.7ml/hr for 24 hours. 2. TPN perpharmacy if EN not tolerated. Expected Outcomes/Goals: Reassess needs when extubated KAMALA [employer] Aug 18, 2024 14:50
--- NOTE | 2024-08-18 15:33 | DVHPN2 ---
Progress Note - Dictate Date Seen: Aug 18, 2024 Medical Necessity Reason Pt with a Central, PICC or Fol: No Subjective Mr. Tom is a 49 years old gentleman with a history of hypertension, diabetes, dyslipidemia, chronic kidney failure on hemodialysis, peripheral arterial disease, chronic leg wound, he was taken to the [facility] ER on 08/12/2024 with altered mental status I have seen and examined the patient, I have discussed with his nurse, in the room. He is awake, oriented to person, place, he follows verbal commands Urinalysis, 08/12/2024: WBC/HB/PLT/MCV, 08/17/2024: 9.5/11/238/96.25 TG/INR/PTT, 08/12/2024: 12.1/1.16/39.3 BUN/CR, 08/17/2024: 26/5.46 Liver function tests, 08/17/2024: Unremarkable Troponin one high sensitivity, 08/13/2019 5:24 a.m., [id number], [id number] Carotid Doppler, 08/18/2024: 1. No evidence of hemodynamically significant stenosis within the bilateral carotid arterial systems. 2. Antegrade flow within bilateral vertebral arteries. CT head, 08/12/2024: 1. No acute intracranial hemorrhage. 2. Multiple hypodense lesion in the left cerebellar hemisphere. Further evaluation with MRI is recommended. 3. Small vessel ischemic/degenerative changes. 4. Generalized brain atrophy. CT head, 08/16/2024: No acute intracranial abnormality vital signs Vital Sign Date Time Temp Pulse Resp B/P (MAP) Pulse Ox O2 Delivery O2 Flow Rate FiO2 08/18/24 15:00 83 14 128/82 (97) 100 08/18/24 14:00 Nasal Cannula* 2 28 08/18/24 09:00 98.0 98.0 Total Intake and Output 08/17/24 08/17/24 08/18/24 15:00 23:00 07:00 Intake Total 490.0 ml 330 ml Output Total 300 ml 350 ml Balance 190.0 ml -20 ml medications Current Medications Medications Dose Ordered Sig/Clay Route Start Time Stop Time Status Last Admin Dose Admin Epinephrine HCl 250 ml @ 7.5 mls/hr Q24H IV 08/12/24 14:45 Norepinephrine Bitartrate 250 ml @ 3.75 mls/hr Q24H IV 08/12/24 14:45 08/14/24 08:44 3.75 MLS/HR Ticagrelor 90 mg BID PO 08/13/24 07:30 08/18/24 10:38 90 MG Aspirin 81 mg DAILY PO 08/13/24 10:00 08/18/24 10:38 81 MG Diagnostic Test (Pha) 1 strip Q6HR 08/13/24 12:00 08/18/24 12:01 1 STRIP Insulin Human Regular Q6HR SC 08/13/24 12:00 08/18/24 12:06 2 UNITS Dextrose 50 ml UD PRN IV 08/13/24 09:00 Vancomycin HCl 0 ml @ 0 mls/hr UD IV 08/13/24 12:00 Pantoprazole Sodium 40 mg DAILY IV 08/14/24 10:00 08/18/24 10:37 40 MG Cefepime HCl 50 ml @ 12.5 mls/hr DAILY@1800 IV 08/14/24 18:00 08/17/24 17:35 12.5 MLS/HR Hydralazine HCl 10 mg Q6HP PRN IV 08/13/24 20:45 08/17/24 13:44 10 MG Heparin Sodium (Porcine) 5,000 units Q12HR SC 08/14/24 22:00 08/18/24 10:51 5,000 UNITS Labetalol HCl 10 mg Q4HPRN PRN IV 08/14/24 20:00 08/18/24 06:04 10 MG Carvedilol 6.25 mg Q12HR PO 08/15/24 10:00 08/17/24 21:43 6.25 MG Albuterol 2.5 mg Q4HR NEB 08/16/24 14:00 08/18/24 14:20 2.5 MG Ipratropium [place] 0.5 mg Q4HR NEB 08/16/24 14:00 08/18/24 14:20 0.5 MG Atorvastatin Calcium 80 mg HS PO 08/16/24 22:00 08/17/24 21:42 80 MG Clonidine HCl 0.2 mg Q6H PO 08/16/24 22:00 08/18/24 04:22 0.2 MG Acetaminophen 650 mg Q6HP PRN GT 08/17/24 14:00 Lorazepam 1 mg ONCE PRN IV 08/17/24 23:00 objective General: the patient is well developed and nourished. No acute distress. MENTAL STATUS: Subjective SPEECH, LANGUAGE, HIGHER CORTICAL FUNCTION: no aphasia, he speaks with weak voice. CRANIAL NERVES: Possible writing visual neglect. Pupils are equal, round and reactive. EOMs full and conjugate. No nystagmus. Facial sensation intact in all three divisions bilaterally. Mandibular strength intact. Facial muscles symmetrical and strength intact. SENSATION: Sensation to touch and pinprick is normal. MOTOR: Normal tone in the upper and lower extremity. Normal muscle bulk. No fasciculations. No abnormal movements or posturing. Muscle strength of the major groups in the upper extremities is 3/5, there is left arm drift but gripping feels weaker in the right-handed. Muscle strength of the major groups in the lower extremities is 2-3/5 with the left-sided weaker. REFLEXES: Deep tendon reflexes are symmetrical. No pathological reflexes. CEREBELLAR/COORDINATION: Finger to nose showed intentional tremor in the right hand. GAIT/STATION: deferred. laboratory and microbiology Laboratory Tests 08/18/24 03:38 Test 08/18/24 03:38 Range/Units Serum Glucose 115 H 74-106 mg/dL Problem List Altered mental status, improving Hypoxic encephalopathy Metabolic encephalopathy Status post cardiopulmonary arrest Status post CPR Right homonymous hemianopsia vs right visual neglect Right upper extremity intentional tremor Left leg weakness Elevated troponin one/acute stroke Strokes Assessment/Plan Monitoring Supportive treatment Lipitor profile EEG MICHAEL MRI brain scan (not a candidate secondary to heart stend on 08/12/2024) Aspirin 81 mg daily Brilinta 90 mg b.i.d. Lipitor 80 mg daily DVT prophylaxis/heparin 5000 units subQ q.12 hours More recommendation per clinical course This medical document was created using an electronic medical record system with [employer] dictation system. Although this document has been carefully reviewed, there may still be some phonetic and typographical errors. These areas are purely typographical due to imperfections of the software programs, and do not reflect any compromise in the patient's medical care. Prognosis poor Dietary Evaluation Review Comments: 1. Pt needs a high protein lower calorie formula d/t Propofol fusiion. Recommend Vital High protein TF @50ml/hr, providing 105 g Protein, 1200kcal. meeting his protein needs @96%, energy needs @95% after adding Propofol@9.7ml/hr for 24 hours. 2. TPN perpharmacy if EN not tolerated. Expected Outcomes/Goals: Reassess needs when extubated Plan discussed with: Spouse, Other Critical Care Time(min): 35 EULALIO TOBIAS MD Aug 18, 2024 15:33
--- NOTE | 2024-08-18 20:20 | DVHPN2 ---
Progress Note - Dictate Date Seen: Aug 18, 2024 Medical Necessity Reason Pt with a Central, PICC or Fol: No Subjective [facility] Patient seen and examined at bedside. Remains on supplemental oxygen Overnight events reviewed. vital signs Vital Sign Date Time Temp Pulse Resp B/P (MAP) Pulse Ox O2 Delivery O2 Flow Rate FiO2 08/18/24 18:45 83 18 100 08/18/24 18:39 Nasal Cannula* 2 28 08/18/24 18:30 142/84 (103) 08/18/24 17:00 99.7 99.7 Total Intake and Output 08/17/24 08/17/24 08/18/24 15:00 23:00 07:00 Intake Total 490.0 ml 330 ml Output Total 300 ml 350 ml Balance 190.0 ml -20 ml medications Current Medications Medications Dose Ordered Sig/Clay Route Start Time Stop Time Status Last Admin Dose Admin Epinephrine HCl 250 ml @ 7.5 mls/hr Q24H IV 08/12/24 14:45 Norepinephrine Bitartrate 250 ml @ 3.75 mls/hr Q24H IV 08/12/24 14:45 08/14/24 08:44 3.75 MLS/HR Ticagrelor 90 mg BID PO 08/13/24 07:30 08/18/24 10:38 90 MG Aspirin 81 mg DAILY PO 08/13/24 10:00 08/18/24 10:38 81 MG Diagnostic Test (Pha) 1 strip Q6HR 08/13/24 12:00 08/18/24 17:47 1 STRIP Insulin Human Regular Q6HR SC 08/13/24 12:00 08/18/24 17:56 2 UNITS Dextrose 50 ml UD PRN IV 08/13/24 09:00 Vancomycin HCl 0 ml @ 0 mls/hr UD IV 08/13/24 12:00 Pantoprazole Sodium 40 mg DAILY IV 08/14/24 10:00 08/18/24 10:37 40 MG Cefepime HCl 50 ml @ 12.5 mls/hr DAILY@1800 IV 08/14/24 18:00 08/18/24 17:50 12.5 MLS/HR Hydralazine HCl 10 mg Q6HP PRN IV 08/13/24 20:45 08/17/24 13:44 10 MG Heparin Sodium (Porcine) 5,000 units Q12HR SC 08/14/24 22:00 08/18/24 10:51 5,000 UNITS Labetalol HCl 10 mg Q4HPRN PRN IV 08/14/24 20:00 08/18/24 06:04 10 MG Carvedilol 6.25 mg Q12HR PO 08/15/24 10:00 08/17/24 21:43 6.25 MG Albuterol 2.5 mg Q4HR NEB 08/16/24 14:00 08/18/24 18:39 2.5 MG Ipratropium [place] 0.5 mg Q4HR NEB 08/16/24 14:00 08/18/24 18:39 0.5 MG Atorvastatin Calcium 80 mg HS PO 08/16/24 22:00 08/17/24 21:42 80 MG Clonidine HCl 0.2 mg Q6H PO 08/16/24 22:00 08/18/24 04:22 0.2 MG Acetaminophen 650 mg Q6HP PRN GT 08/17/24 14:00 Lorazepam 1 mg ONCE PRN IV 08/17/24 23:00 objective Gen.: Patient lying in bed in no apparent distress. On supplemental oxygen. Head: Normocephalic, atraumatic. Eyes: EOMI/PERRLA. Ears: Normal hearing. Normal anatomy. Neck/trachea: Trachea midline, supple. Nose: Normal external anatomy. Mouth: Moist mucous membranes. Chest: Decreased air entry bilaterally. No wheezing or rhonchi. Cardiovascular: Positive S1, positive S2. Regular rate and rhythm. Abdomen: Positive bowel sounds in all 4 quadrants. Soft, non-tender, non- distended. : Deferred. Rectal: Deferred. Skin: Warm, dry. Intact. Extremities: 2+ radial pulses bilaterally. No lower extremity edema. Neuro: Awake, alert, oriented x3. No gross motor or sensory deficits. Cranial nerves II through XII intact. Gait not assessed. laboratory and microbiology Laboratory Tests 08/18/24 03:38 Test 08/18/24 03:38 Range/Units Serum Glucose 115 H 74-106 mg/dL Assessment/Plan Impression: Acute hypoxemic respiratory failure, status post extubation Status post cardiac arrest requiring CPR Non-ST elevation myocardial infarction End-stage renal disease, on hemodialysis Diabetes mellitus with multiple complications Hx of cerebrovascular accident Events: Remains on supplemental oxygen, 2 LPM NC Taper O2 as tolerated NGT was removed. S/p hemodialysis Nephrology recs appreciated. Continue bronchodilators Continue antibiotics Cardiology recs appreciated. Hemodialysis per Nephrology Monitor renal function. Monitor electrolytes. Supplement as necessary. Monitor ins and outs. Protonix for GI ppx Labs and imaging reviewed. Rest of plan as noted below. Plan: Supplemental oxygen Titrate to keep O2 sats above 92%. Patient with weak cough Tube feeds for nutritional support Head of bed elevation Aspiration precautions CT head reviewed, reveals no evidence of acute stroke or intracranial hemorrhage. Follow up Cardiology recs Continue antibiotics Bronchodilators Accu-Cheks, ISS. Hemodialysis per Nephrology Monitor renal function. Monitor electrolytes. Supplement as necessary. Monitor ins and outs. Labs and imaging studies reviewed Patient is full code DVT prophylaxis. Prognosis: Poor given patient's multiple co-morbidities. Condition: Critical Rest of plan per hospitalist and other consultants. A total of 35 minutes of critical care time was spent reviewing the patient record, examining the patient, making a diagnostic and therapeutic plan, discussing this plan with the medical personnel, following up on diagnostic studies and following the patient for clinical stability excluding any and all procedures. At least 50% of this time was spent in direct, [id number] contact. Thank you Dr. Gutierrez, for allowing me to participate in this patient's care. Further recommendations will depend on the patient's clinical course. Please do not hesitate to contact me if you have any questions or concerns. This medical document was created using an electronic medical record system with [employer] dictation system. Although these documentations are being carefully reviewed, there may still be some phonetic and typographical changes. The errors are purely typographical, due to imperfection on the software program, and do not reflect any compromise in the patient's medical care. Dietary Evaluation Review Comments: 1. Pt needs a high protein lower calorie formula d/t Propofol fusiion. Recommend Vital High protein TF @50ml/hr, providing 105 g Protein, 1200kcal. meeting his protein needs @96%, energy needs @95% after adding Propofol@9.7ml/hr for 24 hours. 2. TPN perpharmacy if EN not tolerated. Expected Outcomes/Goals: Reassess needs when extubated Plan discussed with: Other (WARREN Uribe) Critical Care Time(min): 35 RASHID DUENAS MD Aug 18, 2024 20:20
[2024-08-19] VITALS (57 sets, daily range): BP systolic 87–162; BP diastolic 56–95; PULSE 58–86; RESP 10–22; TEMP 98.2–98.5; O2SAT 97–100
[2024-08-19 04:08] LABS: Basophils # (auto) 0.1 10 ^3/uL (0-0.2); Basophils % (auto) 0.9 % (0.0-2.0); Eosinophils # (auto) 0.1 10 ^3/uL (0-0.8); Eosinophils % (auto) 1.4 % (0.0-7.0); Hematocrit 32.8 % (41.0-53.0); Hemoglobin 11.2 g/dL (13.5-17.5); Lymphocytes # (auto) 1.7 10 ^3/uL (0.4-5.4); Lymphocytes % (auto) 18.8 % (10.0-50.0); Mean Corpuscular Hemoglobin 32.5 pg (28.0-32.0); Mean Corpuscular Hgb Conc. 34.2 g/dL (32.0-36.0); Mean Corpuscular Volume 94.9 fL (80.0-100.0); Monocytes # (auto) 1.3 10 ^3/uL (0-1.3); Monocytes % (auto) 13.9 % (0.0-12.0); Neutrophils # (auto) 5.9 10 ^3/uL (1.6-8.6); Nucleated Red Blood Cells % 0.2 %; Platelet Count (auto) 224 10^3/uL (140-450); Red Blood Cells 3.46 10^6/uL (4.5-5.90); Red Cell Distribution Width 13.3 % (11.8-14.3)
[2024-08-19 04:15] LABS: Alanine Aminotransferase 15 U/L (7-40); Albumin 4.7 g/dL (3.2-4.8); Alkaline Phosphatase 80 U/L (46-116); Anion Gap 14 (5-15); BUN/Creatinine Ratio 5.5 (10.0-20.0); Calcium 9.3 mg/dL (8.7-10.4); Carbon Dioxide 27 mmol/L (20-31); Magnesium 2.1 mg/dL (1.6-2.6); Total Protein 7.8 g/dL (5.7-8.2)
[2024-08-19 04:16] LABS: Bilirubin, Total 0.7 mg/dL (0.2-1.0)
[2024-08-19 04:23] LABS: Sodium 135 mmol/L (136-145)
[2024-08-19 04:24] LABS: Blood Urea Nitrogen 30 mg/dL (9-23); Chloride 94 mmol/L (98-107); Glucose 124 mg/dL (74-106); Potassium 3.3 mmol/L (3.5-5.1)
[2024-08-19 04:39] LABS: Aspartate Aminotransferase 22 U/L (13-40)
--- NOTE | 2024-08-19 09:04 | DVHPN2 ---
Progress Note - Dictate Date Seen: Aug 19, 2024 Medical Necessity Reason Pt with a Central, PICC or Fol: No Subjective Mr. Tom is a 49 years old gentleman with a history of hypertension, diabetes, dyslipidemia, chronic kidney failure on hemodialysis, peripheral arterial disease, chronic leg wound, he was taken to the [facility] ER on 08/12/2024 with altered mental status I have seen and examined the patient, I have discussed with his nurse, in the room. He is awake, oriented to person, place, he follows verbal commands, speech is better Urinalysis, 08/12/2024: WBC/HB/PLT/MCV, 08/17/2024: 9.5/11/238/96.25 TG/INR/PTT, 08/12/2024: 12.1/1.16/39.3 BUN/CR, 08/17/2024: 26/5.46 Liver function tests, 08/17/2024: Unremarkable Troponin one high sensitivity, 08/12/2024: 24, 5974, 29249 TG/HDL/LDL/HDL, 08/17/2024: 172/145/77/41 Carotid Doppler, 08/18/2024: 1. No evidence of hemodynamically significant stenosis within the bilateral carotid arterial systems. 2. Antegrade flow within bilateral vertebral arteries. CT head, 08/12/2024: 1. No acute intracranial hemorrhage. 2. Multiple hypodense lesion in the left cerebellar hemisphere. Further evaluation with MRI is recommended. 3. Small vessel ischemic/degenerative changes. 4. Generalized brain atrophy. CT head, 08/16/2024: No acute intracranial abnormality vital signs Vital Sign Date Time Temp Pulse Resp B/P (MAP) Pulse Ox O2 Delivery O2 Flow Rate FiO2 08/19/24 07:00 58 13 107/72 (84) 100 08/19/24 06:14 Nasal Cannula* 2 28 08/19/24 04:00 98.3 98.3 Total Intake and Output 08/18/24 08/18/24 08/19/24 15:00 23:00 07:00 Intake Total 1021.0 ml 120 ml Output Total 3125 ml 125 ml Balance -2104.0 ml -5 ml medications Current Medications Medications Dose Ordered Sig/Clay Route Start Time Stop Time Status Last Admin Dose Admin Epinephrine HCl 250 ml @ 7.5 mls/hr Q24H IV 08/12/24 14:45 Norepinephrine Bitartrate 250 ml @ 3.75 mls/hr Q24H IV 08/12/24 14:45 08/14/24 08:44 3.75 MLS/HR Ticagrelor 90 mg BID PO 08/13/24 07:30 08/18/24 20:55 90 MG Aspirin 81 mg DAILY PO 08/13/24 10:00 08/18/24 10:38 81 MG Diagnostic Test (Pha) 1 strip Q6HR 08/13/24 12:00 08/19/24 05:40 1 STRIP Insulin Human Regular Q6HR SC 08/13/24 12:00 08/19/24 06:08 2 UNITS Dextrose 50 ml UD PRN IV 08/13/24 09:00 Vancomycin HCl 0 ml @ 0 mls/hr UD IV 08/13/24 12:00 Pantoprazole Sodium 40 mg DAILY IV 08/14/24 10:00 08/18/24 10:37 40 MG Cefepime HCl 50 ml @ 12.5 mls/hr DAILY@1800 IV 08/14/24 18:00 08/18/24 17:50 12.5 MLS/HR Hydralazine HCl 10 mg Q6HP PRN IV 08/13/24 20:45 08/17/24 13:44 10 MG Heparin Sodium (Porcine) 5,000 units Q12HR SC 08/14/24 22:00 08/18/24 20:58 5,000 UNITS Labetalol HCl 10 mg Q4HPRN PRN IV 08/14/24 20:00 08/18/24 06:04 10 MG Carvedilol 6.25 mg Q12HR PO 08/15/24 10:00 08/18/24 20:57 6.25 MG Albuterol 2.5 mg Q4HR NEB 08/16/24 14:00 08/19/24 06:12 2.5 MG Ipratropium [place] 0.5 mg Q4HR NEB 08/16/24 14:00 08/19/24 06:12 0.5 MG Atorvastatin Calcium 80 mg HS PO 08/16/24 22:00 08/18/24 20:55 80 MG Clonidine HCl 0.2 mg Q6H PO 08/16/24 22:00 08/19/24 04:40 0.2 MG Acetaminophen 650 mg Q6HP PRN GT 08/17/24 14:00 Lorazepam 1 mg ONCE PRN IV 08/17/24 23:00 objective General: the patient is well developed and nourished. No acute distress. MENTAL STATUS: Subjective SPEECH, LANGUAGE, HIGHER CORTICAL FUNCTION: no aphasia, he speaks with weak voice. CRANIAL NERVES: Possible writing visual neglect. Pupils are equal, round and reactive. EOMs full and conjugate. No nystagmus. Facial sensation intact in all three divisions bilaterally. Mandibular strength intact. Facial muscles symmetrical and strength intact. SENSATION: Sensation to touch and pinprick is unremarkable MOTOR: Normal tone in the upper and lower extremity. Normal muscle bulk. No fasciculations. No abnormal movements or posturing. Muscle strength of the major groups in the upper extremities is 3-4/5, possible left side is weaker. Muscle strength of the major groups in the lower extremities is 2/5 REFLEXES: Deep tendon reflexes are symmetrical. No pathological reflexes. CEREBELLAR/COORDINATION: Finger to nose showed intentional tremor in the right hand. GAIT/STATION: deferred. laboratory and microbiology Laboratory Tests 08/19/24 03:22 Test 08/19/24 03:22 Range/Units Serum Glucose 124 H 74-106 mg/dL Problem List Altered mental status, improving Hypoxic encephalopathy Metabolic encephalopathy Status post cardiopulmonary arrest Status post CPR Right homonymous hemianopsia vs right visual neglect Right upper extremity intentional tremor Left leg weakness Elevated troponin one/acute stroke Strokes Assessment/Plan Monitoring Supportive treatment EEG MICHAEL MRI brain scan (not a candidate secondary to heart stend on 08/12/2024) Aspirin 81 mg daily Brilinta 90 mg b.i.d. Lipitor 80 mg daily DVT prophylaxis/heparin 5000 units subQ q.12 hours More recommendation per clinical course This medical document was created using an electronic medical record system with [employer] dictation system. Although this document has been carefully reviewed, there may still be some phonetic and typographical errors. These areas are purely typographical due to imperfections of the software programs, and do not reflect any compromise in the patient's medical care. Prognosis poor Dietary Evaluation Review Comments: 1. Pt needs a high protein lower calorie formula d/t Propofol fusiion. Recommend Vital High protein TF @50ml/hr, providing 105 g Protein, 1200kcal. meeting his protein needs @96%, energy needs @95% after adding Propofol@9.7ml/hr for 24 hours. 2. TPN perpharmacy if EN not tolerated. Expected Outcomes/Goals: Reassess needs when extubated Plan discussed with: Other EULALIO TOBIAS MD Aug 19, 2024 09:04
--- NOTE | 2024-08-19 10:55 | MEDREC ---
[facility] ASP Intervention Section I [facility] ASP Intervention: Deescalate AB based on CS (PLEASE CONSIDER DE-ESCALATION BASED ON CULTURE RESULTS) LAKEISHA OLIVA PHARMACIST Aug 19, 2024 10:55
[2024-08-19] MEDS: VANCOMYCIN 500mg/100mL 100 ML IV ONE (11:15)
--- NOTE | 2024-08-19 12:38 | DVHPN2 ---
Progress Note Date Seen: Aug 19, 2024 Medical Necessity Reason Pt with a Central, PICC or Fol: Yes The following are medically ne: Central Line, Arauz Catheter Subjective Review of Systems: Deferred Objective vital signs Vital Sign Date Time Temp Pulse Resp B/P (MAP) Pulse Ox O2 Delivery O2 Flow Rate FiO2 08/19/24 10:41 77 18 100 08/19/24 10:33 Nasal Cannula 2.0 08/19/24 10:33 28 08/19/24 10:00 108/60 08/19/24 04:00 98.3 98.3 Total Intake and Output 08/18/24 08/18/24 08/19/24 15:00 23:00 07:00 Intake Total 1021.0 ml 120 ml Output Total 3125 ml 125 ml Balance -2104.0 ml -5 ml medications Current Medications Medications Dose Ordered Sig/Clay Route Start Time Stop Time Status Last Admin Dose Admin Epinephrine HCl 250 ml @ 7.5 mls/hr Q24H IV 08/12/24 14:45 Norepinephrine Bitartrate 250 ml @ 3.75 mls/hr Q24H IV 08/12/24 14:45 08/14/24 08:44 Ticagrelor 90 mg BID PO 08/13/24 07:30 08/19/24 10:36 Aspirin 81 mg DAILY PO 08/13/24 10:00 08/19/24 10:17 Diagnostic Test (Pha) 1 strip Q6HR 08/13/24 12:00 08/19/24 11:58 Insulin Human Regular Q6HR SC 08/13/24 12:00 08/19/24 12:01 Dextrose 50 ml UD PRN IV 08/13/24 09:00 Vancomycin HCl 0 ml @ 0 mls/hr UD IV 08/13/24 12:00 Pantoprazole Sodium 40 mg DAILY IV 08/14/24 10:00 08/19/24 10:37 Cefepime HCl 50 ml @ 12.5 mls/hr DAILY@1800 IV 08/14/24 18:00 08/18/24 17:50 Hydralazine HCl 10 mg Q6HP PRN IV 08/13/24 20:45 08/17/24 13:44 Heparin Sodium (Porcine) 5,000 units Q12HR SC 08/14/24 22:00 08/19/24 10:38 Labetalol HCl 10 mg Q4HPRN PRN IV 08/14/24 20:00 08/18/24 06:04 Carvedilol 6.25 mg Q12HR PO 08/15/24 10:00 08/18/24 20:57 Albuterol 2.5 mg Q4HR NEB 08/16/24 14:00 08/19/24 10:31 Ipratropium [place] 0.5 mg Q4HR NEB 08/16/24 14:00 08/19/24 10:31 Atorvastatin Calcium 80 mg HS PO 08/16/24 22:00 08/18/24 20:55 Clonidine HCl 0.2 mg Q6H PO 08/16/24 22:00 08/19/24 04:40 Acetaminophen 650 mg Q6HP PRN GT 08/17/24 14:00 Lorazepam 1 mg ONCE PRN IV 08/17/24 23:00 Examination: GENERAL:Abnormal, CVS:Abnormal laboratory and microbiology Laboratory Tests 08/19/24 03:22 Test 08/19/24 03:22 Range/Units Serum Glucose 124 H 74-106 mg/dL Microbiology Date/Time Source Procedure Growth Status 08/15/24 03:00 Blood Blood Culture - Preliminary NO GROWTH AFTER 72 HOURS OF INCUBATION. Resulted 08/12/24 20:15 Nose MRSA Screen - Final Complete 08/12/24 14:28 Sputum Gram Stain - Final Complete 08/12/24 14:28 Sputum Respiratory Culture - Final Complete Problem List/Assessment/Plan Problem List/Assessment/Plan 49 year old Male from Dialysis unit for unresponsiveness subsequently had cardiac arrest in the setting of STEMI ESRD STEMI & cardiac arrest respiratory failure hypokalemia HD tomorrow replace today Plan discussed with: Other Dietary Evaluation Review Comments: 1. Pt needs a high protein lower calorie formula d/t Propofol fusiion. Recommend Vital High protein TF @50ml/hr, providing 105 g Protein, 1200kcal. meeting his protein needs @96%, energy needs @95% after adding Propofol@9.7ml/hr for 24 hours. 2. TPN perpharmacy if EN not tolerated. Expected Outcomes/Goals: Reassess needs when extubated ARABELLA STEELE MD Aug 19, 2024 12:38
--- NOTE | 2024-08-19 13:19 | DVHPN2 ---
Progress Note Date Seen: Aug 19, 2024 Medical Necessity Reason Pt with a Central, PICC or Fol: Yes The following are medically ne: Central Line, Arauz Catheter Subjective Patient reports: No new complaints Review of Systems: HEENT:Normal, CVS:Normal, RESPIRATORY:Normal, GI:Normal, :Normal, MSK:Normal, NEURO:Normal Objective vital signs Vital Sign Date Time Temp Pulse Resp B/P (MAP) Pulse Ox O2 Delivery O2 Flow Rate FiO2 08/19/24 10:41 77 18 100 08/19/24 10:33 Nasal Cannula 2.0 08/19/24 10:33 28 08/19/24 10:00 108/60 08/19/24 04:00 98.3 98.3 Total Intake and Output 08/18/24 08/18/24 08/19/24 15:00 23:00 07:00 Intake Total 1021.0 ml 120 ml Output Total 3125 ml 125 ml Balance -2104.0 ml -5 ml medications Current Medications Medications Dose Ordered Sig/Clay Route Start Time Stop Time Status Last Admin Dose Admin Epinephrine HCl 250 ml @ 7.5 mls/hr Q24H IV 08/12/24 14:45 Norepinephrine Bitartrate 250 ml @ 3.75 mls/hr Q24H IV 08/12/24 14:45 08/14/24 08:44 3.75 MLS/HR Ticagrelor 90 mg BID PO 08/13/24 07:30 08/19/24 10:36 90 MG Aspirin 81 mg DAILY PO 08/13/24 10:00 08/19/24 10:17 81 MG Diagnostic Test (Pha) 1 strip Q6HR 08/13/24 12:00 08/19/24 11:58 1 STRIP Insulin Human Regular Q6HR SC 08/13/24 12:00 08/19/24 12:01 6 UNITS Dextrose 50 ml UD PRN IV 08/13/24 09:00 Vancomycin HCl 0 ml @ 0 mls/hr UD IV 08/13/24 12:00 Pantoprazole Sodium 40 mg DAILY IV 08/14/24 10:00 08/19/24 10:37 40 MG Cefepime HCl 50 ml @ 12.5 mls/hr DAILY@1800 IV 08/14/24 18:00 08/18/24 17:50 12.5 MLS/HR Hydralazine HCl 10 mg Q6HP PRN IV 08/13/24 20:45 08/17/24 13:44 10 MG Heparin Sodium (Porcine) 5,000 units Q12HR SC 08/14/24 22:00 08/19/24 10:38 5,000 UNITS Labetalol HCl 10 mg Q4HPRN PRN IV 08/14/24 20:00 08/18/24 06:04 10 MG Carvedilol 6.25 mg Q12HR PO 08/15/24 10:00 08/18/24 20:57 6.25 MG Albuterol 2.5 mg Q4HR NEB 08/16/24 14:00 08/19/24 10:31 2.5 MG Ipratropium [place] 0.5 mg Q4HR NEB 08/16/24 14:00 08/19/24 10:31 0.5 MG Atorvastatin Calcium 80 mg HS PO 08/16/24 22:00 08/18/24 20:55 80 MG Clonidine HCl 0.2 mg Q6H PO 08/16/24 22:00 08/19/24 04:40 0.2 MG Acetaminophen 650 mg Q6HP PRN GT 08/17/24 14:00 Lorazepam 1 mg ONCE PRN IV 08/17/24 23:00 Examination: GENERAL:Normal, HEENT:Normal, NECK:Normal, LUNGS:Normal, CVS:Normal, ABDOMEN:Normal, MSK:Normal, MSK:Abnormal (bilateral mid foot amputations), SKIN:Normal, NEURO:Normal, NEURO:Abnormal (?dysarthria), :Normal laboratory and microbiology Laboratory Tests 08/19/24 03:22 Test 08/19/24 03:22 Range/Units Serum Glucose 124 H 74-106 mg/dL Microbiology Date/Time Source Procedure Growth Status 08/15/24 03:00 Blood Blood Culture - Preliminary NO GROWTH AFTER 72 HOURS OF INCUBATION. Resulted 08/12/24 20:15 Nose MRSA Screen - Final Complete 08/12/24 14:28 Sputum Gram Stain - Final Complete 08/12/24 14:28 Sputum Respiratory Culture - Final Complete Problem List/Assessment/Plan Problem List/Assessment/Plan * Acute respiratory failure for which the patient will continue on assist control ventilation, cpap trial- extubate * Shock, questionably septic, questionably cardiac. dc antibiotics * Acute myocardial infarction, status post coronary angiography with stenting of the proximal circumflex. * Transaminitis: monitor * End-stage renal disease, on hemodialysis. * Status post CPR. * To rule out hypoxic encephalopathy. * Peripheral vascular disease with bilateral midfoot amputations. *cva: david, cont meds advance care planning- full code- time spent 19mins Plan discussed with: Patient My Orders My Orders Orders - MAUREEN DOUGHERTY MD Procedure Category Date Status Time Complete Blood Count LAB 08/20/24 Verified 04:00 Creatinine LAB 08/20/24 Verified 04:00 Vancomycin,Random LAB 08/20/24 Verified 04:00 Clonidine Hcl Tablet PHA 08/19/24 Logged (Catapres Tablet) 16:00 Basic Metabolic Panel LAB 08/20/24 Verified 06:00 Complete Blood Count LAB 08/20/24 Verified 06:00 Chest Portable XY 08/20/24 Logged 06:00 Dietary Evaluation Review Comments: 1. Pt needs a high protein lower calorie formula d/t Propofol fusiion. Recommend Vital High protein TF @50ml/hr, providing 105 g Protein, 1200kcal. meeting his protein needs @96%, energy needs @95% after adding Propofol@9.7ml/hr for 24 hours. 2. TPN perpharmacy if EN not tolerated. Expected Outcomes/Goals: Reassess needs when extubated Date of Service: Aug 19, 2024 Billing Provider: MAUREEN DOUGHERTY MD Common Visit Codes: [id number] INP/OBS CARE(HIGH) Secondary Visit Codes: [id number] CARE PLAN 30 MINUTES MAUREEN DOUGHERTY MD Aug 19, 2024 13:19
--- NOTE | 2024-08-19 14:14 | DVHPN2 ---
Progress Note Date Seen: Aug 19, 2024 Medical Necessity Reason Pt with a Central, PICC or Fol: Yes The following are medically ne: Central Line, Arauz Catheter Subjective Patient reports: Feels better Objective vital signs Vital Sign Date Time Temp Pulse Resp B/P (MAP) Pulse Ox O2 Delivery O2 Flow Rate FiO2 08/19/24 14:09 81 18 100 08/19/24 13:59 Nasal Cannula 1.0 08/19/24 10:33 28 08/19/24 10:00 108/60 08/19/24 04:00 98.3 98.3 Total Intake and Output 08/18/24 08/18/24 08/19/24 15:00 23:00 07:00 Intake Total 1021.0 ml 120 ml Output Total 3125 ml 125 ml Balance -2104.0 ml -5 ml medications Current Medications Medications Dose Ordered Sig/Clay Route Start Time Stop Time Status Last Admin Dose Admin Ticagrelor 90 mg BID PO 08/13/24 07:30 08/19/24 10:36 90 MG Aspirin 81 mg DAILY PO 08/13/24 10:00 08/19/24 10:17 81 MG Diagnostic Test (Pha) 1 strip Q6HR 08/13/24 12:00 08/19/24 11:58 1 STRIP Insulin Human Regular Q6HR SC 08/13/24 12:00 08/19/24 12:01 6 UNITS Dextrose 50 ml UD PRN IV 08/13/24 09:00 Pantoprazole Sodium 40 mg DAILY IV 08/14/24 10:00 08/19/24 10:37 40 MG Hydralazine HCl 10 mg Q6HP PRN IV 08/13/24 20:45 08/17/24 13:44 10 MG Heparin Sodium (Porcine) 5,000 units Q12HR SC 08/14/24 22:00 08/19/24 10:38 5,000 UNITS Labetalol HCl 10 mg Q4HPRN PRN IV 08/14/24 20:00 08/18/24 06:04 10 MG Carvedilol 6.25 mg Q12HR PO 08/15/24 10:00 08/18/24 20:57 6.25 MG Albuterol 2.5 mg Q4HR NEB 08/16/24 14:00 08/19/24 13:56 2.5 MG Ipratropium [place] 0.5 mg Q4HR NEB 08/16/24 14:00 08/19/24 13:56 0.5 MG Atorvastatin Calcium 80 mg HS PO 08/16/24 22:00 08/18/24 20:55 80 MG Acetaminophen 650 mg Q6HP PRN GT 08/17/24 14:00 Lorazepam 1 mg ONCE PRN IV 08/17/24 23:00 Clonidine HCl 0.1 mg Q6H PO 08/19/24 16:00 Examination: GENERAL:Abnormal, HEENT:Abnormal, LUNGS:Abnormal, CVS:Abnormal, ABDOMEN:Abnormal laboratory and microbiology Laboratory Tests 08/19/24 03:22 Test 08/19/24 03:22 Range/Units Serum Glucose 124 H 74-106 mg/dL Microbiology Date/Time Source Procedure Growth Status 08/15/24 03:00 Blood Blood Culture - Preliminary NO GROWTH AFTER 72 HOURS OF INCUBATION. Resulted 08/12/24 20:15 Nose MRSA Screen - Final Complete 08/12/24 14:28 Sputum Gram Stain - Final Complete 08/12/24 14:28 Sputum Respiratory Culture - Final Complete Problem List/Assessment/Plan Problem List/Assessment/Plan cardiac arrest resp failure cad s/p pci nstemi esrd on hd pad hypotension cont dapt cont statin wean off pressors daily awakening, abg improved HD per renal eventual PAD assessment when more stable for chronic condition abnormal head ct-fu per primary group dc amio gtt start coreg cont bp control cva old---sinus tach, will do bubble study echo today avoid david for now pt answering questions and moving appropriately with me currently cont dapt critial care time spent 40 mins Plan discussed with: Patient Dietary Evaluation Review Comments: 1. Pt needs a high protein lower calorie formula d/t Propofol fusiion. Recommend Vital High protein TF @50ml/hr, providing 105 g Protein, 1200kcal. meeting his protein needs @96%, energy needs @95% after adding Propofol@9.7ml/hr for 24 hours. 2. TPN perpharmacy if EN not tolerated. Expected Outcomes/Goals: Reassess needs when extubated Date of Service: Aug 19, 2024 Billing Provider: CYNDIE BACON MD Common Visit Codes: NOT BILLABLE CYNDIE BACON MD Aug 19, 2024 14:14
[2024-08-19] MEDS: cloNIDine HCL 0.1 MG TAB PO SCH (16:00)
[2024-08-19] MEDS: POTASSIUM CHL 10 Meq TABLET PO ONE (18:27)
--- NOTE | 2024-08-19 23:19 | DVHEEG2 ---
Neurology EEG Procedural Note Procedural Note EXAM DATE: 08/19/2024 REFERRING DOCTOR: Dr. Tobias TECHNIQUE: Eighteen channels of EEG, 2 channels of EOG, and 1 channel of EKG were recorded using the [employer] 10/20 system. CLINICAL DATA: The patient was referred for an EEG evaluation for the evidence of seizure disorder. MEDICATIONS: See chart BACKGROUND ACTIVITY: This record showed diffuse low amplitude theta activity and small amount of delta activity. ACTIVATION: Hyperventilation: Not done Photic Stimulation: Not done Sleep: Not seen IMPRESSION: This is a mildly to moderately abnormal EEG. This EEG is seen in mild to moderate cerebral dysfunction due to metabolic/hypoxic encephalopathy or medication effects The EKG channel showed a regular heart rate of 78 per minutes [place] [address] EULALIO TOBIAS MD Aug 19, 2024 23:19
[2024-08-20] VITALS (22 sets, daily range): BP systolic 128–155; BP diastolic 80–93; PULSE 62–82; RESP 12–20; TEMP 97.6–98.8; O2SAT 96–100
[2024-08-20 06:18] LABS: Anion Gap 14 (5-15); Carbon Dioxide 27 mmol/L (20-31)
[2024-08-20 06:19] LABS: Calcium 9.1 mg/dL (8.7-10.4)
[2024-08-20 06:23] LABS: Basophils # (auto) 0.1 10 ^3/uL (0-0.2); Basophils % (auto) 0.7 % (0.0-2.0); Eosinophils # (auto) 0.1 10 ^3/uL (0-0.8); Eosinophils % (auto) 1.6 % (0.0-7.0); Hematocrit 32.8 % (41.0-53.0); Lymphocytes # (auto) 1.7 10 ^3/uL (0.4-5.4); Mean Corpuscular Hgb Conc. 33.5 g/dL (32.0-36.0); Mean Corpuscular Volume 95.5 fL (80.0-100.0); Monocytes % (auto) 11.4 % (0.0-12.0); Neutrophils % (auto) 67.3 % (37.0-80.0); Platelet Count (auto) 267 10^3/uL (140-450); Red Blood Cells 3.43 10^6/uL (4.5-5.90); Red Cell Distribution Width 13.6 % (11.8-14.3); White Blood Cell 8.9 10^3/uL (4.4-10.8)
[2024-08-20 06:24] LABS: BUN/Creatinine Ratio 5.5 (10.0-20.0)
[2024-08-20 06:26] LABS: Phosphorus 3.7 mg/dL (2.4-5.1)
[2024-08-20 06:28] LABS: Blood Urea Nitrogen 38 mg/dL (9-23); Chloride 92 mmol/L (98-107); Glucose 127 mg/dL (74-106); Potassium 3.3 mmol/L (3.5-5.1); Sodium 133 mmol/L (136-145)
[2024-08-20] MEDS: SODIUM CHL 0.9% 1000 ML BAG XX ONE (07:30)
--- NOTE | 2024-08-20 09:14 | DVH ---
EXAM: XY CHEST PORTABLE Indication: htn Technique: Single frontal view of the chest was obtained Comparison: XY CHEST PORTABLE on DOS: 08/16/24, XY CHEST PORTABLE on DOS: 08/16/24, XY CHEST PORTABLE on DOS: 08/15/24, XY CHEST PORTABLE on DOS: 08/14/24, XY CHEST PORTABLE on DOS: 08/13/24 FINDINGS: Lines and Tubes: Right internal jugular central venous catheter tip projects over the superior vena c elena. Left internal jugular central venous catheter tip projects over the superior vena cava. Lungs: No focal consolidation. Pleura: No effusion. No pneumothorax. Cardiomediastinal contours: Unremarkable Bones: No acute osseous abnormality. IMPRESSION: No acute cardiopulmonary disease.
[2024-08-20] MEDS: HYDROcodone-ACET 5/325MG TAB PO PRN (09:18)
--- NOTE | 2024-08-20 09:26 | DVHPN2 ---
Progress Note Date Seen: Aug 20, 2024 Medical Necessity Reason Pt with a Central, PICC or Fol: No The following are medically ne: Central Line Objective vital signs Vital Sign Date Time Temp Pulse Resp B/P (MAP) Pulse Ox O2 Delivery O2 Flow Rate FiO2 08/20/24 07:10 81 18 100 08/20/24 05:00 98.6 150/89 (109) 98.6 08/20/24 02:01 Room Air 0.0 08/20/24 02:01 21 Total Intake and Output 08/19/24 08/19/24 08/20/24 15:00 23:00 07:00 Intake Total 100 ml 708 ml 240 ml Output Total 150 ml 50 ml Balance 100 ml 558 ml 190 ml medications Current Medications Medications Dose Ordered Sig/Clay Route Start Time Stop Time Status Last Admin Dose Admin Ticagrelor 90 mg BID PO 08/13/24 07:30 08/19/24 21:44 90 MG Aspirin 81 mg DAILY PO 08/13/24 10:00 08/19/24 10:17 81 MG Diagnostic Test (Pha) 1 strip Q6HR 08/13/24 12:00 08/20/24 05:31 1 STRIP Insulin Human Regular Q6HR SC 08/13/24 12:00 08/20/24 05:30 2 UNITS Dextrose 50 ml UD PRN IV 08/13/24 09:00 Pantoprazole Sodium 40 mg DAILY IV 08/14/24 10:00 08/19/24 10:37 40 MG Hydralazine HCl 10 mg Q6HP PRN IV 08/13/24 20:45 08/17/24 13:44 10 MG Heparin Sodium (Porcine) 5,000 units Q12HR SC 08/14/24 22:00 08/19/24 21:48 5,000 UNITS Labetalol HCl 10 mg Q4HPRN PRN IV 08/14/24 20:00 08/18/24 06:04 10 MG Carvedilol 6.25 mg Q12HR PO 08/15/24 10:00 08/19/24 21:56 6.25 MG Albuterol 2.5 mg Q4HR NEB 08/16/24 14:00 08/20/24 07:00 2.5 MG Ipratropium [place] 0.5 mg Q4HR NEB 08/16/24 14:00 08/20/24 07:00 0.5 MG Atorvastatin Calcium 80 mg HS PO 08/16/24 22:00 08/19/24 21:44 80 MG Acetaminophen 650 mg Q6HP PRN GT 08/17/24 14:00 Lorazepam 1 mg ONCE PRN IV 08/17/24 23:00 Clonidine HCl 0.1 mg Q6H PO 08/19/24 16:00 08/20/24 03:33 0.1 MG Acetaminophen/ Hydrocodone Bitart 1 tab Q6HPRN PRN PO 08/20/24 07:45 Examination: GENERAL:Normal, LUNGS:Normal, CVS:Abnormal, ABDOMEN:Normal laboratory and microbiology Laboratory Tests 08/20/24 04:03 Test 08/20/24 04:03 Range/Units Serum Glucose 127 H 74-106 mg/dL Microbiology Date/Time Source Procedure Growth Status 08/15/24 03:00 Blood Blood Culture - Final NO GROWTH AFTER 5 DAYS OF INCUBATION. Complete 08/12/24 20:15 Nose MRSA Screen - Final Complete 08/12/24 14:28 Sputum Gram Stain - Final Complete 08/12/24 14:28 Sputum Respiratory Culture - Final Complete Problem List/Assessment/Plan Problem List/Assessment/Plan 49 year old Male from Dialysis unit for unresponsiveness subsequently had cardiac arrest in the setting of STEMI ESRD STEMI & cardiac arrest respiratory failure resolved now extubated hypokalemia HD today 4K bath today renal diet cardiology w/u on going Plan discussed with: Patient My Orders My Orders Orders - ARABELLA STEELE MD Procedure Category Date Status Time Hemodialysis Orders ORDERS 08/20/24 Transmitted 07:25 Dialysis Nursing KAY 08/20/24 In Process Message 07:25 Document Fluid Input KAY 08/20/24 In Process And Outpu 07:25 Epoetin Ayaz-Epbx PHA 08/20/24 In Process (Retacrit) 21:00 Dietary Evaluation Review Comments: 1. Pt needs a high protein lower calorie formula d/t Propofol fusiion. Recommend Vital High protein TF @50ml/hr, providing 105 g Protein, 1200kcal. meeting his protein needs @96%, energy needs @95% after adding Propofol@9.7ml/hr for 24 hours. 2. TPN perpharmacy if EN not tolerated. Expected Outcomes/Goals: Reassess needs when extubated ARABELLA STEELE MD Aug 20, 2024 09:26
--- NOTE | 2024-08-20 11:36 | DVHSR ---
APPROVED REPORT EXAM: LIMITED Two-dimensional and Bubble Study Mitral Valve MitralMitral Stenosis E/A ratio0.02D MVAcm2 Other Information Quality : Technically LimitedRhythm : Technically limited study due to patient moving. Conclusion negative bubble study for R to L shunting preserved LVEF
--- NOTE | 2024-08-20 13:02 | DVHPN2 ---
Progress Note Date Seen: Aug 20, 2024 Medical Necessity Reason Pt with a Central, PICC or Fol: No The following are medically ne: Central Line Subjective Patient reports: No new complaints Review of Systems: HEENT:Normal, CVS:Normal, RESPIRATORY:Normal, GI:Normal, :Normal, MSK:Normal, NEURO:Normal Objective vital signs Vital Sign Date Time Temp Pulse Resp B/P (MAP) Pulse Ox O2 Delivery O2 Flow Rate FiO2 08/20/24 11:00 149/81 08/20/24 11:00 77 08/20/24 10:32 18 100 08/20/24 10:00 Nasal Cannula* 2 28 08/20/24 09:30 98.0 98.0 Total Intake and Output 08/19/24 08/19/24 08/20/24 15:00 23:00 07:00 Intake Total 100 ml 708 ml 240 ml Output Total 150 ml 50 ml Balance 100 ml 558 ml 190 ml medications Current Medications Medications Dose Ordered Sig/Clay Route Start Time Stop Time Status Last Admin Dose Admin Ticagrelor 90 mg BID PO 08/13/24 07:30 08/20/24 09:15 90 MG Aspirin 81 mg DAILY PO 08/13/24 10:00 08/20/24 09:17 81 MG Diagnostic Test (Pha) 1 strip Q6HR 08/13/24 12:00 08/20/24 11:55 1 STRIP Insulin Human Regular Q6HR SC 08/13/24 12:00 08/20/24 11:58 3 UNITS Dextrose 50 ml UD PRN IV 08/13/24 09:00 Pantoprazole Sodium 40 mg DAILY IV 08/14/24 10:00 08/20/24 09:15 40 MG Hydralazine HCl 10 mg Q6HP PRN IV 08/13/24 20:45 08/17/24 13:44 10 MG Heparin Sodium (Porcine) 5,000 units Q12HR SC 08/14/24 22:00 08/20/24 09:19 5,000 UNITS Labetalol HCl 10 mg Q4HPRN PRN IV 08/14/24 20:00 08/18/24 06:04 10 MG Carvedilol 6.25 mg Q12HR PO 08/15/24 10:00 08/20/24 09:16 6.25 MG Albuterol 2.5 mg Q4HR NEB 08/16/24 14:00 08/20/24 10:21 2.5 MG Ipratropium [place] 0.5 mg Q4HR NEB 08/16/24 14:00 08/20/24 10:21 0.5 MG Atorvastatin Calcium 80 mg HS PO 08/16/24 22:00 08/19/24 21:44 80 MG Acetaminophen 650 mg Q6HP PRN GT 08/17/24 14:00 Lorazepam 1 mg ONCE PRN IV 08/17/24 23:00 Clonidine HCl 0.1 mg Q6H PO 08/19/24 16:00 08/20/24 09:16 0.1 MG Acetaminophen/ Hydrocodone Bitart 1 tab Q6HPRN PRN PO 08/20/24 07:45 08/20/24 09:18 1 TAB Examination: GENERAL:Normal, HEENT:Normal, NECK:Normal, LUNGS:Normal, CVS:Normal, ABDOMEN:Normal, MSK:Normal, MSK:Abnormal (bilateral mid foot amputation), SKIN:Normal, NEURO:Normal, :Normal laboratory and microbiology Laboratory Tests 08/20/24 04:03 Test 08/20/24 04:03 Range/Units Serum Glucose 127 H 74-106 mg/dL Microbiology Date/Time Source Procedure Growth Status 08/15/24 03:00 Blood Blood Culture - Final NO GROWTH AFTER 5 DAYS OF INCUBATION. Complete 08/12/24 20:15 Nose MRSA Screen - Final Complete 08/12/24 14:28 Sputum Gram Stain - Final Complete 08/12/24 14:28 Sputum Respiratory Culture - Final Complete Problem List/Assessment/Plan Problem List/Assessment/Plan * Acute respiratory failure for which the patient will continue on assist control ventilation, cpap trial- extubate * Shock, questionably septic, questionably cardiac. dc antibiotics * Acute myocardial infarction, status post coronary angiography with stenting of the proximal circumflex. * Transaminitis: monitor * End-stage renal disease, on hemodialysis. * Status post CPR. * To rule out hypoxic encephalopathy. * Peripheral vascular disease with bilateral midfoot amputations. *cva: david- negative, cont meds advance care planning- full code- time spent 19mins Plan discussed with: Patient, Daughter My Orders My Orders Orders - MAUREEN DOUGHERTY MD Procedure Category Date Status Time Clonidine Hcl Tablet PHA 08/19/24 In Process (Catapres Tablet) 16:00 Chest Portable XY 08/20/24 Resulted 06:00 Transfer Orders XFER 08/19/24 Transmitted 13:15 Pt Request For Service PT 08/19/24 Logged 13:15 Vancomycin,Random LAB 08/21/24 Verified 04:00 Oxycodone Immediate PHA 08/20/24 Transmitted Rel Tablet 13:00 Pantoprazole Tablet PHA 08/21/24 Transmitted (Protonix Tablet) 06:00 * Career Placement Services Counselor CONS 08/20/24 Transmitted Consult Dietary Evaluation Review Comments: 1. Pt needs a high protein lower calorie formula d/t Propofol fusiion. Recommend Vital High protein TF @50ml/hr, providing 105 g Protein, 1200kcal. meeting his protein needs @96%, energy needs @95% after adding Propofol@9.7ml/hr for 24 hours. 2. TPN perpharmacy if EN not tolerated. Expected Outcomes/Goals: Reassess needs when extubated Date of Service: Aug 20, 2024 Billing Provider: MAUREEN DOUGHERTY MD Common Visit Codes: [id number] INP/OBS CARE(HIGH) MAUREEN DOUGHERTY MD Aug 20, 2024 13:02
[2024-08-20] MEDS: EPOETIN ALFA-EPBX 10,000 UNIT/1ML VIAL SC ONE (22:01)
--- NOTE | 2024-08-20 22:10 | DVHPN2 ---
Progress Note - Dictate Date Seen: Aug 20, 2024 Medical Necessity Reason Pt with a Central, PICC or Fol: No The following are medically ne: Central Line Subjective Mr. Tom is a 49 years old gentleman with a history of hypertension, diabetes, dyslipidemia, chronic kidney failure on hemodialysis, peripheral arterial disease, chronic leg wound, he was taken to the [facility] ER on 08/12/2024 with altered mental status I have seen and examined the patient, I have discussed with his nurse. He is awake, oriented to person, place, he follows verbal commands, voice is stronger, right-handed ataxia, extremity weakness were better Urinalysis, 08/12/2024: WBC/HB/PLT/MCV, 08/17/2024: 9.5/11/238/96.25 TG/INR/PTT, 08/12/2024: 12.1/1.16/39.3 BUN/CR, 08/17/2024: 26/5.46 Liver function tests, 08/17/2024: Unremarkable Troponin one high sensitivity, 08/12/2024: 24, 5974, 67700 TG/HDL/LDL/HDL, 08/17/2024: 172/145/77/41 EEG, 08/19/2024: Mildly to moderately abnormal EEG Carotid Doppler, 08/18/2024: 1. No evidence of hemodynamically significant stenosis within the bilateral carotid arterial systems. 2. Antegrade flow within bilateral vertebral arteries. Echocardiogram, 08/19/2024: negative bubble study for R to L shunting preserved LVEF CT head, 08/12/2024: 1. No acute intracranial hemorrhage. 2. Multiple hypodense lesion in the left cerebellar hemisphere. Further evaluation with MRI is recommended. 3. Small vessel ischemic/degenerative changes. 4. Generalized brain atrophy. CT head, 08/16/2024: No acute intracranial abnormality vital signs Vital Sign Date Time Temp Pulse Resp B/P (MAP) Pulse Ox O2 Delivery O2 Flow Rate FiO2 08/20/24 21:59 76 128/80 08/20/24 21:30 18 100 08/20/24 21:24 Room Air 0.0 08/20/24 21:24 21 08/20/24 17:17 98.6 98.6 Total Intake and Output 08/19/24 08/19/24 08/20/24 15:00 23:00 07:00 Intake Total 100 ml 708 ml 240 ml Output Total 150 ml 50 ml Balance 100 ml 558 ml 190 ml medications Current Medications Medications Dose Ordered Sig/Clay Route Start Time Stop Time Status Last Admin Dose Admin Ticagrelor 90 mg BID PO 08/13/24 07:30 08/20/24 21:56 90 MG Aspirin 81 mg DAILY PO 08/13/24 10:00 08/20/24 09:17 81 MG Diagnostic Test (Pha) 1 strip Q6HR 08/13/24 12:00 08/20/24 17:31 1 STRIP Insulin Human Regular Q6HR SC 08/13/24 12:00 08/20/24 17:34 2 UNITS Dextrose 50 ml UD PRN IV 08/13/24 09:00 Hydralazine HCl 10 mg Q6HP PRN IV 08/13/24 20:45 08/17/24 13:44 10 MG Heparin Sodium (Porcine) 5,000 units Q12HR SC 08/14/24 22:00 08/20/24 09:19 5,000 UNITS Labetalol HCl 10 mg Q4HPRN PRN IV 08/14/24 20:00 08/18/24 06:04 10 MG Carvedilol 6.25 mg Q12HR PO 08/15/24 10:00 08/20/24 21:59 6.25 MG Albuterol 2.5 mg Q4HR NEB 08/16/24 14:00 08/20/24 21:24 2.5 MG Ipratropium [place] 0.5 mg Q4HR NEB 08/16/24 14:00 08/20/24 21:24 0.5 MG Atorvastatin Calcium 80 mg HS PO 08/16/24 22:00 08/20/24 21:59 80 MG Acetaminophen 650 mg Q6HP PRN GT 08/17/24 14:00 Lorazepam 1 mg ONCE PRN IV 08/17/24 23:00 Clonidine HCl 0.1 mg Q6H PO 08/19/24 16:00 08/20/24 21:57 0.1 MG Oxycodone HCl 30 mg Q8HP PRN PO 08/20/24 13:00 Pantoprazole Sodium 40 mg DAILY@0600 PO 08/21/24 06:00 objective General: the patient is well developed and nourished. No acute distress. MENTAL STATUS: Subjective SPEECH, LANGUAGE, HIGHER CORTICAL FUNCTION: no aphasia, he speaks with weak voice. CRANIAL NERVES: Possible writing visual neglect. Pupils are equal, round and reactive. EOMs full and conjugate. No nystagmus. Facial sensation intact in all three divisions bilaterally. Mandibular strength intact. Facial muscles symmetrical and strength intact. SENSATION: Sensation to touch and pinprick is unremarkable MOTOR: Normal tone in the upper and lower extremity. Normal muscle bulk. No fasciculations. No abnormal movements or posturing. Muscle strength of the major groups in the upper extremities is 3-4/5, possible left side is weaker. Muscle strength of the major groups in the lower extremities is 3/5 REFLEXES: Deep tendon reflexes are symmetrical. No pathological reflexes. CEREBELLAR/COORDINATION: Finger to nose showed intentional tremor in the right hand. GAIT/STATION: deferred. laboratory and microbiology Laboratory Tests 08/20/24 04:03 Test 08/20/24 04:03 Range/Units Serum Glucose 127 H 74-106 mg/dL Problem List Altered mental status, improving Hypoxic encephalopathy Metabolic encephalopathy Status post cardiopulmonary arrest Status post CPR Right homonymous hemianopsia vs right visual neglect Right upper extremity intentional tremor Left leg weakness Elevated troponin one/acute stroke Strokes Assessment/Plan Monitoring Supportive treatment MICHAEL MRI brain scan (not a candidate secondary to heart stend on 08/12/2024) Aspirin 81 mg daily Brilinta 90 mg b.i.d. Lipitor 80 mg daily DVT prophylaxis/SCD GI prophylaxis/Protonix More recommendation per clinical course This medical document was created using an electronic medical record system with [employer] dictation system. Although this document has been carefully reviewed, there may still be some phonetic and typographical errors. These areas are purely typographical due to imperfections of the software programs, and do not reflect any compromise in the patient's medical care. Prognosis poor Dietary Evaluation Review Comments: 1. Pt needs a high protein lower calorie formula d/t Propofol fusiion. Recommend Vital High protein TF @50ml/hr, providing 105 g Protein, 1200kcal. meeting his protein needs @96%, energy needs @95% after adding Propofol@9.7ml/hr for 24 hours. 2. TPN perpharmacy if EN not tolerated. Expected Outcomes/Goals: Reassess needs when extubated Plan discussed with: EULALIO Wilson MD Aug 20, 2024 22:10
[2024-08-20] MEDS: oxyCODONE HCL 5MG TAB PO PRN (23:37)
[2024-08-21] VITALS (22 sets, daily range): BP systolic 139–160; BP diastolic 66–92; PULSE 64–90; RESP 14–18; TEMP 97.6–98.3; O2SAT 92–100
[2024-08-21] MEDS: PANTOPRAZOLE 40 MG TAB PO SCH (06:00)
[2024-08-21 10:03] LABS: Anion Gap 10 (5-15); Calcium 10.1 mg/dL (8.7-10.4); Carbon Dioxide 27 mmol/L (20-31); Chloride 97 mmol/L (98-107); Potassium 3.4 mmol/L (3.5-5.1); Sodium 134 mmol/L (136-145)
[2024-08-21 10:08] LABS: Blood Urea Nitrogen 21 mg/dL (9-23)
[2024-08-21 10:12] LABS: Glucose 152 mg/dL (74-106)
--- NOTE | 2024-08-21 13:35 | DVHPN2 ---
Progress Note Date Seen: Aug 21, 2024 Medical Necessity Reason Pt with a Central, PICC or Fol: No Subjective Patient reports: No new complaints Review of Systems: HEENT:Normal, CVS:Normal, RESPIRATORY:Normal, GI:Normal, :Normal, MSK:Normal, NEURO:Normal Objective vital signs Vital Sign Date Time Temp Pulse Resp B/P (MAP) Pulse Ox O2 Delivery O2 Flow Rate FiO2 08/21/24 11:52 187/98 08/21/24 11:30 87 08/21/24 10:44 16 100 08/21/24 10:00 Room Air* 0 21 08/21/24 08:49 98.3 98.3 Total Intake and Output 08/20/24 08/20/24 08/21/24 15:00 23:00 07:00 Intake Total 350 ml Balance 350 ml medications Current Medications Medications Dose Ordered Sig/Clay Route Start Time Stop Time Status Last Admin Dose Admin Ticagrelor 90 mg BID PO 08/13/24 07:30 08/21/24 09:26 90 MG Aspirin 81 mg DAILY PO 08/13/24 10:00 08/21/24 09:26 81 MG Diagnostic Test (Pha) 1 strip Q6HR 08/13/24 12:00 08/21/24 11:55 1 STRIP Insulin Human Regular Q6HR SC 08/13/24 12:00 08/21/24 12:03 2 UNITS Dextrose 50 ml UD PRN IV 08/13/24 09:00 Hydralazine HCl 10 mg Q6HP PRN IV 08/13/24 20:45 08/21/24 11:52 10 MG Heparin Sodium (Porcine) 5,000 units Q12HR SC 08/14/24 22:00 08/21/24 09:31 5,000 UNITS Labetalol HCl 10 mg Q4HPRN PRN IV 08/14/24 20:00 08/18/24 06:04 10 MG Carvedilol 6.25 mg Q12HR PO 08/15/24 10:00 08/21/24 09:28 6.25 MG Albuterol 2.5 mg Q4HR NEB 08/16/24 14:00 08/21/24 10:33 2.5 MG Ipratropium [place] 0.5 mg Q4HR NEB 08/16/24 14:00 08/21/24 10:34 0.5 MG Atorvastatin Calcium 80 mg HS PO 08/16/24 22:00 08/20/24 21:59 80 MG Acetaminophen 650 mg Q6HP PRN GT 08/17/24 14:00 Lorazepam 1 mg ONCE PRN IV 08/17/24 23:00 Clonidine HCl 0.1 mg Q6H PO 08/19/24 16:00 08/21/24 09:27 0.1 MG Oxycodone HCl 30 mg Q8HP PRN PO 08/20/24 13:00 08/21/24 14:00 08/21/24 08:13 30 MG Pantoprazole Sodium 40 mg DAILY@0600 PO 08/21/24 06:00 08/21/24 06:00 40 MG Oxycodone HCl 30 mg Q6HP PRN PO 08/21/24 14:00 UNV Examination: GENERAL:Normal, HEENT:Normal, NECK:Normal, LUNGS:Normal, CVS:Normal, ABDOMEN:Normal, MSK:Normal, MSK:Abnormal (bilateral midfoot amputation), SKIN:Normal, NEURO:Normal, :Normal laboratory and microbiology Laboratory Tests 08/21/24 09:34 08/20/24 04:03 Test 08/21/24 09:34 Range/Units Serum Glucose 152 H 74-106 mg/dL Microbiology Date/Time Source Procedure Growth Status 08/15/24 03:00 Blood Blood Culture - Final NO GROWTH AFTER 5 DAYS OF INCUBATION. Complete 08/12/24 20:15 Nose MRSA Screen - Final Complete 08/12/24 14:28 Sputum Gram Stain - Final Complete 08/12/24 14:28 Sputum Respiratory Culture - Final Complete Problem List/Assessment/Plan Problem List/Assessment/Plan * Acute respiratory failure for which the patient will continue on assist control ventilation, cpap trial- extubate * Shock, questionably septic, questionably cardiac. dc antibiotics * Acute myocardial infarction, status post coronary angiography with stenting of the proximal circumflex. * Transaminitis: monitor * End-stage renal disease, on hemodialysis. * Status post CPR. * To rule out hypoxic encephalopathy. * Peripheral vascular disease with bilateral midfoot amputations. *cva: david- negative, cont meds advance care planning- full code- time spent 19mins Plan discussed with: Patient My Orders My Orders Orders - MAUREEN DOUGHERTY MD Procedure Category Date Status Time Oxycodone Immediate PHA 08/21/24 Logged Rel Tablet 14:00 Dietary Evaluation Review Comments: 1. Pt needs a high protein lower calorie formula d/t Propofol fusiion. Recommend Vital High protein TF @50ml/hr, providing 105 g Protein, 1200kcal. meeting his protein needs @96%, energy needs @95% after adding Propofol@9.7ml/hr for 24 hours. 2. TPN perpharmacy if EN not tolerated. Expected Outcomes/Goals: Reassess needs when extubated Date of Service: Aug 21, 2024 Billing Provider: MAUREEN DOUGHERTY MD Common Visit Codes: [id number] INP/OBS CARE(HIGH) MAUREEN DOUGHERTY MD Aug 21, 2024 13:35
[2024-08-21] MEDS: oxyCODONE HCL 5MG TAB PO PRN (14:40)
--- NOTE | 2024-08-21 16:08 | DVHPN2 ---
Progress Note Date Seen: Aug 21, 2024 Medical Necessity Reason Pt with a Central, PICC or Fol: Yes The following are medically ne: Munson Catheter Subjective Patient reports: Feels better Objective vital signs Vital Sign Date Time Temp Pulse Resp B/P (MAP) Pulse Ox O2 Delivery O2 Flow Rate FiO2 08/21/24 14:09 90 16 100 08/21/24 13:00 98.1 143/87 (105) 98.1 08/21/24 10:00 Room Air* 0 21 Total Intake and Output 08/20/24 08/20/24 08/21/24 15:00 23:00 07:00 Intake Total 350 ml Balance 350 ml medications Current Medications Medications Dose Ordered Sig/Clay Route Start Time Stop Time Status Last Admin Dose Admin Ticagrelor 90 mg BID PO 08/13/24 07:30 08/21/24 09:26 90 MG Aspirin 81 mg DAILY PO 08/13/24 10:00 08/21/24 09:26 81 MG Diagnostic Test (Pha) 1 strip Q6HR 08/13/24 12:00 08/21/24 11:55 1 STRIP Insulin Human Regular Q6HR SC 08/13/24 12:00 08/21/24 12:03 2 UNITS Dextrose 50 ml UD PRN IV 08/13/24 09:00 Hydralazine HCl 10 mg Q6HP PRN IV 08/13/24 20:45 08/21/24 11:52 10 MG Heparin Sodium (Porcine) 5,000 units Q12HR SC 08/14/24 22:00 08/21/24 09:31 5,000 UNITS Labetalol HCl 10 mg Q4HPRN PRN IV 08/14/24 20:00 08/18/24 06:04 10 MG Carvedilol 6.25 mg Q12HR PO 08/15/24 10:00 08/21/24 09:28 6.25 MG Albuterol 2.5 mg Q4HR NEB 08/16/24 14:00 08/21/24 13:59 2.5 MG Ipratropium [place] 0.5 mg Q4HR NEB 08/16/24 14:00 08/21/24 13:59 0.5 MG Atorvastatin Calcium 80 mg HS PO 08/16/24 22:00 08/20/24 21:59 80 MG Acetaminophen 650 mg Q6HP PRN GT 08/17/24 14:00 Lorazepam 1 mg ONCE PRN IV 08/17/24 23:00 Clonidine HCl 0.1 mg Q6H PO 08/19/24 16:00 08/21/24 09:27 0.1 MG Pantoprazole Sodium 40 mg DAILY@0600 PO 08/21/24 06:00 08/21/24 06:00 40 MG Oxycodone HCl 30 mg Q6HP PRN PO 08/21/24 14:00 08/21/24 14:40 30 MG Enteral Nutritional Formula 240 ml BIDWM PO 08/21/24 18:00 Examination: GENERAL:Normal, NECK:Normal, LUNGS:Normal, MSK:Abnormal laboratory and microbiology Laboratory Tests 08/21/24 09:34 08/20/24 04:03 Test 08/21/24 09:34 Range/Units Serum Glucose 152 H 74-106 mg/dL Microbiology Date/Time Source Procedure Growth Status 08/15/24 03:00 Blood Blood Culture - Final NO GROWTH AFTER 5 DAYS OF INCUBATION. Complete 08/12/24 20:15 Nose MRSA Screen - Final Complete 08/12/24 14:28 Sputum Gram Stain - Final Complete 08/12/24 14:28 Sputum Respiratory Culture - Final Complete Problem List/Assessment/Plan Problem List/Assessment/Plan 49 year old Male from Dialysis unit for unresponsiveness subsequently had cardiac arrest in the setting of STEMI ESRD STEMI & cardiac arrest respiratory failure resolved now extubated hypokalemia HD tomorrow po potassium today renal diet cardiology remove munson catheter TOV Plan discussed with: Patient My Orders My Orders Orders - ARABELLA STEELE MD Procedure Category Date Status Time D/C Munson KAY 08/21/24 Verified 16:05 Potassium Er Tablet PHA 08/21/24 Verified (Klor-Con Tablet) 16:15 Dietary Evaluation Review Comments: 1. Pt needs a high protein lower calorie formula d/t Propofol fusiion. Recommend Vital High protein TF @50ml/hr, providing 105 g Protein, 1200kcal. meeting his protein needs @96%, energy needs @95% after adding Propofol@9.7ml/hr for 24 hours. 2. TPN perpharmacy if EN not tolerated. Expected Outcomes/Goals: Reassess needs when extubated ARABELLA STEELE MD Aug 21, 2024 16:08
[2024-08-21] MEDS: POTASSIUM CHL 20 Meq TABLET PO ONE (17:41)
[2024-08-21] MEDS: Nepro With Carbsteady ButterPecan 8oz Carton PO SCH (18:00)
[2024-08-21] MEDS: MELATONIN 5 MG TAB PO ONE (22:14)
[2024-08-22] VITALS (18 sets, daily range): BP systolic 155–180; BP diastolic 65–93; PULSE 64–94; RESP 16–20; TEMP 97.6–98.4; O2SAT 93–100
[2024-08-22] MEDS ORDERED: SODIUM CHL 0.9% 1000 ML BAG XX ONE (07:00)
[2024-08-22 07:28] LABS: Chloride 96 mmol/L (98-107); Sodium 133 mmol/L (136-145)
[2024-08-22 07:29] LABS: Anion Gap 11 (5-15); Calcium 9.4 mg/dL (8.7-10.4); Carbon Dioxide 26 mmol/L (20-31)
[2024-08-22 07:34] LABS: BUN/Creatinine Ratio 4.4 (10.0-20.0)
[2024-08-22 07:36] LABS: Blood Urea Nitrogen 27 mg/dL (9-23); Glucose 145 mg/dL (74-106)
--- NOTE | 2024-08-22 14:30 | DVHPN2 ---
Progress Note Date Seen: Aug 22, 2024 Medical Necessity Reason Pt with a Central, PICC or Fol: Yes The following are medically ne: Arauz Catheter Objective vital signs Vital Sign Date Time Temp Pulse Resp B/P (MAP) Pulse Ox O2 Delivery O2 Flow Rate FiO2 08/22/24 09:53 157/87 08/22/24 09:53 81 08/22/24 09:47 18 100 08/22/24 09:41 Room Air* 0 21 08/22/24 09:00 98.0 98.0 Total Intake and Output 08/21/24 08/21/24 08/22/24 15:00 23:00 07:00 Intake Total 200 ml 450 ml Output Total 700 ml 500 ml Balance -500 ml -50 ml medications Current Medications Medications Dose Ordered Sig/Clay Route Start Time Stop Time Status Last Admin Dose Admin Ticagrelor 90 mg BID PO 08/13/24 07:30 08/22/24 09:52 90 MG Aspirin 81 mg DAILY PO 08/13/24 10:00 08/22/24 09:52 81 MG Diagnostic Test (Pha) 1 strip Q6HR 08/13/24 12:00 08/22/24 11:55 1 STRIP Insulin Human Regular Q6HR SC 08/13/24 12:00 08/22/24 12:27 3 UNITS Dextrose 50 ml UD PRN IV 08/13/24 09:00 Hydralazine HCl 10 mg Q6HP PRN IV 08/13/24 20:45 08/22/24 01:58 10 MG Heparin Sodium (Porcine) 5,000 units Q12HR SC 08/14/24 22:00 08/21/24 21:56 5,000 UNITS Labetalol HCl 10 mg Q4HPRN PRN IV 08/14/24 20:00 08/18/24 06:04 10 MG Carvedilol 6.25 mg Q12HR PO 08/15/24 10:00 08/22/24 09:53 6.25 MG Albuterol 2.5 mg Q4HR NEB 08/16/24 14:00 08/22/24 09:41 2.5 MG Ipratropium [place] 0.5 mg Q4HR NEB 08/16/24 14:00 08/22/24 09:41 0.5 MG Atorvastatin Calcium 80 mg HS PO 08/16/24 22:00 08/21/24 22:04 80 MG Acetaminophen 650 mg Q6HP PRN GT 08/17/24 14:00 Lorazepam 1 mg ONCE PRN IV 08/17/24 23:00 Clonidine HCl 0.1 mg Q6H PO 08/19/24 16:00 08/22/24 09:53 0.1 MG Pantoprazole Sodium 40 mg DAILY@0600 PO 08/21/24 06:00 08/22/24 05:09 40 MG Oxycodone HCl 30 mg Q6HP PRN PO 08/21/24 14:00 08/22/24 09:52 30 MG Enteral Nutritional Formula 240 ml BIDWM PO 08/21/24 18:00 08/22/24 11:55 240 ML Examination: GENERAL:Normal, CVS:Normal, SKIN:Normal laboratory and microbiology Laboratory Tests 08/22/24 06:50 08/20/24 04:03 Test 08/22/24 06:50 Range/Units Serum Glucose 145 H 74-106 mg/dL Microbiology Date/Time Source Procedure Growth Status 08/15/24 03:00 Blood Blood Culture - Final NO GROWTH AFTER 5 DAYS OF INCUBATION. Complete 08/12/24 20:15 Nose MRSA Screen - Final Complete 08/12/24 14:28 Sputum Gram Stain - Final Complete 08/12/24 14:28 Sputum Respiratory Culture - Final Complete Problem List/Assessment/Plan Problem List/Assessment/Plan 49 year old Male from Dialysis unit for unresponsiveness subsequently had cardiac arrest in the setting of STEMI ESRD STEMI & cardiac arrest respiratory failure resolved now extubated hypokalemia HD today renal diet cardiology Plan discussed with: Patient My Orders My Orders Orders - ARABELLA STEELE MD Procedure Category Date Status Time D/C Arauz KAY 08/21/24 In Process 16:05 Hemodialysis Orders ORDERS 08/22/24 Transmitted 07:00 Dialysis Nursing KAY 08/22/24 In Process Message 07:00 Document Fluid Input KAY 08/22/24 In Process And Outpu 07:00 Dietary Evaluation Review Comments: 1. Pt needs a high protein lower calorie formula d/t Propofol fusiion. Recommend Vital High protein TF @50ml/hr, providing 105 g Protein, 1200kcal. meeting his protein needs @96%, energy needs @95% after adding Propofol@9.7ml/hr for 24 hours. 2. TPN perpharmacy if EN not tolerated. Expected Outcomes/Goals: Reassess needs when extubated ARABELLA STEELE MD Aug 22, 2024 14:30
--- NOTE | 2024-08-22 14:32 | DVHDS2 ---
Discharge Summary Date of Admission Aug 12, 2024 at 19:21 Date of Discharge: Aug 22, 2024 Labs/Diagnostic Data: Laboratory Results Test 08/22/24 11:24 08/22/24 06:50 08/21/24 09:34 08/20/24 04:03 POC Glucose 174 mg/dl (70-106) Sodium Level 133 mmol/L (136-145) Potassium Level 4.0 mmol/L (3.5-5.1) Chloride Level 96 mmol/L (98-107) Carbon Dioxide Level 26 mmol/L (20-31) Anion Gap 11 (5-15) Blood Urea Nitrogen 27 mg/dL (9-23) Creatinine 6.13 mg/dL (0.700-1.30) Glomerular Filtration Rate Calc 11 mL/min (>90) BUN/Creatinine Ratio 4.4 (10.0-20.0) Serum Glucose 145 mg/dL (74-106) Calcium Level 9.4 mg/dL (8.7-10.4) Random Vancomycin Level 13.9 ug/mL (5-10) White Blood Count 8.9 10^3/uL (4.4-10.8) Red Blood Count 3.43 10^6/uL (4.5-5.90) Hemoglobin 11.0 g/dL (13.5-17.5) Hematocrit 32.8 % (41.0-53.0) Mean Corpuscular Volume 95.5 fL (80.0-100.0) Mean Corpuscular Hemoglobin 32.0 pg (28.0-32.0) Mean Corpuscular Hemoglobin Concent 33.5 g/dL (32.0-36.0) Red Cell Distribution Width 13.6 % (11.8-14.3) Platelet Count 267 10^3/uL (140-450) Mean Platelet Volume 8.9 fL (6.9-10.8) Neutrophils (%) (Auto) 67.3 % (37.0-80.0) Lymphocytes (%) (Auto) 19.0 % (10.0-50.0) Monocytes (%) (Auto) 11.4 % (0.0-12.0) Eosinophils (%) (Auto) 1.6 % (0.0-7.0) Basophils (%) (Auto) 0.7 % (0.0-2.0) Neutrophils # (Auto) 6.0 10 ^3/uL (1.6-8.6) Lymphocytes # (Auto) 1.7 10 ^3/uL (0.4-5.4) Monocytes # (Auto) 1.0 10 ^3/uL (0-1.3) Eosinophils # (Auto) 0.1 10 ^3/uL (0-0.8) Basophils # (Auto) 0.1 10 ^3/uL (0-0.2) Nucleated Red Blood Cells 0.0 % Phosphorus Level 3.7 mg/dL (2.4-5.1) Test 08/19/24 03:22 08/17/24 03:17 08/16/24 12:08 08/15/24 09:59 Magnesium Level 2.1 mg/dL (1.6-2.6) Total Bilirubin 0.7 mg/dL (0.2-1.0) Aspartate Amino Transferase (AST) 22 U/L (13-40) Alanine Aminotransferase (ALT) 15 U/L (7-40) Alkaline Phosphatase 80 U/L (46-116) Total Protein 7.8 g/dL (5.7-8.2) Albumin 4.7 g/dL (3.2-4.8) Triglycerides Level 172 mg/dL (< 150) Cholesterol Level 145 mg/dL (< 200) LDL Cholesterol 77 mg/dL (< 100) HDL Cholesterol 41 mg/dL (40-59) Blood Gas Specimen Type Arterial Blood Gas Sample Site Right radial Blood Gas Patient Temperature 37.0 Arterial Blood Date Drawn [id number] Arterial Blood pH 7.407 (7.350-7.450) Arterial Blood Partial Pressure CO2 34.5 mmHg (35.0-48.0) Arterial Blood Partial Pressure O2 100.9 mmHg (83.0-108.0) Arterial Blood HCO3 21.2 mmol/L (21.0-28.0) Arterial Blood Oxygen Saturation 96.8 % (94.0-98.0) Arterial Blood Base Excess -2.9 mmol/L (-2.0-3.0) Arterial Blood Oxyhemoglobin 95.6 % (94.0-98.0) Arterial Blood Carboxyhemoglobin 0.9 % (0.5-1.5) Arterial Blood Methemoglobin 0.3 % (0.0-1.5) Obey Test Modified Blood Gas Total Hemoglobin 11.50 g/dL (13.5-17.5) Blood Gas Liter Flow 4.00 Blood Gas Modality Nasal cannula FiO2 % 36.0 Blood Gas Spontaneous Rate 18 Blood Gas Spontaneous Tidal Volume 832 Blood Gas Pressure Support 8 Blood Gas PEEP or CPAP 5.0 Test 08/15/24 06:37 08/14/24 10:22 08/12/24 19:40 08/12/24 17:27 Blood Gas Set Respiration Rate 16.0 Blood Gas Tidal Volume 500.0 Hepatitis B Surface Antigen Negative (Negative) Urine Color Light-brown (Yellow) Urine Clarity Turbid (Clear) Urine pH 6.0 (5.0-9.0) Urine Specific [place] 1.015 (1.001-1.035) Urine Protein 2+ (Negative) Urine Ketones Negative (Negative) Urine Blood Negative /uL (Negative) Urine Nitrite Negative (Negative) Urine Bilirubin Negative (Negative) Urine Urobilinogen Normal mg/dL (Negative) Urine Leukocyte Esterase Negative /uL (Negative) Urine RBC <1 /hpf (0 - 3) Urine Microscopic WBC < 1 /HPF (0-3) Urine Squamous Epithelial Cells Mod /hpf (<5) Urine Bacteria None seen /hpf (None Seen) Urine Glucose Normal mg/dL (Normal) Lactic Acid Level 3.6 mmol/L (0.4-2.0) Troponin I High Sensitivity 76631 ng/L (</=54) Test 08/12/24 15:46 08/12/24 14:20 Blood Gas Critical Value Read Back Yes Blood Gas Notified Whom janessa Head md Blood Gas Notified Time [id number] Blood Gas Notified By rebeka Freire rrt Differential Total Cells Counted 100.0 (100) Neutrophils % (Manual) 40 (37.0-80.0) Band Neutrophils % (Manual) 6 Lymphocytes % (Manual) 41 (10.0-50.0) Monocytes % (Manual) 12 (0-12) Eosinophils % (Manual) 0 (0-7) Basophils % (Manual) 0 (0.0-2.0) Metamyelocytes % (manual) 1 Myelocytes % (Manual) 0 Promyelocytes % (Manual) 0 Blast Cells % (Manual) 0 Reactive Lymphocytes 0 Platelet Estimate Adequate Anisocytosis (manual) Slight Macrocytosis Slight [place] Cells Few Prothrombin Time 12.1 sec (9.3-11.8) Prothrombin Time INR 1.16 (0.9-1.15) Activated Partial Thromboplast Time 39.3 SEC (24.5-34.5) Uric Acid 4.3 mg/dL (3.7-9.2) B-Type Natriuretic Peptide 52.46 pg/mL (0-100) Amylase Level 94 U/L (30-118) Other Laboratory Tests 08/22/24 06:50 08/20/24 04:03 Brief Hx & Hospital Course: see dictated note Condition at Discharge: Fair Final Diagnosis/Problems List acute mi Discharge Disposition: Home with Health Services Discharge Instruct/Medications Diet: Renal Activity: No Restrictions, As Tolerated Follow Up/Referral: fu with pcp/cardiology/ dialysis Medications: resume home meds script to pharmacy Discharge Statement: "Patient was advised to return to the ER or call 911 if any headaches, dizziness, shortness of breath, chest pain, abdominal pain, bleeding, fevers, or worsening of medical condition. Patient was counseled about treatment plan, medications, possible side effects, patientverbalized understanding. All questions were answered to the best of my ability. This discharge took greater then 30 minutes in planning, reviewing documentation, counseling the patient, and discussing with other team members." ASSESSMENT ASSESSMENT Assessment acute mi Date of Service: Aug 22, 2024 Billing Provider: MAUREEN DOUGHERTY MD Common Visit Codes: 03608-[facility]/OBS DISCH DAY >30min MAUREEN DOUGHERTY MD Aug 22, 2024 14:32
--- NOTE | 2024-08-22 17:02 | DVHDS ---
DATE OF DISCHARGE: 08/22/2024 HISTORY OF PRESENT ILLNESS: The patient is a 49-year-old gentleman who was admitted after he was noted to have an altered level of consciousness while at the dialysis center. The patient subsequently was intubated in the emergency room and underwent cardiorespiratory arrest requiring use of CPR. The patient has a history of end-stage renal disease, on hemodialysis as well as hypertension, GERD, peripheral vascular disease, and status post bilateral midfoot amputations. HOSPITAL COURSE: The patient was admitted to the ICU. The patient was noted to have acute myocardial infarction. The patient underwent coronary angiography by Dr. Ruth with subsequent PCI and stent placement of the proximal circumflex artery. The patient was seen in nephrologic consult by Dr. Croft. The patient was hypotensive and that since resolved. The patient was successfully extubated. The patient post extubation had altered level of consciousness with possible CVA. 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 MICHAEL done showed no evidence of any vegetations or clots. The patient's ejection fraction was 65% to 70%. The patient will now be discharged home to resume his home medications as well as to be on aspirin 81 mg daily, Brilinta 90 mg b.i.d., Coreg 6.25 mg b.i.d., and clonidine 0.1 mg p.o. b.i.d. He will follow up with Cardiology as well as Nephrology for continued dialysis. He will also be placed on Lipitor 80 mg at bedtime. FINAL DIAGNOSES: * Acute respiratory failure. * Shock, septic, questionable cardiac. * Acute myocardial infarction status post angiography and stenting. * Transaminitis. * End-stage renal disease, on hemodialysis. * Status post CPR. * CVA, likely old. * Peripheral vascular disease with bilateral midfoot amputations. Time spent in discharge planning and review of plan with the patient, family, and nursing was 39 minutes. MD NADINE Brody/TONY/CONG TID: [id number] RECEIPT: [id number]
[2024-08-22] MEDS ORDERED: TICA90TA PO (17:15)
[2024-08-22] MEDS ORDERED: CLON0.1T PO (17:15)
[2024-08-22] MEDS ORDERED: ASPI1TAB20 PO (17:15)
[2024-08-22] MEDS ORDERED: CARV6.2517 PO (17:15)
[2024-08-22] MEDS ORDERED: ATOR-507 PO (17:16)
== END 2024-08-22 22:51 | disposition home health service (06) | DRG 853 ==
LOC: EDSEX 14:06 → ER 14:06 → EDBD 14:06 → OVERFLOW 19:21 → ICU WEST 19:25 → TELE-WESTW 08-20 00:45
PROVIDERS: ADMIT Internal Medicine; ATTEND Internal Medicine
PROC: 027034Z Dilation of Coronary Artery, One Artery with Drug-eluting Intraluminal Device, Percutaneous Approach (ICD-10-PCS; principal; 2024-08-12)
PROC: 02HV33Z Insertion of Infusion Device into Superior Vena Cava, Percutaneous Approach (ICD-10-PCS; 2024-08-12)
PROC: 0BH17EZ Insertion of Endotracheal Airway into Trachea, Via Natural or Artificial Opening (ICD-10-PCS; 2024-08-12)
PROC: 5A1945Z Respiratory Ventilation, 24-96 Consecutive Hours (ICD-10-PCS; 2024-08-12)
PROC: 5A12012 Performance of Cardiac Output, Single, Manual (ICD-10-PCS; 2024-08-12)
PROC: B211YZZ Fluoroscopy of Multiple Coronary Arteries using Other Contrast (ICD-10-PCS; 2024-08-12)
PROC: 5A1D70Z Performance of Urinary Filtration, Intermittent, Less than 6 Hours Per Day (ICD-10-PCS; 2024-08-14)
PROC: 5A1D70Z Performance of Urinary Filtration, Intermittent, Less than 6 Hours Per Day (ICD-10-PCS; 2024-08-16)
PROC: 5A1D70Z Performance of Urinary Filtration, Intermittent, Less than 6 Hours Per Day (ICD-10-PCS; 2024-08-18)
PROC: 5A1D70Z Performance of Urinary Filtration, Intermittent, Less than 6 Hours Per Day (ICD-10-PCS; 2024-08-20)
DX: A41.9 Sepsis, unspecified organism (principal); G93.41 Metabolic encephalopathy; I46.9 Cardiac arrest, cause unspecified; I21.4 Non-ST elevation (NSTEMI) myocardial infarction; J96.01 Acute respiratory failure with hypoxia; N18.6 End stage renal disease; R65.21 Severe sepsis with septic shock; G93.1 Anoxic brain damage, not elsewhere classified; I12.0 Hypertensive chronic kidney disease with stage 5 chronic kidney disease or end stage renal disease; E87.6 Hypokalemia; E11.22 Type 2 diabetes mellitus with diabetic chronic kidney disease; E11.65 Type 2 diabetes mellitus with hyperglycemia; E11.51 Type 2 diabetes mellitus with diabetic peripheral angiopathy without gangrene; D63.1 Anemia in chronic kidney disease; G25.2 Other specified forms of tremor; K21.9 Gastro-esophageal reflux disease without esophagitis; R74.01 Elevation of levels of liver transaminase levels; I25.10 Atherosclerotic heart disease of native coronary artery without angina pectoris; E78.5 Hyperlipidemia, unspecified; Z79.4 Long term (current) use of insulin; Z79.899 Other long term (current) drug therapy; Z99.2 Dependence on renal dialysis; Z83.3 Family history of diabetes mellitus; Z88.5 Allergy status to narcotic agent; Z86.73 Personal history of transient ischemic attack (TIA), and cerebral infarction without residual deficits; Z88.8 Allergy status to other drugs, medicaments and biological substances
CPT/HCPCS: 31500; 31720; 36415; 36556; 36600; 70450; 71045; 80048; 80053; 80061; 80202; 81001; 82150; 82805; 82962; 83605; 83735; 83880; 84100; 84484; 84550; 85007; 85025; 85027; 85610; 85730; 87040; 87070; 87077; 87081; 87186; 87205; 87340; 90935; 92941; 92950; 93005; 93306; 93454; 93886; 94002; 94003; 94640; 95819; 96365; 97163; 99152; 99291; 99292; C1887; G0378; J0171; J1642; J1815; J2470; J2543; J2704; J3490; P9047; Q9967